=== PATIENT | female | born 1950 | race Caucasian/White ===

== ENCOUNTER → 2023-09-08 06:34 | Day surgery (SDC) | payer OTHER, SELFPAY | LOC: CATH 06:34 | PROVIDERS: ATTENDING PHYSICIAN Internal Medicine; FAMILY PHYSICIAN Family Medicine | DX: I08.3 Combined rheumatic disorders of mitral, aortic and tricuspid valves (principal); R00.2 Palpitations; E78.5 Hyperlipidemia, unspecified; Z87.891 Personal history of nicotine dependence; Z79.82 Long term (current) use of aspirin | CPT/HCPCS: 93312; 93320; 93325 ==

== ENCOUNTER → 2023-09-09 14:27 | Outpatient (REF) | payer OTHER, SELFPAY | LOC: RAD 14:27 | PROVIDERS: ATTENDING PHYSICIAN Thoracic Surgery (Cardiothoracic Vascular Surgery); FAMILY PHYSICIAN Family Medicine | DX: I34.0 Nonrheumatic mitral (valve) insufficiency (principal); Z01.818 Encounter for other preprocedural examination | CPT/HCPCS: 71275; 74174; Q9967 ==

== ENCOUNTER 2023-09-15 04:42 | Inpatient (IN) | payer OTHER, SELFPAY ==
[2023-09-01 07:46] VITALS: BMI 20.8
[2023-09-01 08:45] LABS: % Basophils 1.4 % (0-2); % Eosinophils 2.9 % (0-6); % Immature Granulocytes 0.2 % (0-0.5); % Lymphocytes 29.5 % (20.5-51.1); % Monocytes 9.4 % (1.7-9.3); % Neutrophils 56.6 % (42.2-75.2); Absolute Basophils 0.1 10^3/uL (0-0.2); Absolute Eosinophils 0.1 10^3/uL (0-0.7); Absolute Lymphocytes 1.2 10^3/uL (1.2-3.4); Absolute Monocytes 0.4 10^3/uL (0.1-0.6); Absolute Neutrophils 2.4 10^3/uL (1.4-6.5); Hematocrit 39.3 % (37.0-47.0); Hemoglobin 14.1 g/dL (12.0-16.0); Mean Corp Hgb Conc. 35.9 g/dL (33.0-37.0); Mean Corpuscular Hgb 32.8 pg (27.0-31.0); Mean Corpuscular Volume 91.4 fL (81.0-99.0); Mean Platelet Volume 9.7 fL (7.4-10.4); Nucleated Red Blood Cells % 0 %; Platelet Count 331 10^3/uL (130-400); White Blood Cell Count 4.2 10^3/uL (4.8-10.8)
[2023-09-01 08:46] LABS: INR 1.02; PT 13.7 Sec (11.4-14.6)
[2023-09-01 08:47] LABS: APTT 29.9 Sec (23.4-35.0)
[2023-09-01 09:05] LABS: Urine Albumin Negative (Neg - Trace); Urine Bilirubin Negative (Negative); Urine Character Clear (Clear); Urine Color Yellow; Urine Glucose Negative (Negative); Urine Ketone Negative (Negative); Urine Leukocyte Negative (Negative); Urine Nitrite Negative (Negative); Urine Occult Blood Negative (Negative); Urine Specific Gravity 1.015 (<1.030); Urine Urobilinogen Negative (Neg - 1+)
[2023-09-01 09:11] LABS: ALT (SGPT) 20 U/L (0-35); AST (SGOT) 33 U/L (14-36); Albumin 4.6 g/dl (3.5-5.0); Alkaline Phosphatase 74 U/L (38-126); Blood Urea Nitrogen 18 mg/dl (7-17); Calcium 10.2 mg/dl (8.4-10.2); Carbon Dioxide 33 mmol/L (22-30); Chloride 101 mmol/L (98-107); Direct Bilirubin 0.4 mg/dl (0.0-0.4); Estimated Creatinine Clearance 61 ml/min; Glucose 87 mg/dl (70-99); Sodium 139 mmol/L (135-145); Total Bilirubin 1.4 mg/dl (0.2-1.3); Total Protein 7.6 g/dl (6.3-8.2); eGFR > 60.00
[2023-09-01 10:20] LABS: Glycohemoglobin (HgbA1c) 5.3 % (4.0-5.6)
--- NOTE | 2023-09-01 10:29 | CM ---
spoke to pt in PAT's , she is prev indep, lives with her S.O. in a 2 story home with 1 step to enter. she denies any dme's. she has the cardiac educ book, soap and instructions. she is agreeable to a f/u visit from the ct transitional care nurse
after dc. plan is for MVR 09/15, cm role explained and all questions answered.
[2023-09-15] VITALS (15 sets, daily range): BP systolic 103–143; BP diastolic 51–82; BMI 19.8
[2023-09-15] MEDS: PROTONIX 40 MG PO (05:06)
[2023-09-15] MEDS: BACTROBAN 2% OINTMENT 1 APPLIC NASAL ×2 (05:07→19:54)
[2023-09-15] MEDS: MAGNESIUM OXIDE 500 MG PO (05:07)
[2023-09-15] MEDS: LOPRESSOR 25 MG PO (05:07)
--- NOTE | 2023-09-15 05:25 | PTCARENOTE ---
Pt arrived to CVICU from home for same day admission; x2 home showers confirmed; pt prepped and clipped; CHG wipes provided; all admission and pre-op questions asked and answered; Home medications confirmed; ABO lab drawn and sent; pre-op medication
administered; pt's family brought to bedside; awaiting call from CVOR;
--- NOTE | 2023-09-15 06:10 | W.CVOR.SURPR ---
CVOR Surgeon Immed Pre Op
-
I have examined this patient prior to performance of the scheduled procedure.
The patient's condition is unchanged from the time of the dictated/written History and
Physical and the patient is able to undergo the scheduled procedure.
MV Repair, +/- CANDY Clip, will need to really look carefully at the AV for the degree of AI.
[2023-09-15 07:07] LABS: ACT+ - POC 82 Seconds (82-134)
[2023-09-15 07:22] LABS: B.E. - POC 1.4 mmol/L; Glucose - POC 90 mg/dl (65-99); HCO3 - POC 27 mmol/L (21-29); Hematocrit - POC 32 % PCV (37-47); Hemodilution- POC No; Ionized Calcium - POC 1.28 mmol/L (1.12-1.27); PCO2 - POC 46 mmHg (35-45); PO2 - POC 487 mmHg (80-100); Potassium - POC 3.5 mmol/L (3.6-5.0); Sodium - POC 142 mmol/L (135-145); pH - POC 7.38 (7.35-7.45)
[2023-09-15 07:47] LABS: Urine Albumin Trace (Neg - Trace); Urine Bilirubin Negative (Negative); Urine Character Clear (Clear); Urine Color Yellow; Urine Glucose Negative (Negative); Urine Ketone Negative (Negative); Urine Leukocyte Negative (Negative); Urine Nitrite Negative (Negative); Urine Occult Blood Negative (Negative); Urine Specific Gravity 1.015 (<1.030); Urine Urobilinogen Negative (Neg - 1+)
[2023-09-15 08:12] LABS: ACT+ - POC 443 Seconds (82-134)
--- NOTE | 2023-09-15 08:22 | CM ---
Reviewed chat. Ms. Don is in the operating room today. Prior to admission she resides with her significant other in a two story home with one step to enter. She does not have any DME in the home. Medical work-up in progress. The discharge plan
is to return home with her significant other and a home visit by the Cardiothoracic Transitional Care Nurse when medically stable.
[2023-09-15 08:45] LABS: ACT+ - POC 467 Seconds (82-134)
[2023-09-15 08:47] LABS: B.E. - POC 5.1 mmol/L; Glucose - POC 110 mg/dl (65-99); HCO3 - POC 27 mmol/L (21-29); Hematocrit - POC 22 % PCV (37-47); Hemodilution- POC Yes; Hemoglobin Calculated - POC 7.5; Ionized Calcium - POC 0.94 mmol/L (1.12-1.27); PCO2 - POC 29 mmHg (35-45); PO2 - POC 362 mmHg (80-100); Potassium - POC 4.5 mmol/L (3.6-5.0); Sodium - POC 137 mmol/L (135-145); pH - POC 7.58 (7.35-7.45)
[2023-09-15 09:11] LABS: ACT+ - POC 441 Seconds (82-134)
[2023-09-15 09:27] LABS: B.E. - POC 2.8 mmol/L; Glucose - POC 148 mg/dl (65-99); HCO3 - POC 27 mmol/L (21-29); Hematocrit - POC 30 % PCV (37-47); Hemodilution- POC Yes; Hemoglobin Calculated - POC 10.3; Ionized Calcium - POC 1.05 mmol/L (1.12-1.27); O2 Saturation %Calculated-POC 99.9 5 (92-96); PCO2 - POC 37 mmHg (35-45); PO2 - POC 334 mmHg (80-100); Potassium - POC 4.1 mmol/L (3.6-5.0); Sodium - POC 140 mmol/L (135-145); pH - POC 7.47 (7.35-7.45)
[2023-09-15 09:58] LABS: ACT+ - POC 112 Seconds (82-134)
[2023-09-15 10:04] LABS: B.E. - POC -0.4 mmol/L; Glucose - POC 133 mg/dl (65-99); HCO3 - POC 24 mmol/L (21-29); Hematocrit - POC 24 % PCV (37-47); Hemodilution- POC Yes; Hemoglobin Calculated - POC 8.2; Ionized Calcium - POC 1.32 mmol/L (1.12-1.27); PCO2 - POC 34 mmHg (35-45); PO2 - POC 513 mmHg (80-100); Potassium - POC 3.7 mmol/L (3.6-5.0); Sodium - POC 143 mmol/L (135-145); pH - POC 7.44 (7.35-7.45)
--- NOTE | 2023-09-15 10:37 | W.PN.CT.SURG ---
CT Surgery Operative Note
-
CARDIAC SURGERY OPERATIVE REPORT
Preoperative Diagnosis: Myxomatous degeneration the mitral valve, with severe mitral valve insufficiency, symptomatic
Postoperative Diagnosis: Same
Procedure(s) Performed:
1. Standard sternotomy with aortic and bicaval cannulation
2. Radical mitral valve repair [30 mm band annuloplasty, closure of P1 P2 cleft and P2 P3 cleft, 2 pairs of CV 4 [place]-Joel to the posterior leaflet and 1 pair to the A2 segment of the anterior leaflet]
3. Left atrial appendage ligation [45 mm clip]
4. Placement of temporary atrial ventricular pacing wires
5. Transesophageal echocardiography
Date of Surgery: 09/15/2023
Comorbidities:
1. 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
2. PVCs
3. Hypertension
4. Former smoker of 1 pack/day for 35 years
5. Raynaud's syndrome
6. Osteoporosis
7. Spinal stenosis
8. Cataracts status post resection
9. Acute on chronic congestive heart failure with EF of approximately 40% with global hypokinesis preoperatively
Attending Surgeon: Daniel Martinez MD, MS
Assistants: Abigail Dudley PA-C (present and necessary to nurse first assist, retraction, suction, exposure, suture management, and wound closure under my direction)
Anesthesiology: Manuelito Rodarte MD and Glory Tello CRNA
Scrub and Circulating RNs: Marsha Ragsdale, RN, Sonia Disla RN
Surgical Supply Assistant: Anahi Cross CCP
Anesthesia: GETA
EBL: per perfusion records
Products: 1 prbc
CPB Time: 86 minutes
Aortic Cross Clamp Time: 55 minutes
Indication(s) for Procedures: This is a 73-year-old female with known mitral valve insufficiency. Repeat echocardiogram recently demonstrates severe eccentric anterior directed mitral valve insufficiency. Her LV dimensions were also starting to
dilate her EF had dropped slightly. She met stage D and class I indication for mitral valve intervention.
Mitral Valve Description: By leaflet thickening, extremely tall and long posterior leaflet with an enlarged prolapsing P2 scallop. Large cleft between P1 and P2 and P2 and P3. Dilated annulus mostly at the P2 P3 origin.
Findings: Ventricular ejection fraction preoperatively was approximate 55% with no regional wall motion abnormalities. Following surgery EF did decline to approximately 40%, global hypokinesis without regional wall motion abnormalities. Mitral
valve was repaired by/reapproximation at P1 P2 and P2 P3 followed by CV 4 Dufur-Joel neochordoplasty to the P2 scallop followed by a single [place]-Joel from the posterior medial pathway muscle head to the A2 segment. I then remodeled the anterior
leaflet at the free margin at A2 A3. The annulus was supported with a total of 12 nonpledgeted 2 Ethibond sutures from trigone to trigone with a 30 mm band these were secured with core knots. Dynamic inflation of the left ventricle demonstrated a
competent valve, ink test along the coaptation margin demonstrated a posterior coaptation line with approximately 6 to 8 mm of coaptation height. At the conclusion of the case, there is no residual mitral valve insufficiency, no systolic anterior
motion of the leaflets, and a mean gradient of 1 across the mitral valve. Cardiac index was approximately 1.7 and improved with volume and blood to 1.9 without inotropic support. Hemodynamics were stable. She regained sinus rhythm after short
period of atrial pacing. Left atrial pended was verified to be free of any thrombus or debris preoperatively. Following surgery the appendage was totally occlusive. The base was quite wide and large and was difficult to place the clip completely
flush due to the dimensions.
Specimen(s): None.
Prosthesis:
1. 30mm FLORES PhysioFlex Band, SN [id number]
2. 3 pairs of CV-4 GoreTex chords
3. Multiple 5-0 prolene sutures
Description of Procedure: The patient was taken to the operating room. Their identity and procedure to be performed were verified and they were positioned supine on the operating table. Induction via general anesthesia with endotracheal intubation
was performed and central venous access and arterial monitoring were inserted. A preoperative transesophageal echocardiogram was performed to assess cardiac function and valvular function. The patient was then prepped and draped from chin to feet in
a sterile fashion. A preoperative time-out was performed with all members of the team present. A midline chest incision was performed along with median sternotomy. The innominate vein was isolated. Full heparinization was given (a total of 40,000
units). We created a pericardial well. The aortic cannulation site was chosen where it was soft, pliable, and free of calcium. Cannulation was performed with an arterial cannula in the ascending aorta, angled metal tip cannular in the superior vena
cava and straight bendable cannula in the inferior vena cava. The arterial cannula line had an appropriate bounce and correlating pressures. Next, a root vent/antegrade cannula was inserted into the ascending aorta. The ACT was confirmed to be over
400 and retrograde autologous priming was performed before commencing cardiopulmonary bypass. The pulmonary artery was away from the aorta to facilitate a clamp site. Heart was then elevated rightward and the base of the appendage was
measured and sized to a 45 mm clip. Sondergaard�s groove was developed after creating the oblique sinus. The aortic cross-clamp was placed after decreasing the flow on the bypass and mean arterial pressure. A total of 1.2L initial dose of antegrade
Del-Nido cardioplegia solution was given and planned for re-dosing every 75 minutes as necessary. There was rapid electro-mechanical arrest of the heart at 400 cc of cardioplegia. The left ventricle was observed for distention on echocardiogram and
manual palpation. Cold slush was placed into a lap on the RV and we systemically cooled to 34 degrees centigrade.
Carbon dioxide was used to flood the field. The mitral valve was access via the intra-atrial groove followed by valve analysis. The mitral valve was repaired as described above. The left ventricular vent was repositioned across the mitral valve
into the left ventricular and the left atrium was closed with a 3-0 prolene.
De-airing maneuvers were performed and temporary bipolar ventricular pacing wires were placed on the base of the right ventricle. The patient was placed in a Trendelenburg position and flows on bypass were lowered. The aortic cross clamp was removed
and flows were slowly brought back up. The left atrial suture line was hemostatic. Transesophageal echocardiography revealed no evidence of systolic anterior motion and ventricular function was normal. Once de-airing was satisfactory the left
ventricular and root vents were removed. After verifying acceptable parameters, we initiated weaning from cardiopulmonary bypass. Once we were off cardiopulmonary bypass, the venous cannulas was clamped and removed sequentially. A test dose of
protamine was administered and the patient was monitored for any adverse reaction before resuming protamine. Once half of the protamine dose was delivered, pump suckers were turned off and the systolic blood pressure was lowered for aortic
decannulation. The aortic cannula was removed and purse strings were tied down. All cannulation sites were oversewn with a 4-0 prolene. The left atrial suture line was inspected and hemostasis was confirmed. Mediastinal hemostasis was obtained. Two
#24 Luis drains were placed within the pericardium along with a single 19 [place] Luis drain to the right hemithorax. The sternum was approximated with 4 #6 single and 3 #6 double stainless steel wires. Fascia was approximated with #1 vicryl
suture. The subcutaneous, dermis and epidermis were closed in layers in a running fashion. All suture taken with care to avoid inadvertent puncture to the bilateral breast implants. The skin wound was cleansed and dressed.
All instrument, sponge, and needle counts were confirmed to be correct x 2 at the end of the operation. The patient was transferred to the cardiac intensive care unit in critical but stable condition.
I, Dr. Daniel Martinez, was present, scrubbed for, and performed all critical elements of this procedure.
Daniel Martinez MD, MS
Cardiothoracic Surgeon
[facility]
This dictation was created using the [employer] dictation system. Please excuse any grammatical, typographical, or 'sound alike' errors
[2023-09-15 10:44] LABS: Glucose - Point of Care 117 mg/dl (70-99)
--- NOTE | 2023-09-15 10:45 | W.PN.UPDATE ---
Update Note
Progress Note Update
Crystalloid:� 3200
U.O.:� 400
UF:� 2200
Blood:� 1uPRBCs
Wires:� AV
Inotropes:� None
Pressors:� Levophed
Sedatives:� Precedex
�
NEURO: sedated on Precedex, pupils +1mm B/L
RESP: #8OT @22cm>12/550/60/5. Lungs clear B/L. 2 mediastinal (15cc on arrival) and R pleural (10cc on arrival) chest tubes to -20cm suction. Sanguineous drainage
CV: RRR +S1, S2, no S3, no�rub, no murmur. Dermabond to median sternotomy. RIJ w/Tiff locked @ 49cm. PA 29/14; CVP 8; C.O 3.7/CI 2.7
ABD: round, soft, no BS
EXT: no edema, +2/4 DP pulses B/L, no femoral bruit, left radial A-line intact
: Lauren with clear yellow urine
�
A/P: POD #0 s/p Radical mitral valve repair [30 mm band annuloplasty, closure of P1 P2 cleft and P2 P3 cleft, 2 pairs of CV 4 [place]-Joel to the posterior leaflet and 1 pair to the A2 segment of the anterior leaflet], CANDY Clip
DYLAN: EF�50-55%
- wean and extubate
- start ASA 81mg when tolerating PO
- Wean levophed for goal MAPs >65
- F/u ABG, EKG, and labs
- Goal CVP >10 while on pressors; 5% albumins ordered PRN
- will start low dose BB when BP allows
- will need instruction regarding antibiotic prophylaxis for dental and invasive procedures
- Cardiology consulted
�
# acute surgical blood loss anemia-expected
- trend CBC
- transfusion goal Hgb <8
- will start Vit C and IV Iron x 3 days�
�
# Hyperglycemia
- insulin infusion x 24h
�
#Raynaud's Syndrome
- continue to monitor extremities while on pressors
[2023-09-15] MEDS: ALBUMIN 5% 250 IV ×3 (10:51→22:12)
[2023-09-15 10:55] LABS: Hematocrit 27.9 % (37.0-47.0); Hemoglobin 10.3 g/dL (12.0-16.0); Platelet Count 137 10^3/uL (130-400)
[2023-09-15 10:56] LABS: B.E. -0.5 mmol/L; HCO3 22.8 mmol/L (21-28); Ionized Calcium 1.19 mMOL/L (1.15-1.33); PCO2 32 mmHg (32-35); PO2 222 mmHg (83-108); Potassium 3.8 mMOL/L (3.5-5.1); Sodium 138 mMOL/L (136-145); pH 7.46 (7.35-7.45)
[2023-09-15 11:08] LABS: INR 1.65; PT 19.3 Sec (11.4-14.6)
[2023-09-15 11:09] LABS: APTT 30.7 Sec (23.4-35.0)
[2023-09-15 11:10] LABS: Blood Urea Nitrogen 12 mg/dl (7-17); Estimated Creatinine Clearance 71 ml/min; Glucose 112 mg/dl (70-99); Magnesium 3.1 mg/dl (1.6-2.3)
[2023-09-15] MEDS: KCL 50 IV ×2 (11:10→15:26)
--- NOTE | 2023-09-15 11:20 | PTCARENOTE ---
Received pt from [facility] at 1030; pt intubated and sedated; NSR on monitor and VSS; Epicardial A/v wires set to back up VVI 30/10 and no pacing noted; + rub; RIJ Cordis, [place] floated to 47, Right A-line and PIV x2, all lines leveled and zeroed; Levo,
Insulin and Precedex infusing see flow sheet for details; lungs diminished bilaterally; ET tube size 8 and 22 @ lip; Vent settings SIMV FiO2 40%, Rate 12, Tidal Volume 500 and PEEP 5; CT x3 to -20 wall suction, no air leak and no crepitus noted;
hypoactive bowel sounds; Lauren Catheter draining clear yellow urine; palpable pulses throughout; no edema noted; Sternal incision C/D/I; see nursing documentation for further details.
CI 1.94
CO 2.98
SVR 1610
--- NOTE | 2023-09-15 11:32 | W.PN.CD ---
Today's Communication / Plan
-
continue current care plan
Impression / Plan
-
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
09/15/23: s/p Radical mitral valve repair [30 mm band annuloplasty, closure of P1 P2 cleft and P2 P3 cleft, 2 pairs of CV 4 [place]-Joel to the posterior leaflet and 1 pair to the A2 segment of the anterior leaflet] & Left atrial appendage ligation [45
mm clip]
doing well immediately post operatively
continue post op protocol
CMY:
-post op ef 40%--not unexpected with severe MR and ef of 50-55% preop
-add GDMT as able
Data
Intraop DYLAN: 09/15/23
�CONCLUSIONS
Preop
Overall LVEF is approximately 50-55% with no RWMA.
�Mildly dilated left atrium.
�Mildly dilated right atrium.
�Mild tricuspid regurgitation.
�Dilated coronary sinus.
�Moderate to severe mitral regurgitation.
�MV annulus is dilated with minimal calcification.
�MR etiology is from PMV leaflet prolapse (P2).
�Mild aortic insufficiency.
�Mild sessile atheroma seen in the descending aorta and distal arch.
POST OPERATIVE FINDINGS
�The patient underwent a MV repair with a size 30 Annuloplasty band, [place]-chords,
�and ligation of the LA appendage.� Postop rhythm remains sinus.� RV function
�remains normal.� Overall LVEF is now approximately 40% with mild global
�hypokinesis.� No significant MR noted.� No perivalvular leaks are noted.� No
�systolic anterior motion of the AMV leaflet noted.� There is no turbulent flow
�in the LVOT.� Mild TR.� PV appears normal.� Mild AI is unchanged (perhaps less
�than preop level).� The LA appendage is clipped.� Just a small area of the
�dilated LA appendage base is left.� No color Doppler flow seen past the clip.�
�Aortic scan is unchanged.
Physical Exam
Vital Signs/Labs
Vital Signs
Temp Pulse Resp BP Pulse Ox
95.7 F L 84 12 143/64 100
09/15/23 11:03 09/15/23 11:00 09/15/23 11:03 09/15/23 05:04 09/15/23 11:19
09/14/23 09/15/23 09/16/23
06:59 06:59 06:59
Actual Weight 52.3 kg
09/15/23 10:42
PT 19.3 Sec (11.4-14.6) H 09/15/23 10:42
INR 1.65 09/15/23 10:42
APTT 30.7 Sec (23.4-35.0) 09/15/23 10:42
Magnesium 3.1 mg/dl (1.6-2.3) H 09/15/23 10:42
Physical Exam
Constitutional: No acute distress and Other (intubated and sedate)
Cardiovascular: Rhythm & rate is regular, Pedal edema is absent, JVD pressure is normal, Systolic murmur absent and Diastolic murmur absent
Respiratory: Respiratory effort normal, Lungs clear to auscul., Wheeze Absent, Crackles Absent and Rhonchi Absent
Neuro/Psych: AO x 3
Data Reviewed
-
Date of Service: September 15, 2023
EKG: Tracing Personally Visualized and interpreted (nsr prolonged qt)
[2023-09-15] MEDS: MORPHINE SULFATE 2 MG IV (11:49)
[2023-09-15] MEDS: NSS 500 IV (11:50)
[2023-09-15] MEDS: ZINACEF 1500 MG IV ×2 (11:50)
[2023-09-15] MEDS: STERILE WATER FOR INJECTION 16 ML IV ×2 (11:50)
[2023-09-15] MEDS: TYLENOL PO ×2 (11:51→15:13)
[2023-09-15 12:02] LABS: Glucose - Point of Care 83 mg/dl (70-99)
--- NOTE | 2023-09-15 12:51 | PTCARENOTE ---
Mediastinals Chest tube with +1 continuous air leak; P. Murt CVPA updated and in to see pt; no new orders at this time.
--- NOTE | 2023-09-15 13:06 | CON.INTV ---
Consultation
Consultation Request
Date/Time Consultation Requested: 09/15/2023 - 0959
Date/Time Consultation Performed: 09/15/2023
Requesting Provider: Wicho Amaro PA-C
Performing Provider: Dr. Jacinto
Reason for Consultation: s/p radical mitral valve repair
Medical History
-
Chief Complaint: radical MV repair
History of Present Illness:
73-year-old female former tobacco smoker with a past medical history of mitral regurgitation presents for mitral valve repair. She is known to Dr. Martinez with last office visit on 08/26/2023. At that office visit, the patient discussed her severe
eccentric anteriorly-directed mitral valve insufficiency with prolapse of the posterior leaflet with myxomatous degeneration. She has a preserved LVEF at 55% with no regional WMA and RV function was normal. She had a left heart catheterization in
August 2023 which did not demonstrate any significant CAD with mild left ventricular enlargement and global hypokinesis with an EF of approximately 40% visually. After Dr. Martinez reviewed her echocardiogram, he concluded patient has dilated
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 Patient also has mild�moderate tricuspid valve insufficiency with mild�moderate aortic valve insufficiency. Patient does endorse shortness of breath and has
stage D symptomatology with a class I indication for mitral valve intervention. She thus presented today for standard sternotomy with radical mitral valve repair and left atrial appendage ligation, which she underwent without any immediate
complications. Patient was transferred to the CVICU postoperatively and critical care services consulted for additional management/recommendations.
When I saw the patient she was in bed in no acute distress on 4 L/min nasal cannula saturating 100%. Right-sided IJ cordis in place with PAC showing PAP: 33/14. Right radial A-line shows BP 131/57. HR: 80; CVP: 11. NIBP: 124/67. Patient has 2
mediastinal chest tubes and a right-sided pleural catheter. There is a level 1 air leak in the Pleur-evac containing the mediastinal chest tubes. Patient is on insulin drip at 0.6 units/h. She is sleepy but easily arousable and answering my
questions appropriately. She has some chest discomfort but no shortness of breath, headache, abdominal pain, fevers or chills.
PMHx: History of PVCs, hyperlipidemia, former tobacco use disorder (97-hdyo-qvth history, quit in her late 40s), suspected Raynaud's phenomenon, palpitations, severe mitral regurgitation, spinal stenosis, cataracts
PSHx: Spinal fusion (L2-3 - 2000); dental surgery, left femur fracture, cataract surgery, breast implants
Past Medical History
Past Medical History: Other (above as per HPI)
Past Surgical History: Other (above as per HPI)
Social History
Tobacco: Former Smoker (1PPD since at age 17, quit in her 50s)
Alcohol: Occasional
Drug: None
Family History
Family History: CAD (Maternal grandmother) and Diabetes (Father; siblings)
Allergies / Home Medications
Allergies
Allergy/AdvReac Type Severity Reaction Status Date / Time
No Known Allergies Allergy Verified 08/28/23 14:20
Home Medications
Medication Instructions Recorded Confirmed Last Taken Type
cholecalciferol (vitamin D3) 50 50 mcg PO BID 08/11/23 09/15/23 09/14/23 08:00 History
mcg (2,000 unit) capsule (Vitamin
D3)
furosemide 20 mg tablet 20 mg PO DAILY 08/11/23 09/15/23 09/14/23 08:00 History
metoprolol succinate 25 mg 25 mg PO DAILY 08/11/23 09/15/23 09/14/23 08:00 History
tablet,extended release 24 hr
wortthrqxctq-pxijzrta-ludiil tablet 1 tab PO BID 08/11/23 09/15/23 09/14/23 08:00 History
vitamin B complex 1 tab PO BID 08/11/23 09/15/23 09/14/23 08:00 History
aspirin 81 mg chewable tablet 81 mg PO DAILY 09/08/23 09/15/23 09/14/23 08:00 History
Review of Systems
-
History Source: Patient
All other systems: Negative unless noted (12 point ROS performed and is negative unless mentioned above.)
Vitals / Labs / Diagnostic Testing
Vital Signs
Temp Pulse Resp BP Pulse Ox
97.2 F 78 11 143/64 100
09/15/23 12:03 09/15/23 12:30 09/15/23 12:30 09/15/23 05:04 09/15/23 12:03
Lab Data
09/15/23 10:42
Laboratory Results
09/15/23
10:42
PT 19.3 H
INR 1.65
APTT 30.7
pH 7.46 H
pCO2 32
pO2 222 H
HCO3 22.8
O2 Delivery Level
Diagnostic Testing:
Physical Exam
-
HEENT: Normocephalic and Anicteric
Cardiovascular: S1/S2 and Peripheral Edema (Negative)
Respiratory: Clear, Wheeze (Negative), Rales (Negative), Rhonchi (Negative) and Non-Labored Respirations
GI: Soft, Non Distended and Non Tender
Neurology: Awake and Alert
Skin: Warm and Dry
General: Comfortable and Chills (Negative)
Assessment
-
Assessment: 73-year-old female former tobacco smoker with a PMHx of mitral regurgitation presents for mitral valve repair. Patient has stage D symptomatology and meets class I indication for mitral valve intervention. She presented today for
standard sternotomy with radical mitral valve repair and left atrial appendage ligation, which she underwent without any immediate complications. Patient was transferred to the CVICU postoperatively and pulmonary/critical care services consulted
for additional management/recommendations.
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
Impression:
#Severe mitral valve insufficiency with myxomatous degeneration s/p radical mitral valve repair (POD #0)
#PVCs s/p left atrial appendage ligation (POD#0)
#Anemia
#Former tobacco use disorder with 22-qyzi-gwcm history, quit approximately 15 years ago
Plan:
Patient already extubated to nasal cannula
Continue supplemental oxygen with goal SpO2 >90-94%
Encourage incentive spirometer use
Pulmonary artery catheter parameters will be followed
Pressors/antihypertensive/inotropes/diuretics will be provided as needed
Monitor chest tubes output
Monitor air leak in the Pleur-evac involving the mediastinal chest tubes
Monitor hemoglobin
Monitor platelet count and coags
Transfuse blood product if needed
CT surgery following chest tubes
Monitor blood sugar with goal BG 140-180
Insulin drip per protocol
Aspiration precautions
DVT prophylaxis
Early nutrition
Early mobilization
Critical care statement: A total of 41 minutes of critical care time was provided for this patient today. This includes management of ventilator, spontaneous breathing trial, arterial blood gases, pressors, of unstable vital signs, evaluation of the
patient at bedside, reviewing the patient's pertinent medical records including radiographs, microbiology, laboratory evaluations, and discussion with primary team and critical care nursing.
Data:
CXR 09-15-2023: Postoperative chest. Support tubes and lines.
[2023-09-15] MEDS: PEPCID 20 MG IV ×2 (13:14→19:55)
[2023-09-15] MEDS: OFIRMEV 100 IV (13:14)
[2023-09-15] MEDS: NSS (PRESERVATIVE FREE) 8 ML IV ×2 (13:14→19:55)
[2023-09-15 13:21] LABS: Glucose - Point of Care 84 mg/dl (70-99)
--- NOTE | 2023-09-15 13:48 | PTCARENOTE ---
Respiratory at bedside pt placed on CPAP.
[2023-09-15 14:01] LABS: Glucose - Point of Care 87 mg/dl (70-99)
--- NOTE | 2023-09-15 14:10 | PTCARENOTE ---
Pt failed CPAP; respiratory at bedside placed pt back on SIMV.
[2023-09-15 14:27] LABS: Hematocrit 29.5 % (37.0-47.0); Hemoglobin 10.9 g/dL (12.0-16.0); Platelet Count 186 10^3/uL (130-400)
--- NOTE | 2023-09-15 14:44 | PTCARENOTE ---
Respiratory at bedside pt placed on CPAP.
[2023-09-15 14:58] LABS: Glucose - Point of Care 129 mg/dl (70-99)
[2023-09-15] MEDS: PACERONE PO ×2 (15:13→22:12)
[2023-09-15 15:15] LABS: B.E. -1.9 mmol/L; HCO3 19.9 mmol/L (21-28); Ionized Calcium 1.19 mMOL/L (1.15-1.33); O2 Saturation % 98.8 % (94-98); PCO2 25 mmHg (32-35); PO2 203 mmHg (83-108); Potassium 3.8 mMOL/L (3.5-5.1); Sodium 140 mMOL/L (136-145); pH 7.51 (7.35-7.45)
--- NOTE | 2023-09-15 15:22 | PTCARENOTE ---
Labs reviewed with CV SPIKE MAKER; pt extubated at this time; 6L NC 100%.
[2023-09-15] MEDS: ZINACEF 750 MG IV ×2 (15:26→23:59)
[2023-09-15] MEDS: STERILE WATER FOR INJECTION 8.30000000000000071 ML IV ×2 (15:27→23:59)
[2023-09-15] MEDS: TORADOL 15 MG IV (16:15)
[2023-09-15 17:05] LABS: Glucose - Point of Care 92 mg/dl (70-99)
[2023-09-15] MEDS: DILAUDID 0.25 MG IV ×2 (18:08→22:40)
[2023-09-15] MEDS: LOW STRENGTH ASPIRIN 81 MG PO (18:08)
[2023-09-15 19:06] LABS: Glucose - Point of Care 80 mg/dl (70-99)
[2023-09-15] MEDS: CORDARONE 103 MG IV (19:11)
[2023-09-15] MEDS: CORDARONE 518 MG IV (19:12)
[2023-09-15] MEDS: TYLENOL 650 MG PO (19:54)
[2023-09-15] MEDS: SENOKOT-S 1 TABLET PO (19:54)
[2023-09-15] MEDS: ROXICODONE 5 MG PO (19:55)
[2023-09-15] MEDS: LOPRESSOR 12.5 MG PO (19:55)
--- NOTE | 2023-09-15 20:15 | PTCARENOTE ---
Received pt from mika RN. Walking rounds completed. Pt AAOx3, c/o 03/12 sternal pain-see MAR for medication administration. NSR on monitor with PACs. Epicardial A/V wires to back of VVI 01/06, no pacing noted. Heart tones audible. +Rub. +Palpable
pulses. No edema. RIJ cordis, swan floated o 47 cm. Right radial [place] leveled and zeroed. Pulse ox 100% on 4 L NC. Lung sounds diminished. No cough or sputum. CTx3 (Medsx2 to 1 atrium and right pleural to 1 atrium) maintained to -20 cm wall
suction draining red fluid. +1 intermittent air leak noted to meds atrium. Hypoactive BS. Lauren maintained and draining adequate amount of clear, yellow urine. Sternal incision C/D/I. Amio gtt infusing per protocol. Insulin gtt titrated per critical
care glycemic protocol. See work list for full assessment and interventions.
[2023-09-15 21:01] LABS: Glucose - Point of Care 135 mg/dl (70-99)
[2023-09-15 23:02] LABS: Glucose - Point of Care 106 mg/dl (70-99)
[2023-09-16] VITALS (33 sets, daily range): BP systolic 89–125; BP diastolic 46–63; PULSE 64; O2SAT 96–98; BMI 22.0
[2023-09-16] MEDS: TYLENOL 650 MG PO ×7 (00:08→23:46)
[2023-09-16 00:36] LABS: Mixed Venous O2 Saturation 67.6 %
--- NOTE | 2023-09-16 00:45 | PTCARENOTE ---
Pt reassessed. VSS. CVPA notified of decrease in urine output and C.I 1.94, new order received to give 250cc Albumin and to send MVo2.
[2023-09-16 01:04] LABS: Glucose - Point of Care 83 mg/dl (70-99)
[2023-09-16] MEDS: TORADOL 15 MG IV (02:14)
[2023-09-16 02:35] LABS: Hematocrit 30.6 % (37.0-47.0); Hemoglobin 10.7 g/dL (12.0-16.0); Mean Corpuscular Hgb 33.1 pg (27.0-31.0); Mean Corpuscular Volume 94.7 fL (81.0-99.0); Mean Platelet Volume 10.3 fL (7.4-10.4); Platelet Count 165 10^3/uL (130-400); Red Blood Cell Count 3.23 10^6/uL (4.20-5.40); Red Cell Dist. Width 12.8 % (11.5-14.5); White Blood Cell Count 14.1 10^3/uL (4.8-10.8)
--- NOTE | 2023-09-16 02:35 | PTCARENOTE ---
C.I-1.56, C.O-2.40, SVR-1966. CVPA aware, AM labs and repeat MVo2 obtained and sent.
[2023-09-16 02:47] LABS: Blood Urea Nitrogen 16 mg/dl (7-17); Calcium 8.4 mg/dl (8.4-10.2); Carbon Dioxide 22 mmol/L (22-30); Chloride 109 mmol/L (98-107); Estimated Creatinine Clearance 71 ml/min; Glucose 114 mg/dl (70-99); Magnesium 2.7 mg/dl (1.6-2.3); Potassium 4.1 mmol/L (3.5-5.1); Sodium 137 mmol/L (135-145); eGFR > 60.00
[2023-09-16] MEDS: DOBUTREX 500 MG 250 IV (02:56)
[2023-09-16 03:06] LABS: Glucose - Point of Care 97 mg/dl (70-99)
--- NOTE | 2023-09-16 03:10 | PTCARENOTE ---
Labs and vitals reviewed with CVPA, order received to start Dobutamine gtt @ 3mcg/kg/min.
[2023-09-16] MEDS: LIDOCAINE 4% PATCH 1 PATCH TOPICAL (03:33)
[2023-09-16] MEDS: ALBUMIN 5% 250 IV ×2 (03:34→12:33)
--- NOTE | 2023-09-16 04:00 | PTCARENOTE ---
C.I-2.57, C.O-3.96. Order received to decrease Dobutamine to 2mcg/kg/min. Nitro gtt started for SBP in 140s. Pt SR on monitor.
[2023-09-16] MEDS: ROXICODONE 5 MG PO ×2 (04:11→13:17)
--- NOTE | 2023-09-16 07:00 | W.PN.CT ---
Today's Communication / Plan
-
-pod #1
-pt was in nsr 70s, got postop po Lopressor and noted to be briefly junctional low 60s with stable BP - held further po BB
-on iv Amio for brief postop a-fib
-started on Dobut and Nitro overnight
-CI 2.61, CO 4.02. Drips: Dobut 2, Nitro 20, Amio 0.5, insulin
-CT output: 2 meds (+1 air leak last night and none this am) 165/315 and R pleur (no air leak) 15/65 in 12/24 hrs
-gave 2 Albumins overnight
-discussed with Dr. Martinez - continue Dobutamine until tomorrow. Continue daily ASA
-d/c insulin
-maintain Lauren for critical I&O
-encourage IS, OOB
Assessment / Plan
-
- Symptomatic Severe MR - s/p Radical mitral valve repair [30 mm band annuloplasty, closure of P1 P2 cleft and P2 P3 cleft, 2 pairs of CV 4 [place]-Joel to the posterior leaflet and 1 pair to the A2 segment of the anterior leaflet]; LAAE with 45mm clip
by Dr. Martinez on 09/15/23, pod #1
- Intraop DYLAN: LVEF preop was approximate 55% with no regional wma.� Following surgery EF did decline to approximately 40%, global hypokinesis without regional wall motion abnormalities. At the conclusion of the case, there is no residual mitral
valve insufficiency, no systolic anterior motion of the leaflets, and a mean gradient of 1 across the mitral valve.�Left atrial appendage was verified to be free of any thrombus or debris preoperatively.� Following surgery the appendage was totally
occlusive.� The base was quite wide and large and was difficult to place the clip completely flush due to the dimensions.
�
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
- PVCs
- Hypertension
- Former smoker of 1 pack/day for 35 years
- Raynaud's syndrome
- Osteoporosis
- Spinal stenosis
- Cataracts status post resection
- Acute on chronic diastolic congestive heart failure with EF of approximately 40% with global hypokinesis preoperatively
- Acute postop blood loss anemia
- Acute postop atelectasis
- Acute postop hypovolemia with subsequent hypervolemia
- Acute postop junctional rhythm - holding BB
Discussed patient care with: Nursing and Care Team
Subjective
-
Date of Service: September 16, 2023
Objective Data
-
PT 19.3 Sec (11.4-14.6) H 09/15/23 10:42
INR 1.65 09/15/23 10:42
APTT 30.7 Sec (23.4-35.0) 09/15/23 10:42
Vital Signs
Vital Signs
Temp Pulse Resp BP Pulse Ox
97.8 F 64 16 119/61 100
09/16/23 00:00 09/16/23 00:15 09/16/23 00:15 09/16/23 00:00 09/16/23 00:00
CT Intake/Output/Weight
09/15/23 09/15/23 09/16/23
06:59 18:59 06:59
Intake Total 1102.9 / 1601.9 499.0 / 1601.9
Output Total 865 / 1070 205 / 1070
Balance 237.9 / 531.9 294.0 / 531.9
SaO2: 100
Physical Exam
-
General: Awake and AOx3
Cardiovascular: Regular rate & rhythm, No Murmurs and Rub
Respiratory: Decreased Breath Sounds
Sternum: Stable
Incision: Clean, Dry and Dressing Intact
Extremities: No Edema (1+ DP b/l)
Data Reviewed
-
Lab Results: Results Reviewed
Medications: Active Meds Reviewed
Chest X-Ray: Report Reviewed and Image Reviewed
ECG: Report Reviewed and Image Reviewed
[2023-09-16 07:22] LABS: Glucose - Point of Care 100 mg/dl (70-99)
--- NOTE | 2023-09-16 07:29 | W.PN.ANS.POP ---
Anesthesia Post Operative
- Anesthesia Post Op Note
Vital Signs Stable-See Nursing Note: Yes
Airway Patent: Yes
Adequate Pain Control: Yes
Change in Mental Status: No
Current Postoperative Nausea & Vomiting: No
Anesthesia Complications: No
General Anesthetic Recall: No
Unplanned Admission: No
Post Op Hydration Adequate: Yes
- -
Selected Entries
09/16/23
07:20
Pulse 62
Resp Rate 11
Arterial Systolic Pressure 120
Arterial Diastolic Pressure 46
MAP (V-Ximm-Utmfqow Monitor) 68
Pulmonary Artery Systolic Pressure 31
Pulmonary Artery Diastolic Pressure 11
Right Atrial Pressure (RA) 9
[2023-09-16] MEDS: LASIX IV (07:46)
[2023-09-16 07:57] LABS: Glucose - Point of Care 98 mg/dl (70-99)
[2023-09-16 08:03] LABS: Glucose - Point of Care 97 mg/dl (70-99)
[2023-09-16] MEDS: PEPCID 20 MG IV ×2 (08:06→20:13)
[2023-09-16] MEDS: NSS (PRESERVATIVE FREE) 8 ML IV ×2 (08:06→20:13)
[2023-09-16] MEDS: STERILE WATER FOR INJECTION 8.30000000000000071 ML IV (08:06)
[2023-09-16] MEDS: ZINACEF 750 MG IV (08:06)
[2023-09-16] MEDS: KCL 20 MEQ PO (08:07)
[2023-09-16] MEDS: FLEXERIL 5 MG PO ×3 (08:07→21:30)
[2023-09-16] MEDS: DILAUDID 0.25 MG IV (08:07)
[2023-09-16] MEDS: SENOKOT-S 1 TABLET PO ×2 (08:08→20:13)
[2023-09-16] MEDS: PACERONE 200 MG PO (08:08)
[2023-09-16] MEDS: VITAMIN C 500 MG PO (08:08)
[2023-09-16] MEDS: NEURONTIN 100 MG PO ×3 (08:08→21:30)
[2023-09-16] MEDS: LOW STRENGTH ASPIRIN 81 MG PO (08:08)
[2023-09-16] MEDS: BACTROBAN 2% OINTMENT 1 APPLIC NASAL ×2 (08:09→20:12)
--- NOTE | 2023-09-16 08:22 | PTCARENOTE ---
Received pt from shiftman RN; pt AAOx3; Junctional on monitor and VSS; RIJ Fidencioanita, [place] floated to 47, Right A-line and PIV x1 all lines leveled and zeroed; Insulin, Dobutamine, Amiodarone and Nitroglycerin all infusing see flow sheet for
details; + rub; Epicardial A/V wires back up set to 30/10 and no pacing noted; Lungs diminished throughout; CT x3 to -20 wall suction no air leak and no crepitus noted; hypoactive bowel sounds; Lauren Catheter draining elmer colored urine; palpable
pulses throughout; no edema noted; sternal incision C/D/I; see nursing documentation for further details.
CI 2.49
CO 3.83
SVR 1253
[2023-09-16] MEDS: MAGNESIUM OXIDE PO ×2 (08:43→20:13)
[2023-09-16] MEDS: LIDOCAINE 4% PATCH TOPICAL (08:43)
--- NOTE | 2023-09-16 08:51 | W.PN.CD ---
Today's Communication / Plan
-
Routine post operative management.
Wean dobutamine.
Encourage incentive spirometry and ambualtion.
First DOC will be metoprolol when ready for GDMT (unless rate will not tolerate).
Hold amiodarone.
Impression / Plan
-
Impression/Plan: 73 y/o female with myxomatous mitral valve leading to severe, degenerative mitral valve regurgitation and HFpEF (preop LVEF 60%) admitted for elective mitral valve repair.
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
-s/p Radical mitral valve repair (#30 mm band annuloplasty, closure of P1/P2 cleft and P2/P3 cleft, 2 pairs of CV 4 [place]-Joel to the posterior leaflet and 1 pair to the A2 segment of the anterior leaflet), 09/15/2023 (Dr. Martinez).
-S/P Left atrial appendage ligation (45 mm Atriclip).
-Routine post operative management.
-Currently on dobutamine for inotropic support (fall in EF post MVR - expected given loss of low pressure chamber).
-Wean dobutamine as tolerated. She will need diuresis soon.
#NICMO
-Non-ischemic.
-Clearly due to an alteration in hemodynamics.
-GDMT when no longer requiring dobutamine.
-First line should be metoprolol succinate.
-She will benefit from ARNi and SGLT2i.
#Accelerated Junctional Rhythm
-New diagnosis.
-NSR post op.
-Hold all rate control agents, including amiodarone.
-I suspect this is from local myocardial edema from surgery and will resolve.
-Repeat EKG this afternoon.
Critical Care Time = 35 minutes.
Subjective/Interval History:
POD #1 from MV repair.
Weight is up 5.8 kg.
Remains on 2LNC.
CI was as low as 1.56 @ 02:06 (SVR = 1900). Dobutamine started, CI now up to 2.49 (SVR = 1200).
EKG shows accelerated junctional rhythm.
DATA:
Intraop DYLAN, 09/15/23:
�CONCLUSIONS
Preop
Overall LVEF is approximately 50-55% with no RWMA.
�Mildly dilated left atrium.
�Mildly dilated right atrium.
�Mild tricuspid regurgitation.
�Dilated coronary sinus.
�Moderate to severe mitral regurgitation.
�MV annulus is dilated with minimal calcification.
�MR etiology is from PMV leaflet prolapse (P2).
�Mild aortic insufficiency.
�Mild sessile atheroma seen in the descending aorta and distal arch.
POST OPERATIVE FINDINGS
�The patient underwent a MV repair with a size 30 Annuloplasty band, [place]ilton-chords,
�and ligation of the LA appendage.� Postop rhythm remains sinus.� RV function
�remains normal.� Overall LVEF is now approximately 40% with mild global
�hypokinesis.� No significant MR noted.� No perivalvular leaks are noted.� No
�systolic anterior motion of the AMV leaflet noted.� There is no turbulent flow
�in the LVOT.� Mild TR.� PV appears normal.� Mild AI is unchanged (perhaps less
�than preop level).� The LA appendage is clipped.� Just a small area of the
�dilated LA appendage base is left.� No color Doppler flow seen past the clip.�
�Aortic scan is unchanged.
DYLAN, 09/08/2023:
CONCLUSIONS
�Normal left ventricular systolic function. Left ventricular ejection fraction
�is 60%.
�
�Severe mitral regurgitation. Prolapse of the posterior mitral leaflet was
�present.
�
�Mild aortic regurgitation.
Cardiac Catheterization, 08/11/2023:
CORONARY ANGIOGRAPHY
Dominance: Right
Left Main: Normal
LAD: Normal
Circumflex: Normal
RCA: Normal
Physical Exam
Vital Signs/Labs
Vital Signs
Temp Pulse Resp BP Pulse Ox
36.1 C 63 22 108/55 99
09/16/23 08:00 09/16/23 08:00 09/16/23 08:00 09/16/23 08:00 09/16/23 08:00
09/14/23 09/15/23 09/16/23
11:59 11:59 11:59
Actual Weight 52.3 kg 58.1 kg
09/16/23 02:11
09/16/23 02:11
PT 19.3 Sec (11.4-14.6) H 09/15/23 10:42
INR 1.65 09/15/23 10:42
APTT 30.7 Sec (23.4-35.0) 09/15/23 10:42
Magnesium 2.7 mg/dl (1.6-2.3) H 09/16/23 02:11
Physical Exam
Constitutional: No acute distress and Comfortable
EENT: Anicteric and Moist mucous membranes
Cardiovascular: Rhythm & rate is regular, Pedal edema is absent, JVD pressure is normal, S1S2 is normal and Murmur/rub/gallop absent
Respiratory: Respiratory effort normal, Lungs clear to auscul., Wheeze Absent, Crackles Absent and Rhonchi Absent
GI: Soft, Distention absent, Flat, Non tender, Normal bowel sounds and Distention present
Neuro/Psych: AO x 3
Data Reviewed
-
Date of Service: September 16, 2023
Medical Decision Making: Reviewed Test Results, Independent Historian Assessment, Test Interpretation and Review of Case with other Provider
EKG: Tracing Personally Visualized and interpreted and Report Reviewed by me
Echo: Report Reviewed by me
X-Ray/CT/US/MRI/NUC/PET: Image Personally Visualized and interpreted and Report Reviewed by me
Medical Tests (PFT, Pathology etc): Report Reviewed by me
Labs: Labs Reviewed by me
--- NOTE | 2023-09-16 09:05 | PTCARENOTE ---
Right Pleural Chest Tube removed per CVPA order; Epicardial wires tested without difficulties; new settings VVI 30/3/0.8 no pacing noted on monitor; Junctional on monitor and VSS.
[2023-09-16 09:13] LABS: Glucose - Point of Care 105 mg/dl (70-99)
--- NOTE | 2023-09-16 10:19 | PTCARENOTE ---
Pt placed on [place] HemoSphere monitor for continuous CI/CO and SVR monitoring; CI 2.7 and SVR 964 on [employer] HemoSphere monitor and CI 2.50, CO 3.85 and SVR 1101 on Lori monitor.
[2023-09-16 10:20] LABS: Glucose - Point of Care 106 mg/dl (70-99)
[2023-09-16 10:53] LABS: Glucose - Point of Care 78 mg/dl (70-99)
--- NOTE | 2023-09-16 11:04 | PTCARENOTE ---
[place] Alisia catheter removed per CVPA order.
[2023-09-16] MEDS: NSS IV (12:01)
[2023-09-16] MEDS: ZOFRAN 4 MG IV (12:33)
--- NOTE | 2023-09-16 14:06 | PTCARENOTE ---
CVPA and Dr Flood at bedside A-line pressure 116/39 HR 49 Junctional on monitor, Amiodarone drips discontinued and Dobutamine decreased to 1 mcg/kg/hr; EKG performed per CVPA order, EKG resulted Junctional with HR 49; CVPA at bedside Epicardial
wires set to AAI 70/10, 100% A-paced on monitor and VSS. Family at bedside and updated.
[2023-09-16] MEDS: FERRLECIT 110 MG IV (15:06)
--- NOTE | 2023-09-16 15:22 | PTCARENOTE ---
Right A-line removed per CV JEWELRY DRILLING MACHINE OPERATOR order; Hemosphere monitoring discontinued at this time.
--- NOTE | 2023-09-16 15:28 | W.PN.INTV ---
Today's Communication / Plan
Recommendations
Encourage IS
Maintain SpO2>90-94%
Pain control
Patient currently CVICU-telemetry status. Automotive Product Engineer/pulmonary service will now sign off. Please reconsult if there are any additional questions/concerns.
Assessment
-
Assessment: 73-year-old female former tobacco smoker with a PMHx of mitral regurgitation presents for mitral valve repair. Patient has stage D symptomatology and meets class I indication for mitral valve intervention. She presented today for
standard sternotomy with radical mitral valve repair and left atrial appendage ligation, which she underwent without any immediate complications. Patient was transferred to the CVICU postoperatively and pulmonary/critical care services consulted
for additional management/recommendations.
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
Impression:
#Severe mitral valve insufficiency with myxomatous degeneration s/p radical mitral valve repair (POD #1)
#PVCs s/p left atrial appendage ligation (POD#1)
#Anemia
#Former tobacco use disorder with [id number]-[id number] history, quit approximately 15 years ago
Plan:
Maintain goal SpO2 >90-94%
Encourage incentive spirometer use
Removal of right-sided cordis per CT surgery
Monitor chest tubes output
there is no longer an air leak in the pleuro-vac water seal chamber
Monitor hemoglobin
Monitor platelet count and coags
Transfuse blood product if needed
CT surgery following chest tubes
Monitor blood sugar with goal BG 140-180
Aspiration precautions
DVT prophylaxis
Early nutrition
Early mobilization
Patient currently CVICU-telemetry status. Automotive Product Engineer/pulmonary service will now sign off. Thank you for allowing me to be involved in care of this patient. Please reconsult if there are any additional questions/concerns.
Data:
CXR 09-16-2023: Slight decrease in lung volumes status post extubation. Persistent bibasilar atelectasis and pleural fluid postoperatively.
CXR 09-15-2023: Postoperative chest. Support tubes and lines.
Subjective Dataa
Subjective Data
Date of Service:
Date of Service: September 16, 2023
Chief Complaint: Automotive Product Engineer Follow Up
Subjective:
Pt seen this afternoon. Doing well. Daughter at bedside with pt. BP of pt is 116/59, HR 70 (she is A-paced). Mediastinal chest tubes x2 in place. No acute events reported from overnight.
Review of Systems
General: Other (negative unless mentioned above)
Objective Data
Data Reviewed
Vital Signs / I&O / Oxygen:
Vital Signs
Temp Pulse Resp BP Pulse Ox
97.7 F 70 23 116/59 95
09/16/23 13:00 09/16/23 17:25 09/16/23 17:25 09/16/23 17:00 09/16/23 17:00
Intake and Output
09/15/23 09/16/23 09/17/23
06:59 06:59 06:59
Intake Total 2428.6 / 2502.2 772.2 / 772.2
Output Total 1300 / 1330 260 / 260
Balance 1128.6 / 1172.2 512.2 / 512.2
SaO2 [CPAP] 100
SaO2 [SIMV] 100
SaO2 95
Nasal Cannula flow liters per 2
minute
Physical Exam
General: Comfortable
HEENT: Normocephalic and Anicteric
Cardiovascular: S1-S2, Rub and Peripheral Edema (negative)
Respiratory: Wheeze (negative), Crackles (negative), Rhonchi (negative), Non-Labored Respirations and Chest Tube (mediastinal chest tubes x2)
GI: Soft, Non Distended, Non Tender and Normal Bowel Sounds
Neurology: Awake and Alert
Skin: Warm and Dry
Labs/Micro/Reports
Lab Data
09/16/23 02:11
09/16/23 02:11
[2023-09-16 17:30] LABS: Glucose - Point of Care 117 mg/dl (70-99)
--- NOTE | 2023-09-16 17:34 | PTCARENOTE ---
Pt resting comfortably in bed with family at bedside; A paced on monitor and VSS; assessment unchanged.
--- NOTE | 2023-09-16 20:00 | PTCARENOTE ---
Addendum entered by Fauzia Luong RN 09/16/23 23:59:
Per CTPA Annabella Chicas - repeat bladder scan at midnight.
Original Note:
Pt received from mika SHAH. Walking rounds completed. Pt AAOx3. Pt resting in bed at this time. 100% A-paced on the monitor. Temporary epicardial pacemaker set to AAI 70/10. HR 70. BP 111/55. Bilateral radial and DP pulses palpable. No edema
noted. Pt on RA. POX 95%. Lungs diminished at the base. IS encouraged. Mediastinal Ct x2 to -20 suction, no air leak/tidaling/crepitus, and output within normal limits. BS hypoactive. Abdomen soft/nontender. Pt due to void. Assisted to bedside
commode @1920. Pt unable to void. Pt repositioned into bed. Pt then bladder scanned for 0 mL. No urge to void. CTPA Annabella Chicas aware. Re-scan patient in a couple hours. Right IJ cordis CDI w/ KVO infusing. Right forearm PIV CDI. Sternal
incision approximated and open to air. Surgical bra in place. See work-list for full nursing assessment and interventions. Call jacobs within reach.
[2023-09-16 21:48] LABS: Glucose - Point of Care 109 mg/dl (70-99)
[2023-09-17] VITALS (29 sets, daily range): BP systolic 84–129; BP diastolic 45–93; PULSE 82; O2SAT 91–94; BMI 22.5
--- NOTE | 2023-09-17 00:07 | PTCARENOTE ---
Pt reassessed. Pt 100% A-paced on the monitor. HR 70. BP 110/55. RA. POX 95%. Mediastinal CT x2 to -20 suction, no air-leak/tidaling/crepitus, and output within normal limits. Pt bladder scanned for 100 mL. No urge to void. KVO infusing. Pt resting
in bed at this time. Call jacobs within reach.
[2023-09-17] MEDS: TYLENOL 650 MG PO ×4 (03:41→20:29)
[2023-09-17 04:02] LABS: Hematocrit 30.4 % (37.0-47.0); Hemoglobin 10.7 g/dL (12.0-16.0); Mean Corp Hgb Conc. 35.2 g/dL (33.0-37.0); Mean Corpuscular Hgb 33.3 pg (27.0-31.0); Mean Corpuscular Volume 94.7 fL (81.0-99.0); Mean Platelet Volume 10.3 fL (7.4-10.4); Platelet Count 181 10^3/uL (130-400); Red Blood Cell Count 3.21 10^6/uL (4.20-5.40); Red Cell Dist. Width 13.2 % (11.5-14.5); White Blood Cell Count 14.6 10^3/uL (4.8-10.8)
[2023-09-17 04:23] LABS: Blood Urea Nitrogen 21 mg/dl (7-17); Calcium 8.9 mg/dl (8.4-10.2); Carbon Dioxide 25 mmol/L (22-30); Chloride 103 mmol/L (98-107); Estimated Creatinine Clearance 56 ml/min; Glucose 107 mg/dl (70-99); Potassium 4.7 mmol/L (3.5-5.1); Sodium 130 mmol/L (135-145); eGFR > 60.00
--- NOTE | 2023-09-17 04:30 | PTCARENOTE ---
Assessment unchanged. Pt 100% A-paced on the monitor. HR 70. BP stable. RA. POX 95%. Mediastinal CT x2 to -20 intact, to suction, no air-leak/tidaling/crepitus, and output within normal limits. Pt felt urge to void. Assisted to bedside commode and
then unable to void. Pt assisted back into bed. Pt bladder scanned for 161 mL. KVO infusing. Labs drawn and sent. EKG obtained w/ PA Annabella Chicas at the bedside. Call jacobs within reach.
[2023-09-17] MEDS: NSS 500 IV (04:34)
--- NOTE | 2023-09-17 05:22 | W.PN.CT ---
Today's Communication / Plan
-
-pod #2
-looks and feels better overall, no issues overnight
-a-paced @70bpm. Follow am ECG- underlying rhythm appears accelerated junctional low 60 at rest and low 70s with activity
-holding BB and Amio d/t junctional rhythm
-R pleur CT dcd
-[address] output 100/205 in 12/24 hrs (no further air leak noted with cough or breathing)
-bladder scans overnight with low volume (160cc at 4:30am)- follow
-continue ASA
-encourage IS, OOB
-appreciate everyone's input
Assessment / Plan
-
- Symptomatic Severe MR - s/p Radical mitral valve repair [30 mm band annuloplasty, closure of P1 P2 cleft and P2 P3 cleft, 2 pairs of CV 4 [place]-Joel to the posterior leaflet and 1 pair to the A2 segment of the anterior leaflet]; LAAE with 45mm clip
by Dr. Martinez on 09/15/23, pod #2
- Intraop DYLAN: LVEF preop was approximate 55% with no regional wma.� Following surgery EF did decline to approximately 40%, global hypokinesis without regional wall motion abnormalities. At the conclusion of the case, there is no residual mitral
valve insufficiency, no systolic anterior motion of the leaflets, and a mean gradient of 1 across the mitral valve.�Left atrial appendage was verified to be free of any thrombus or debris preoperatively.� Following surgery the appendage was totally
occlusive.� The base was quite wide and large and was difficult to place the clip completely flush due to the dimensions.
�
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
- PVCs
- Hypertension
- Former smoker of 1 pack/day for 35 years
- Raynaud's syndrome
- Osteoporosis
- Spinal stenosis
- Cataracts status post resection
- Acute on chronic diastolic congestive heart failure with EF of approximately 40% with global hypokinesis preoperatively
- Acute postop blood loss anemia
- Acute postop atelectasis
- Acute postop hypovolemia with subsequent hypervolemia
- Acute postop junctional rhythm - holding BB
- Acute postop hyponatremia
Discussed patient care with: Nursing and Care Team
Subjective
-
Date of Service: September 17, 2023
Objective Data
-
PT 19.3 Sec (11.4-14.6) H 09/15/23 10:42
INR 1.65 09/15/23 10:42
APTT 30.7 Sec (23.4-35.0) 09/15/23 10:42
Vital Signs
Vital Signs
Temp Pulse Resp BP Pulse Ox
97.5 F 70 16 110/55 95
09/16/23 23:48 09/17/23 00:00 09/16/23 23:48 09/16/23 23:48 09/16/23 23:48
CT Intake/Output/Weight
09/16/23 09/16/23 09/17/23
06:59 18:59 06:59
Intake Total 1325.7 / 2502.2 772.2 / 822.2 50 / 822.2
Output Total 435 / 1330 260 / 325 65 / 325
Balance 890.7 / 1172.2 512.2 / 497.2 -15 / 497.2
SaO2: 95
Physical Exam
-
General: Awake and AOx3
Cardiovascular: Regular rate & rhythm, No Murmurs and Rub
Respiratory: Decreased Breath Sounds
Sternum: Stable
Incision: Clean, Dry and Dressing Intact
Extremities: No Edema
Data Reviewed
-
Lab Results: Results Reviewed
Medications: Active Meds Reviewed
Chest X-Ray: Report Reviewed and Image Reviewed
ECG: Report Reviewed and Image Reviewed
[2023-09-17] MEDS: LASIX 40 MG IV (07:07)
--- NOTE | 2023-09-17 07:42 | W.PN.CD ---
Today's Communication / Plan
-
Increase activity
Diurese
Impression / Plan
-
Impression/Plan: 73 y/o female with myxomatous mitral valve leading to severe, degenerative mitral valve regurgitation and HFpEF (preop LVEF 60%) admitted for elective mitral valve repair.
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
-s/p Radical mitral valve repair (#30 mm band annuloplasty, closure of P1/P2 cleft and P2/P3 cleft, 2 pairs of CV 4 [place]-Joel to the posterior leaflet and 1 pair to the A2 segment of the anterior leaflet), 09/15/2023 (Dr. Martinez).
-S/P Left atrial appendage ligation (45 mm Atriclip).
-Dobutamine off
- Even though she appears euvolemic her wt is up >10 lbs vs preop so would diurese hoping to avoid AF
#LV dysfunction .
-Likely due to MR then drop with repair
-will use metoprolol succinate. Currently on metoprolol tartrate which can be converted to succinate at time of discharge
-EF by DYLAN was 50% preop, 40% postop. Preop LVEF 55% by TTE and 40% by cath preop.
- Would see what LVEF is in a month or two before committing to entresto - cost may be prohibitive and at current BP she will likely become hypotensive. If BP increases significantly we can start with a generic ACEI or ARB sooner.
#Accelerated Junctional Rhythm
-Resolved
Subjective/Interval History:
POD #2 from MV repair.
Remains on 2LNC.
DATA:
Intraop DYLAN, 09/15/23:
�CONCLUSIONS
Preop
Overall LVEF is approximately 50-55% with no RWMA.
�Mildly dilated left atrium.
�Mildly dilated right atrium.
�Mild tricuspid regurgitation.
�Dilated coronary sinus.
�Moderate to severe mitral regurgitation.
�MV annulus is dilated with minimal calcification.
�MR etiology is from PMV leaflet prolapse (P2).
�Mild aortic insufficiency.
�Mild sessile atheroma seen in the descending aorta and distal arch.
POST OPERATIVE FINDINGS
�The patient underwent a MV repair with a size 30 Annuloplasty band, [place]-chords,
�and ligation of the LA appendage.� Postop rhythm remains sinus.� RV function
�remains normal.� Overall LVEF is now approximately 40% with mild global
�hypokinesis.� No significant MR noted.� No perivalvular leaks are noted.� No
�systolic anterior motion of the AMV leaflet noted.� There is no turbulent flow
�in the LVOT.� Mild TR.� PV appears normal.� Mild AI is unchanged (perhaps less
�than preop level).� The LA appendage is clipped.� Just a small area of the
�dilated LA appendage base is left.� No color Doppler flow seen past the clip.�
�Aortic scan is unchanged.
DYLAN, 09/08/2023:
CONCLUSIONS
�Normal left ventricular systolic function. Left ventricular ejection fraction
�is 60%.
�
�Severe mitral regurgitation. Prolapse of the posterior mitral leaflet was
�present.
�
�Mild aortic regurgitation.
Cardiac Catheterization, 08/11/2023:
CORONARY ANGIOGRAPHY
Dominance: Right
Left Main: Normal
LAD: Normal
Circumflex: Normal
RCA: Normal
Physical Exam
Vital Signs/Labs
Vital Signs
Temp Pulse Resp BP Pulse Ox
97.8 F 80 16 111/59 96
09/17/23 03:59 09/17/23 04:00 09/17/23 03:59 09/17/23 03:59 09/17/23 03:59
09/16/23 09/17/23 09/18/23
06:59 06:59 06:59
Actual Weight 128 lb 1.417 oz 130 lb 15.273 oz
09/17/23 03:51
09/17/23 03:51
PT 19.3 Sec (11.4-14.6) H 09/15/23 10:42
INR 1.65 09/15/23 10:42
APTT 30.7 Sec (23.4-35.0) 09/15/23 10:42
Magnesium 2.7 mg/dl (1.6-2.3) H 09/16/23 02:11
Physical Exam
Constitutional: No acute distress and Comfortable
Cardiovascular: Rhythm & rate is regular, S1S2 is normal and Murmur/rub/gallop absent
Respiratory: Respiratory effort normal, Lungs clear to auscul. and Wheeze Absent
GI: Flat and Non tender
Neuro/Psych: Motor deficits absent
Data Reviewed
-
Date of Service: September 17, 2023
[2023-09-17 07:49] LABS: Glucose - Point of Care 134 mg/dl (70-99)
--- NOTE | 2023-09-17 08:19 | PTCARENOTE ---
Pt received from change of shift, pt oob in a chair, POD [address] x2, IV lasix stat for decreased u/o since li dced yesterday, vss, ra, Apaced, junctional rhythm. rt Ij kiesha, DWAINO.
[2023-09-17] MEDS: LOW STRENGTH ASPIRIN 81 MG PO (08:45)
[2023-09-17] MEDS: FLEXERIL 5 MG PO ×3 (08:45→20:28)
[2023-09-17] MEDS: BACTROBAN 2% OINTMENT 1 APPLIC NASAL ×2 (08:45→20:29)
[2023-09-17] MEDS: MAGNESIUM OXIDE 500 MG PO ×2 (08:45→20:29)
[2023-09-17] MEDS: PROTONIX 40 MG PO (08:45)
[2023-09-17] MEDS: VITAMIN C 500 MG PO (08:45)
[2023-09-17] MEDS: NEURONTIN 100 MG PO ×3 (08:45→20:29)
[2023-09-17] MEDS: SENOKOT-S 1 TABLET PO ×2 (08:45→20:29)
[2023-09-17] MEDS: KCL 20 MEQ PO (08:45)
[2023-09-17] MEDS: LIDOCAINE 4% PATCH TOPICAL (08:46)
[2023-09-17] MEDS: PEPCID IV (09:22)
[2023-09-17] MEDS: NSS (PRESERVATIVE FREE) IV (09:22)
--- NOTE | 2023-09-17 09:26 | PTCARENOTE ---
Pt voided @ 0900 for 300ml in toliet, MS CT dced, post xray completed. VSS.
--- NOTE | 2023-09-17 11:53 | PTCARENOTE ---
Pt went in to Afib rates 120-180- Dr Martinez and Hiral BIANCHI notified, will start patient on Amio. Pt BP stable, 120/85, no c/o cp, palpitation or SOB.
[2023-09-17] MEDS: LOPRESSOR 5 MG IV (12:17)
[2023-09-17] MEDS: TYLENOL PO (12:18)
[2023-09-17] MEDS: CORDARONE 103 MG IV ×2 (12:30→15:46)
[2023-09-17] MEDS: CORDARONE 518 MG IV (12:31)
[2023-09-17] MEDS: LOPRESSOR 2.5 MG IV ×2 (13:13→16:54)
[2023-09-17] MEDS: FERRLECIT 110 MG IV (13:14)
--- NOTE | 2023-09-17 14:54 | CM ---
Reviewed chart. Met with Ms. Don to review discharge plans. She states she is feeling okay just tired. She states she ambulated today. She states prior to admission she resides with her significant other in a spilt level home. She states she
has on step to enter She has two steps to get to the living area and eleven steps to get to bedroom/full bathroom. She states prior to admission she was independent with ambulation and adls. She states she does not have any DME in the home. She
states her significant other will be home to assist in her care if needed. We reviewed a home visit by the Cardiothoracic Transitional Care Nurse. She is agreeable to a home visit. Medical work-up in progress The discharge plan is to return home
with her significant other and a home visit by the Cardiothoracic Transitional Care Nurse.
--- NOTE | 2023-09-17 15:16 | PTCARENOTE ---
pt reassessment unchanged from previous, remains in afib 90's-110's, RA, no c/o cp, sob. Rt IJ cordis, amio gtt @ loading dose.
[2023-09-17] MEDS: LASIX 20 MG IV (17:30)
[2023-09-17] MEDS: LOPRESSOR 12.5 MG PO (18:13)
--- NOTE | 2023-09-17 20:00 | PTCARENOTE ---
PT AAOx4 afib on monitor VSS, ambulating to bathroom, amio GTT running. see worklist for detailed assessment
[2023-09-18] VITALS (32 sets, daily range): BP systolic 86–150; BP diastolic 43–139; PULSE 147; O2SAT 90–92; BMI 22.2
--- NOTE | 2023-09-18 | PTCARENOTE ---
no change from previous assessment
[2023-09-18] MEDS: TYLENOL PO ×2 (01:25→06:29)
[2023-09-18] MEDS: LOPRESSOR 2.5 MG IV ×3 (01:29→14:53)
--- NOTE | 2023-09-18 04:00 | PTCARENOTE ---
no change from previous assessment
[2023-09-18 04:02] LABS: Hematocrit 29.3 % (37.0-47.0); Hemoglobin 10.3 g/dL (12.0-16.0); Mean Corp Hgb Conc. 35.2 g/dL (33.0-37.0); Mean Corpuscular Hgb 32.6 pg (27.0-31.0); Mean Corpuscular Volume 92.7 fL (81.0-99.0); Mean Platelet Volume 10.5 fL (7.4-10.4); Platelet Count 195 10^3/uL (130-400); Red Blood Cell Count 3.16 10^6/uL (4.20-5.40); White Blood Cell Count 11.4 10^3/uL (4.8-10.8)
[2023-09-18 04:29] LABS: Blood Urea Nitrogen 18 mg/dl (7-17); Calcium 8.3 mg/dl (8.4-10.2); Carbon Dioxide 26 mmol/L (22-30); Chloride 96 mmol/L (98-107); Estimated Creatinine Clearance 74 ml/min; Glucose 126 mg/dl (70-99); Magnesium 2.1 mg/dl (1.6-2.3); Potassium 4.1 mmol/L (3.5-5.1); Sodium 128 mmol/L (135-145); eGFR > 60.00
--- NOTE | 2023-09-18 05:17 | W.PN.CT ---
Today's Communication / Plan
-
-pod #3
-remained in a-fib with RVR 110s-130s overnight- denies any sxs, ambulates to the bathroom without difficulty
- gave another 2.5 mg iv Lopressor x2 and 12.5 mg po Lopressor early this am (s/p multiple iv Lopressor and 2 Amio boluses earlier). Drips: Amio 0.5 (renewed)
-started on Lopressor 12.5 mg bid on 09/17 (accelerated junctional rhythm prior to a-fib).
-diuresed with 40 and 20 iv Lasix on 09/17 (UO 650+)- continue diuresis (wt is up 15 lbs from preop)
-Na trending down - 128 today
-maintain Cordis and pw
-encourage IS, OOB
- discussed with Dr Martinez - will start iv Heparin (no bolus), po Amio 400 tid and diurese with Lasix 40 iv bid
Assessment / Plan
-
- Symptomatic Severe MR - s/p Radical mitral valve repair [30 mm band annuloplasty, closure of P1 P2 cleft and P2 P3 cleft, 2 pairs of CV 4 [place]-Joel to the posterior leaflet and 1 pair to the A2 segment of the anterior leaflet]; LAAE with 45mm clip
by Dr. Martinez on 09/15/23, pod #3
- Intraop DYLAN: LVEF preop was approximate 55% with no regional wma.� Following surgery EF did decline to approximately 40%, global hypokinesis without regional wall motion abnormalities. At the conclusion of the case, there is no residual mitral
valve insufficiency, no systolic anterior motion of the leaflets, and a mean gradient of 1 across the mitral valve.�Left atrial appendage was verified to be free of any thrombus or debris preoperatively.� Following surgery the appendage was totally
occlusive.� The base was quite wide and large and was difficult to place the clip completely flush due to the dimensions.
�
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
- PVCs
- Hypertension
- Former smoker of 1 pack/day for 35 years
- Raynaud's syndrome
- Osteoporosis
- Spinal stenosis
- Cataracts status post resection
- Acute on chronic diastolic congestive heart failure with EF of approximately 40% with global hypokinesis preoperatively
- Acute postop blood loss anemia
- Acute postop atelectasis
- Acute postop hypovolemia with subsequent hypervolemia
- Acute postop junctional rhythm - holding BB, restarted on 09/17 for rapid a-fib
- Acute postop hyponatremia
- Acute postop paroxysmal a-fib 150s on 09/17/23 - tx with multiple iv Lopressor doses, Amio bolus x2 and drip
Discussed patient care with: Nursing and Care Team
Subjective
-
Date of Service: September 18, 2023
Objective Data
-
PT 19.3 Sec (11.4-14.6) H 09/15/23 10:42
INR 1.65 09/15/23 10:42
APTT 30.7 Sec (23.4-35.0) 09/15/23 10:42
Vital Signs
Vital Signs
Temp Pulse Resp BP Pulse Ox
98.2 F 127 18 129/81 92
09/17/23 15:09 09/18/23 01:29 09/17/23 15:09 09/17/23 22:00 09/17/23 15:09
CT Intake/Output/Weight
09/17/23 09/17/23 09/18/23
06:59 18:59 06:59
Intake Total 90 / 862.2 140 / 140
Output Total 100 / 360 670 / 670
Balance -10 502.2 -530 / -530
SaO2: 92
Physical Exam
-
General: Awake and AOx3
Cardiovascular: Regular rate & rhythm, No Murmurs and Rub
Respiratory: Decreased Breath Sounds
Sternum: Stable
Incision: Clean, Dry and Dressing Intact
Extremities: No Edema
Data Reviewed
-
Lab Results: Results Reviewed
Medications: Active Meds Reviewed
Chest X-Ray: Report Reviewed and Image Reviewed
ECG: Report Reviewed and Image Reviewed
[2023-09-18] MEDS: LOPRESSOR 12.5 MG PO (05:33)
[2023-09-18] MEDS: LASIX 40 MG IV ×2 (06:29→13:53)
[2023-09-18] MEDS: HEPARIN 25000 UNITS/250 ML IV (06:30)
[2023-09-18 06:38] LABS: APTT 36.4 Sec (23.4-35.0)
[2023-09-18] MEDS: PACERONE 400 MG PO ×2 (06:53→16:45)
--- NOTE | 2023-09-18 06:53 | PTCARENOTE ---
PT started on heparin GTT, amio 400mg po given
--- NOTE | 2023-09-18 08:15 | PTCARENOTE ---
Assumed care of patient. Walking rounds completed with previous RN. Pt assessed while she was sitting in the chair. Pt alert and oriented x4. Pt denies pain, shortness of breath, and nausea. REYES with equal strength throughout. Afib on tele with
rates in the 140s. BP stable 102/66. Heart tones irregular. Bilateral radial and DP pulses palpable. +1 generalized edema. Epicardial AV wires set to AAI 70/0.1. POX 93% on RA. Lungs diminished in the bases. IS encouraged-1000mL achieved. No cough
noted. Abdomen soft, nontender. +BS. Pt reports BM and refuses stool softner. Pt voiding in the toilet, reports no issues. Tolerating diet. Sternal incision approximated and skin glue intact-SENSITOMETRIST. Old chest tube sites covered, dressing CDI. Right IJ
cordis intact infusing amio @ 0.5mg/min and NSS KVO. Right forearm 18g PIV intact infusing heparin at 700units/hour. See MAR for medication administration. See worklist for complete nursing assessment. Plan of care reviewed and patient in agreement.
[2023-09-18] MEDS: BACTROBAN 2% OINTMENT 1 APPLIC NASAL ×2 (08:31→20:02)
[2023-09-18] MEDS: LIDOCAINE 4% PATCH 1 PATCH TOPICAL (08:31)
[2023-09-18] MEDS: FLUSH (NSS) 1 FLUSH IV (08:32)
[2023-09-18] MEDS: FLEXBUMIN 100 IV ×3 (08:32→23:51)
[2023-09-18] MEDS: VITAMIN C 500 MG PO (08:33)
[2023-09-18] MEDS: NEURONTIN 100 MG PO ×3 (08:33→22:12)
[2023-09-18] MEDS: PROTONIX 40 MG PO (08:33)
[2023-09-18] MEDS: PACERONE PO (08:33)
[2023-09-18] MEDS: LOW STRENGTH ASPIRIN 81 MG PO (08:33)
[2023-09-18] MEDS: FLEXERIL 5 MG PO ×3 (08:33→22:11)
[2023-09-18] MEDS: KCL 20 MEQ PO ×2 (08:33→20:03)
[2023-09-18] MEDS: TYLENOL 650 MG PO (08:33)
[2023-09-18] MEDS: SENOKOT-S PO (08:34)
[2023-09-18] MEDS: MAGNESIUM OXIDE 500 MG PO ×2 (08:44→20:02)
--- NOTE | 2023-09-18 09:08 | W.PN.CD ---
Addendum entered and electronically signed by Coleman Melendrez MD 09/18/23 14:05:
Seen/ examined
Post MV repair with AF
Will benefit from OAT x 6 mo postop and possibly longer if PAF persisits after the postoperative recovery phase
Original Note:
Today's Communication / Plan
-
continue IV Amiodarone, PO Amiodarone, Lopressor and IV Heparin.
continue diuresis as BP allows.
Impression / Plan
-
Mrs. 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
- s/p Radical mitral valve repair (#30 mm band annuloplasty, closure of P1/P2 cleft and P2/P3 cleft, 2 pairs of CV 4 [place]-Joel to the posterior leaflet and 1 pair to the A2
segment of the anterior leaflet), 09/15/2023 (Dr. Martinez).
- s/p Left atrial appendage ligation (45 mm Atriclip).
- her weight is up >10 lbs vs preop weight, continue IV Lasix.
Afib - rapid ventricular response.
- IV Amiodarone drip on since yesterday 09/17/23 at noon.
- PO Amiodarone added today.
- she is unaware of irregular rapid rhythm, denies palpitations.
- continue Lopressor.
- IV Heparin drip, continue.
- [id number] VASc score is 3 (age, female, HTN).
- s/p LAAE clip 09/15/23.
LV dysfunction - likely due to MR then drop with repair
- will use metoprolol succinate. Currently on metoprolol tartrate which can be converted to succinate at time of discharge
- EF by DYLAN was 50% preop, 40% postop. Preop LVEF 55% by TTE and 40% by cath preop.
- assess LVEF is in a month or two before committing to GDMT (Entresto - cost may be prohibitive and currently with soft BP).
- GDMT is limited currently by soft BP and requiring rate control meds for rapid Afib.
Accelerated junctional rhythm - resolved.
Subjective/Interval History:
feeling mildly sob with talking this am.
denies palpitations or chest pain.
DATA:
Intraop DYLAN, 09/15/23:
�CONCLUSIONS
Preop
Overall LVEF is approximately 50-55% with no RWMA.
�Mildly dilated left atrium.
�Mildly dilated right atrium.
�Mild tricuspid regurgitation.
�Dilated coronary sinus.
�Moderate to severe mitral regurgitation.
�MV annulus is dilated with minimal calcification.
�MR etiology is from PMV leaflet prolapse (P2).
�Mild aortic insufficiency.
�Mild sessile atheroma seen in the descending aorta and distal arch.
POST OPERATIVE FINDINGS
�The patient underwent a MV repair with a size 30 Annuloplasty band, [place]-chords,
�and ligation of the LA appendage.� Postop rhythm remains sinus.� RV function
�remains normal.� Overall LVEF is now approximately 40% with mild global
�hypokinesis.� No significant MR noted.� No perivalvular leaks are noted.� No
�systolic anterior motion of the AMV leaflet noted.� There is no turbulent flow
�in the LVOT.� Mild TR.� PV appears normal.� Mild AI is unchanged (perhaps less
�than preop level).� The LA appendage is clipped.� Just a small area of the
�dilated LA appendage base is left.� No color Doppler flow seen past the clip.�
�Aortic scan is unchanged.
DYLAN, 09/08/2023:
CONCLUSIONS
�Normal left ventricular systolic function. Left ventricular ejection fraction
�is 60%. Severe mitral regurgitation. Prolapse of the posterior mitral leaflet was
�present. Mild aortic regurgitation.
Cardiac Catheterization, 08/11/2023:
CORONARY ANGIOGRAPHY
Dominance: Right
Left Main: Normal
LAD: Normal
Circumflex: Normal
RCA: Normal
Physical Exam
Vital Signs/Labs
Vital Signs
Temp Pulse Resp BP Pulse Ox
98.0 F 131 16 102/66 93
09/18/23 08:00 09/18/23 08:27 09/18/23 08:00 09/18/23 08:27 09/18/23 08:00
09/17/23 09/18/23 09/19/23
06:59 06:59 06:59
Actual Weight 59.4 kg 58.5 kg
09/18/23 03:39
09/18/23 03:39
PT 19.3 Sec (11.4-14.6) H 09/15/23 10:42
INR 1.65 09/15/23 10:42
APTT 36.4 Sec (23.4-35.0) H 09/18/23 06:18
Magnesium 2.1 mg/dl (1.6-2.3) 09/18/23 03:39
Physical Exam
Constitutional: No acute distress
EENT: Anicteric and Moist mucous membranes
Cardiovascular: Rhythm/rate is irregular (tachycardia)
Respiratory: Respiratory effort normal
GI: Soft, Non tender and Normal bowel sounds
Neuro/Psych: AO x 3
Other: Skin (warm, dry)
Data Reviewed
-
Date of Service: September 18, 2023
Medical Decision Making: Reviewed Test Results
EKG: Tracing Personally Visualized and interpreted
Echo: Report Reviewed by me
Labs: Labs Reviewed by me
Old Records: Reviewed
--- NOTE | 2023-09-18 09:14 | CM ---
Reviewed chart. Met with Mr. Don to review discharge plans. She states she is feeling well but her heart rate is still fast. She states her significant other will be home to assist in her care if needed. We reviewed a home visit by the
Cardiothoracic Transitional Care Nurse. She is agreeable to a hoe visit. Prior to admission she resides with her significant other in spilt level home with one step to enter. She has two steps to get to the living area and eleven steps to get to
bedroom/full bathroom. Prior to admission she was independent with ambulation and adls She does not have any DME in the home. Medical work-up in progress. The discharge plan is to return home with her significant other and a home visit by the
Cardiothoracic Transitional Care Nurse when medically stable.
--- NOTE | 2023-09-18 12:30 | PTCARENOTE ---
Pt reassessed. Afib on tele with rates in the 130s. BP 88/64. Pt denies dizziness, but states she is tired. POX 88% on RA, 2L applied POX 95%. Chest tube dressing changed. PTT obtained. Pt resting in bed at this time. No other acute changes from
previous assessment.
[2023-09-18] MEDS: NSS IV (12:37)
[2023-09-18 12:49] LABS: APTT 108.7 Sec (23.4-35.0)
[2023-09-18] MEDS: FERRLECIT 110 MG IV (13:53)
[2023-09-18] MEDS: CORDARONE 518 MG IV (14:54)
--- NOTE | 2023-09-18 15:19 | PTCARENOTE ---
Pt converted to junctional rhythm. Pt doesn't feel any differently than when she was in afib. EKG obtained. CT SCAFFOLDING HELPER notified. Carlitos vaughan on standby per CT SCAFFOLDING HELPER.
--- NOTE | 2023-09-18 17:00 | PTCARENOTE ---
Pt reassessed. VSS. Junctional rhythm with rates high 50s-low 60s. Bp stable 113/60. POX 95% on 2L. Surgical sites stable. Pt resting in bed.
[2023-09-18] MEDS: SENOKOT-S 1 TABLET PO (20:02)
--- NOTE | 2023-09-18 20:15 | PTCARENOTE ---
Addendum entered by Rosa Mcpherson RN 09/18/23 22:05:
pt in junctional rhythm on tele-monitor.
Original Note:
assumed care of pt from previous RN. pt A&Ox4. pt ambulated in [place] w/ RN. SR on tele-monitor. HR 70s. temp epicardial A/V wires, pacer off. palpable peripheral pulses. non-pitting BLLE edema noted. 2 L NC. IS encouraged. abd s/n, +BS. no c/o N/V.
pt voiding on toilet. sternal incision approximated w/ surgi-glue, JAJA. R IJ cordis w/ KVO. PIV intact. Heparin gtt infusing per order. see worklist for complete nursing assessment, interventions, VS, and I&Os.
[2023-09-19] VITALS (11 sets, daily range): BP systolic 109–133; BP diastolic 50–89; PULSE 82; O2SAT 96–98; BMI 22.6
--- NOTE | 2023-09-19 00:12 | PTCARENOTE ---
assessment remains unchanged. junctional rhythm on tele-monitor. HR 70s. POX 95-97% on 2 L NC. BP 112/55. no c/o pain at this time.
[2023-09-19 02:17] LABS: Hematocrit 24.9 % (37.0-47.0); Mean Corp Hgb Conc. 36.1 g/dL (33.0-37.0); Mean Corpuscular Hgb 32.7 pg (27.0-31.0); Mean Corpuscular Volume 90.5 fL (81.0-99.0); Platelet Count 187 10^3/uL (130-400); Red Blood Cell Count 2.75 10^6/uL (4.20-5.40); Red Cell Dist. Width 12.9 % (11.5-14.5); White Blood Cell Count 6.5 10^3/uL (4.8-10.8)
[2023-09-19 02:30] LABS: APTT 65.5 Sec (23.4-35.0)
[2023-09-19 02:34] LABS: Blood Urea Nitrogen 15 mg/dl (7-17); Calcium 8.6 mg/dl (8.4-10.2); Carbon Dioxide 28 mmol/L (22-30); Chloride 96 mmol/L (98-107); Estimated Creatinine Clearance 74 ml/min; Glucose 115 mg/dl (70-99); Potassium 3.8 mmol/L (3.5-5.1); Sodium 133 mmol/L (135-145); eGFR > 60.00
--- NOTE | 2023-09-19 04:13 | W.PN.CT ---
Today's Communication / Plan
-
Plan:
-No major issues overnight. Hemodynamically and neurologically intact
-No further a-fib with RVR since ~ 3pm yesterday 09/18. Remains on Heparin gtt
-Converted back to accelerated jxn in the 's, Amiodarone and BB held per Cardiology
-Receiving diuresis for hyponatremia, 133 today, was 128 yesterday. Cont. fluid restriction
-Also noted to have b/l pleural effusion, cont. diuresis
-Replete electrolytes
-Holding off Eliquis for now given pericardial effusion per echo yesterday 09/18. Dr Martinez discussed mild-moderate pericardial effusion per echo 09/18 with Cardiology
-Eventual plan to repeat echo Thursday vs Thursday
-D/C cordis
-Encourage use of IS
-Wean off of O2
-OOB into chair/Ambulate
-Maintain temporary A/V wires (will cut before d/c home)
-Home likely Thursday
Assessment / Plan
-
- Symptomatic Severe MR - s/p Radical mitral valve repair [30 mm band annuloplasty, closure of P1 P2 cleft and P2 P3 cleft, 2 pairs of CV 4 [place]-Joel to the posterior leaflet and 1 pair to the A2 segment of the anterior leaflet]; LAAE with 45mm clip
by Dr. Martinez on 09/15/23, pod #4
- Intraop DYLAN: LVEF preop was approximate 55% with no regional wma.� Following surgery EF did decline to approximately 40%, global hypokinesis without regional wall motion abnormalities. At the conclusion of the case, there is no residual mitral
valve insufficiency, no systolic anterior motion of the leaflets, and a mean gradient of 1 across the mitral valve.�Left atrial appendage was verified to be free of any thrombus or debris preoperatively.� Following surgery the appendage was totally
occlusive.� The base was quite wide and large and was difficult to place the clip completely flush due to the dimensions.
�
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
- PVCs
- Hypertension
- Former smoker of 1 pack/day for 35 years
- Raynaud's syndrome
- Osteoporosis
- Spinal stenosis
- Cataracts status post resection
- Acute on chronic diastolic congestive heart failure with EF of approximately 40% with global hypokinesis preoperatively
- Acute postop blood loss anemia
- Acute postop atelectasis/pleural effusion
- Acute postop pulmonary insufficiency
- Acute postop hypovolemia with subsequent hypervolemia
- Acute postop junctional rhythm - holding BB, restarted on 09/17 for rapid a-fib
- Acute postop hyponatremia
- Acute postop paroxysmal a-fib 150s on 09/17/23 - tx with multiple iv Lopressor doses, Amio bolus x2 and drip
- Acute postop small-moderate pericardial effusion (along lateral wall) per echo 09/18
Discussed patient care with: Cardiology, Nursing, Respiratory Therapy, Pharmacy and Care Team
Subjective
Procedure
s/p Radical mitral valve repair [30 mm band annuloplasty, closure of P1 P2 cleft and P2 P3 cleft, 2 pairs of CV 4 [place]Joel to the posterior leaflet and 1 pair to the A2 segment of the anterior leaflet]; LAAE with 45mm clip by Dr. Martinez on 09/15/23
-
Date of Service: September 19, 2023
Pt c/o mild incisional pain and cough, otherwise feels well. Ambulating hallway without difficulty, has had a BM
Objective Data
-
Lab Results
09/19/23 02:10
09/19/23 02:10
PT 19.3 Sec (11.4-14.6) H 09/15/23 10:42
INR 1.65 09/15/23 10:42
APTT 65.5 Sec (23.4-35.0) H 09/19/23 02:10
Vital Signs
Vital Signs
Temp Pulse Resp BP Pulse Ox
98.2 F 77 18 112/55 97
09/19/23 00:00 09/19/23 03:00 09/19/23 00:00 09/18/23 23:56 09/19/23 00:16
CT Intake/Output/Weight
09/18/23 09/18/23 09/19/23
06:59 18:59 06:59
Intake Total 743.9 / 788.9 45 / 788.9
Balance 743.9 / 788.9 45 / 788.9
SaO2: 97 (2L)
Physical Exam
-
General: Awake, Oriented and AOx3
Cardiovascular: Regular rate & rhythm, No Murmurs, No Rub and No Gallop
Respiratory: Decreased Breath Sounds (at right base, rhonchi @ left base)
Sternum: Stable
Incision: Clean, Dry, Intact and Dressing Intact
Extremities: Other (+trace edema)
Data Reviewed
-
Lab Results: Results Reviewed
Medications: Active Meds Reviewed
Chest X-Ray: Report Reviewed and Image Reviewed
ECG: Report Reviewed and Image Reviewed
--- NOTE | 2023-09-19 07:30 | PTCARENOTE ---
Resumed care of patient. Pt assessed while she was sitting in the chair. Pt alert and oriented x4. REYES with equal strength throughout. Standby assist to ambulate in the room. Rates sternal pain 1/10, denies nausea, and shortness of breath.
Junctional rhythm with PACs on tele with rates in the 70s. BP stable 123/50. Bilateral radial and DP pulses palpable. Trace edema noted. Epicardial AV wires to temp pacer box, turned off. POX 88% on RA, 2L NC POX 95%. Diminished in bilateral bases.
IS encouraged-750mL achieved. Occasional nonproductive cough noted. Abdomen soft, nontender. +BS. Pt denies issues with voiding. Sternal incision approximated and closed with skin glue, JAJA. Old chest tube dressing CDI. Right IJ cordis intact
infusing NSS KVO. Right forearm PIV intact infusing heparin gtt at 600units/hour. See MAR for medication administration. See worklist for complete nursing assessment. Plan of care reviewed and patient in agreement.
[2023-09-19] MEDS: LIDOCAINE 4% PATCH 1 PATCH TOPICAL (07:41)
[2023-09-19] MEDS: FLUSH (NSS) 1 FLUSH IV (07:42)
[2023-09-19] MEDS: FLEXERIL 5 MG PO ×3 (07:42→21:07)
[2023-09-19] MEDS: NEURONTIN 100 MG PO ×3 (07:42→21:07)
[2023-09-19] MEDS: MAGNESIUM OXIDE 500 MG PO (07:42)
[2023-09-19] MEDS: TYLENOL 650 MG PO (07:42)
[2023-09-19] MEDS: VITAMIN C 500 MG PO (07:42)
[2023-09-19] MEDS: PROTONIX 40 MG PO (07:42)
[2023-09-19] MEDS: BACTROBAN 2% OINTMENT 1 APPLIC NASAL (07:43)
[2023-09-19] MEDS: SENOKOT-S PO (07:43)
[2023-09-19] MEDS: NSS 500 IV (09:18)
[2023-09-19] MEDS: LASIX 40 MG IV ×2 (09:19→16:03)
[2023-09-19] MEDS: KCL 20 MEQ PO ×3 (09:19→21:07)
--- NOTE | 2023-09-19 09:24 | W.PN.CD ---
Today's Communication / Plan
-
continue to hold bb/amio
would continue hep gtt
would favor tte thursday to reassess effusion
Impression / Plan
-
Mrs. 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
- s/p Radical mitral valve repair (#30 mm band annuloplasty, closure of P1/P2 cleft and P2/P3 cleft, 2 pairs of CV 4 [place]-Joel to the posterior leaflet and 1 pair to the A2
segment of the anterior leaflet), 09/15/2023 (Dr. Martinez).
- s/p Left atrial appendage ligation (45 mm Atriclip).
- her weight is still up >10 lbs vs preop weight(52.3kg), continue IV Lasix.
Afib - rapid ventricular response.
- out of rhythm but resolved into junction, holding amio and bb
- IV Heparin drip, continue, would hold off on starting DOAC until repeat echo obtained.
- [id number] VASc score is 3 (age, female, HTN).
- s/p LAAE clip 09/15/23.
LV dysfunction - likely due to MR then drop with repair
- will use metoprolol succinate. Currently on metoprolol tartrate which can be converted to succinate at time of discharge
- EF by DYLAN was 50% preop, 40% postop. Preop LVEF 55% by TTE and 40% by cath preop.
-TTE 09/18/23 EF recovered to 55-60%
- GDMT is limited currently by soft BP, slow heart rhythm and requiring rate control meds for rapid Afib.
Accelerated junctional rhythm - returned 09/18 after AF resolved
-holding bb and amiodarone
-now ectopic atrial rhythm on ECG, Tele with junction and intermittent sinus beats.
Pericardial effuison:
-small to moderate without HD signficance on Echo
-cautiously remains on hep gtt
-repeat echo planned Thursday
Subjective/Interval History:
feeling mildly sob with walking, but better
DATA:
TTE 09/18/23:
CONCLUSIONS
�Technically difficult study with fair image quality.
�Overall left ventricular function appears normal.� Estimated ejection fraction
�55 to 60%
�Wall motion analysis is limited due to image quality.
�Mitral valve is postrepair.� No� mitral regurgitation detected
�Mild aortic regurgitation.
�Small to moderate pericardial effusion mostly seen along the lateral wall.
�Compared to the postoperative DYLAN report, a pericardial effusion is now seen.
Intraop DYLAN, 09/15/23:
�CONCLUSIONS
Preop
Overall LVEF is approximately 50-55% with no RWMA.
�Mildly dilated left atrium.
�Mildly dilated right atrium.
�Mild tricuspid regurgitation.
�Dilated coronary sinus.
�Moderate to severe mitral regurgitation.
�MV annulus is dilated with minimal calcification.
�MR etiology is from PMV leaflet prolapse (P2).
�Mild aortic insufficiency.
�Mild sessile atheroma seen in the descending aorta and distal arch.
POST OPERATIVE FINDINGS
�The patient underwent a MV repair with a size 30 Annuloplasty band, [place]-chords,
�and ligation of the LA appendage.� Postop rhythm remains sinus.� RV function
�remains normal.� Overall LVEF is now approximately 40% with mild global
�hypokinesis.� No significant MR noted.� No perivalvular leaks are noted.� No
�systolic anterior motion of the AMV leaflet noted.� There is no turbulent flow
�in the LVOT.� Mild TR.� PV appears normal.� Mild AI is unchanged (perhaps less
�than preop level).� The LA appendage is clipped.� Just a small area of the
�dilated LA appendage base is left.� No color Doppler flow seen past the clip.�
�Aortic scan is unchanged.
DYLAN, 09/08/2023:
CONCLUSIONS
�Normal left ventricular systolic function. Left ventricular ejection fraction
�is 60%. Severe mitral regurgitation. Prolapse of the posterior mitral leaflet was
�present. Mild aortic regurgitation.
Cardiac Catheterization, 08/11/2023:
CORONARY ANGIOGRAPHY
Dominance: Right
Left Main: Normal
LAD: Normal
Circumflex: Normal
RCA: Normal
Physical Exam
Vital Signs/Labs
Vital Signs
Temp Pulse Resp BP Pulse Ox
98.8 F 83 16 109/88 94
09/19/23 07:30 09/19/23 08:46 09/19/23 07:30 09/19/23 08:46 09/19/23 07:30
09/18/23 09/19/23 09/20/23
06:59 06:59 06:59
Actual Weight 58.5 kg 59.6 kg
09/19/23 02:10
09/19/23 02:10
PT 19.3 Sec (11.4-14.6) H 09/15/23 10:42
INR 1.65 09/15/23 10:42
APTT 65.5 Sec (23.4-35.0) H 09/19/23 02:10
Magnesium 2.1 mg/dl (1.6-2.3) 09/18/23 03:39
Physical Exam
Constitutional: No acute distress
Cardiovascular: Rhythm & rate is regular, Pedal edema is absent, JVD pressure is normal, Systolic murmur absent and Diastolic murmur absent
Respiratory: Respiratory effort normal, Lungs clear to auscul., Wheeze Absent, Crackles Absent and Rhonchi Absent
Neuro/Psych: AO x 3
Data Reviewed
-
Date of Service: September 19, 2023
EKG: Tracing Personally Visualized and interpreted (ectopic atrial prwp ns twave, compaired to 09/18/23 ectopic atrial rhythm has replace junctional rhythm)
Echo: Report Reviewed by me (see note, recovered ef, small to mod pericardial effusion)
X-Ray/CT/US/MRI/NUC/PET: Discussed with Nurse (continue hep gtt until echo)
[2023-09-19 09:41] LABS: APTT 57.3 Sec (23.4-35.0)
--- NOTE | 2023-09-19 12:00 | PTCARENOTE ---
Pt reassessed. Accelerated Junctional with PACs on tele with rates in the 70s. BP stable 126/69. POX 95% on 2L NC. Epicardial AV wires insulated. Pt voiding in the bathroom. +diarrhea, CT PA notified. Remains on heparin gtt at 800units/hour.
[2023-09-19] MEDS: HEPARIN 25000 UNITS/250 ML IV (16:03)
--- NOTE | 2023-09-19 16:15 | PTCARENOTE ---
Pt reassessed. VSS. Accelerated Junctional with PACs with rates in the 70s-80s. BP stable 127/57. POX 92% on RA. Surgical sites stable. Heparin continues to infuse at 800units/hour.
[2023-09-19 16:27] LABS: APTT 53.5 Sec (23.4-35.0)
[2023-09-19] MEDS: FEOSOL 325 MG PO (19:44)
--- NOTE | 2023-09-19 20:00 | PTCARENOTE ---
assumed care of pt from previous RN. pt A&Ox4, resting in bed. no c/o pain at this time. junctional rhythm on the tele-monitor w/ PACs. temp epicardial A/V wires insulated. palpable peripheral pulses, no edema noted. pt POX 86-88% on RA. pt placed
on 2 L NC, POX 95%. occasional dry cough noted. lungs diminished at the bases. IS encouraged. abd s/n, +BS. voiding in bathroom. R IJ cordis w/ KVO. PIV intact. heparin gtt infusing per protocol. sternal incision approximated w/ surgi-glue, JAJA,
CDI. CT dressing CDI. see worklist for complete nursing assessment, interventions, VS, and I&Os.
[2023-09-19 23:18] LABS: APTT 99.8 Sec (23.4-35.0)
[2023-09-20] VITALS (21 sets, daily range): BP systolic 74–134; BP diastolic 52–109; BMI 21.3
--- NOTE | 2023-09-20 | PTCARENOTE ---
assessment remains unchanged. accelerated junctional rhythm w/ occasional PACs on tele-monitor. HR 80s. BP 123/61. POX 95% on 1 L NC. no c/o pain at this time.
--- NOTE | 2023-09-20 04:07 | W.PN.CT ---
Today's Communication / Plan
-
Plan:
-No major issues overnight. Hemodynamically and neurologically intact
-No further a-fib with RVR since ~ 3pm on 09/18. Heparin gtt d/c'd this AM, Plan is to transition to Eliquis
-Converted back to accelerated jxn in the 70's, now appears to be in NSR @ 86-90 bpm. Amiodarone and BB held per Cardiology
-Receiving diuresis for hyponatremia, 135 today, was 133 yesterday. Cont. fluid restriction. May have to reduce Lasix to 40 mg IV QD from 40 mg IV BID given diarrhea
-Received a dose of Imodium for diarrhea, magnesium and stool softener placed on hold
-Also noted to have b/l pleural effusion, cont. gentle diuresis
-Replete electrolytes
-Echo on 09/18 showed mild-moderate pericardial effusion (along lateral wall), discussion had between Dr. Martinez and Cardiology, plan is to repeat echo either today vs tomorrow
-D/C cordis
-Encourage use of IS
-Wean off of O2
-OOB into chair/Ambulate
-Maintain temporary A/V wires (will cut before d/c home)
-Home likely Thursday
Assessment / Plan
-
- Symptomatic Severe MR - s/p Radical mitral valve repair [30 mm band annuloplasty, closure of P1 P2 cleft and P2 P3 cleft, 2 pairs of CV 4 [place]-Joel to the posterior leaflet and 1 pair to the A2 segment of the anterior leaflet]; LAAE with 45mm clip
by Dr. Martinez on 09/15/23, pod #5
- Intraop DYLAN: LVEF preop was approximate 55% with no regional wma.� Following surgery EF did decline to approximately 40%, global hypokinesis without regional wall motion abnormalities. At the conclusion of the case, there is no residual mitral
valve insufficiency, no systolic anterior motion of the leaflets, and a mean gradient of 1 across the mitral valve.�Left atrial appendage was verified to be free of any thrombus or debris preoperatively.� Following surgery the appendage was totally
occlusive.� The base was quite wide and large and was difficult to place the clip completely flush due to the dimensions.
�
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
- PVCs
- Hypertension
- Former smoker of 1 pack/day for 35 years
- Raynaud's syndrome
- Osteoporosis
- Spinal stenosis
- Cataracts status post resection
- Acute on chronic diastolic congestive heart failure with EF of approximately 40% with global hypokinesis preoperatively
- Acute postop blood loss anemia
- Acute postop atelectasis/pleural effusion
- Acute postop pulmonary insufficiency
- Acute postop hypovolemia with subsequent hypervolemia
- Acute postop junctional rhythm - holding BB, restarted on 09/17 for rapid a-fib
- Acute postop hyponatremia
- Acute postop paroxysmal a-fib 150s on 09/17/23 - tx with multiple iv Lopressor doses, Amio bolus x2 and drip
- Acute postop small-moderate pericardial effusion (along lateral wall) per echo 09/18
Discussed patient care with: Cardiology, Nursing, Respiratory Therapy, Pharmacy and Care Team
Subjective
Procedure
s/p Radical mitral valve repair [30 mm band annuloplasty, closure of P1 P2 cleft and P2 P3 cleft, 2 pairs of CV 4 [place]el to the posterior leaflet and 1 pair to the A2 segment of the anterior leaflet]; LAAE with 45mm clip by Dr. Martinez on 09/15/23
-
Date of Service: September 20, 2023
Pt c/o mild incisional pain and diarrhea, had two bouts of diarrhea yesterday and 1 this morning. Ambulating halls without difficulty
Objective Data
-
PT 19.3 Sec (11.4-14.6) H 09/15/23 10:42
INR 1.65 09/15/23 10:42
APTT 99.8 Sec (23.4-35.0) H 09/19/23 22:58
Vital Signs
Vital Signs
Temp Pulse Resp BP Pulse Ox
98.2 F 86 16 123/61 95
09/20/23 00:00 09/20/23 00:00 09/20/23 00:00 09/19/23 23:53 09/20/23 00:00
CT Intake/Output/Weight
09/19/23 09/19/23 09/20/23
06:59 18:59 06:59
Intake Total 238 / 981.9 608 / 728 120 / 728
Balance 238 / 981.9 608 / 728 120 / 728
SaO2: 95 (1L)
Physical Exam
-
General: Awake, Oriented and AOx3
Cardiovascular: Regular rate & rhythm, No Murmurs, No Rub and No Gallop
Respiratory: Decreased Breath Sounds (at bases, otherwise clear )
Sternum: Stable
Incision: Clean, Dry, Intact and Dressing Intact
Extremities: Other (+trace edema)
Data Reviewed
-
Lab Results: Results Reviewed
Medications: Active Meds Reviewed
Chest X-Ray: Report Reviewed and Image Reviewed
ECG: Report Reviewed and Image Reviewed
[2023-09-20 06:01] LABS: Hematocrit 31.3 % (37.0-47.0); Hemoglobin 10.7 g/dL (12.0-16.0); Mean Corp Hgb Conc. 34.2 g/dL (33.0-37.0); Mean Corpuscular Hgb 32.7 pg (27.0-31.0); Mean Corpuscular Volume 95.7 fL (81.0-99.0); Platelet Count 330 10^3/uL (130-400); Red Blood Cell Count 3.27 10^6/uL (4.20-5.40); White Blood Cell Count 8.1 10^3/uL (4.8-10.8)
[2023-09-20 06:03] LABS: APTT 79.5 Sec (23.4-35.0)
[2023-09-20 06:20] LABS: Blood Urea Nitrogen 15 mg/dl (7-17); Calcium 9.6 mg/dl (8.4-10.2); Carbon Dioxide 29 mmol/L (22-30); Chloride 97 mmol/L (98-107); Estimated Creatinine Clearance 74 ml/min; Glucose 105 mg/dl (70-99); Magnesium 1.9 mg/dl (1.6-2.3); Sodium 135 mmol/L (135-145); eGFR > 60.00
[2023-09-20] MEDS: CORDARONE 103 MG IV ×2 (07:17→08:04)
[2023-09-20] MEDS: MAGNESIUM SULFATE 50 IV (07:21)
[2023-09-20] MEDS: LOPRESSOR 2.5 MG IV ×3 (07:24→17:06)
--- NOTE | 2023-09-20 07:36 | PTCARENOTE ---
Received pt for 7A-7p shift. Pt AAOx3. While sleeping in bed, HR 190-200s on caretaker. 4L O2 applied, pox 95%. CTPA Ed at bedside. Vagal maneuvers attempted multiple times. Pt asymptomatic, awake, alert. BP 90-110/50-70s. Amio bolus,
Magnesium IV, 2.5mg IV lopressor given as ordered. HR down to 140-150s on caretaker. BP 101/71, pox 99% 4L nc. Pt resting comfortably. CTPA Albert now at bedside. Will continue to monitor patient closely.
[2023-09-20] MEDS: NEURONTIN 100 MG PO (08:16)
[2023-09-20] MEDS: VITAMIN C 1000 MG PO (08:16)
[2023-09-20] MEDS: FEOSOL 325 MG PO ×2 (08:17→19:31)
[2023-09-20] MEDS: KCL 20 MEQ PO (08:17)
[2023-09-20] MEDS: FLEXERIL 5 MG PO (08:17)
[2023-09-20] MEDS: CORDARONE 518 MG IV (08:18)
[2023-09-20] MEDS: LIDOCAINE 4% PATCH TOPICAL (08:29)
[2023-09-20] MEDS: PROTONIX 40 MG PO (08:29)
--- NOTE | 2023-09-20 08:44 | PTCARENOTE ---
Patient still with HR 140-150s. Additional Amio bolus given and Amio drip started as ordered. Pt stable, bp 119/92, pox 95% 4L, denies cp/palpitations at this time. EKG done. Dr Martinez at bedside to see pt. Pacer wires connected to box for backup. Pt
for stat echo today. Will continue to monitor.
[2023-09-20] MEDS: ALBUMIN 5% 250 IV (09:30)
[2023-09-20] MEDS: LASIX IV (09:40)
[2023-09-20] MEDS: HEPARIN 25000 UNITS/250 ML IV (10:11)
--- NOTE | 2023-09-20 10:15 | W.PN.CD ---
Today's Communication / Plan
-
continue amiodarone gtt
continue active epicardial leads
additional imaging to evaluate pleural vs pericardial effusion
agree with volume
will have EP evaluate rhythms in am.
Impression / Plan
-
Mrs. 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
- s/p Radical mitral valve repair (#30 mm band annuloplasty, closure of P1/P2 cleft and P2/P3 cleft, 2 pairs of CV 4 [place]-Joel to the posterior leaflet and 1 pair to the A2
segment of the anterior leaflet), 09/15/2023 (Dr. Martinez).
- s/p Left atrial appendage ligation (45 mm Atriclip).
Afib - rapid ventricular response.
-Back in AF this am
-given Amio bolus, bb IV and now on gtt
-have seen accelerated junction when out of the rhythm so had been holding amio and bb
-will resume amio as she has epicardial pacer leads still
-ep c/s tomorrow
- IV Heparin drip, continue, would hold off on starting DOAC until repeat echo obtained.
- [id number] VASc score is 3 (age, female, HTN).
- s/p LAAE clip 09/15/23.
Pericardial effuison:
-small to moderate without HD signficance on Echo
-repeat echo today given tachyarrhythmia
-small to moderate persist
-difficult to discern on Echo if this is now large and loculated with coagulated contents vs large left pleural effuison on echo alone
-no HD significance of fluid on echo
-She is getting volume back
-d/w Dr Martinez and would recommend additionaly imaging to further evaluate source of the fluid
LV dysfunction - likely due to MR then drop with repair
- currently off standing bb given junctioninal rhythm.
- EF by DYLAN was 50% preop, 40% postop. Preop LVEF 55% by TTE and 40% by cath preop.--> 09/20 EF 40-45% in the setting of RVR, can re-eval when back in NSR.
- GDMT is limited currently by BP, slow heart rhythm
Accelerated junctional rhythm - returned 09/18 after AF resolved
-had been holding bb and amiodarone
-will monitor as with RVR back on amiodarone=
-EP c/s tomorrow
Subjective/Interval History:
feeling better now back in back, have been feeling quite jittery this am with the onset of arrhythmia.
no cp or sob.
CCT in her care today 41 minutes.
DATA:
TTE: 09/20/23:
�CONCLUSIONS
�Mildly depressed global systolic function in the setting of SVT at 171bpm.
�LV EF is 40-45% on visual estimate in the setting of SVT at 171 bpm.
�S/p mitral valve repair.� Peak/mean gradients across the mitral valve are 9/4
�mmHg respectively. No mitral regurgitation is seen.
�-
�Large left pleural effusion vs loculated left sided pericardial effusion. I
�favor the former. There is in the least a small to moderate pericardial
�effusion without evidence of hemodynamic compromise.�
�-
�Compared to the prior on 09/18/23 images, there is small to moderate pericardial
�effusion on the prior is seen again.� Additional imaged reveal left pleural
�effusion vs enlargement of said pericardial effusion.�
�Discussed with Dr Martinez, additional images are needed to differentiate the two
�possible sources of fluid.
�-
�EF is slightly worse and rhythm is now SVT (HR was prior study).
TTE 09/18/23:
CONCLUSIONS
�Technically difficult study with fair image quality.
�Overall left ventricular function appears normal.� Estimated ejection fraction
�55 to 60%
�Wall motion analysis is limited due to image quality.
�Mitral valve is postrepair.� No� mitral regurgitation detected
�Mild aortic regurgitation.
�Small to moderate pericardial effusion mostly seen along the lateral wall.
�Compared to the postoperative DYLAN report, a pericardial effusion is now seen.
Intraop DYLAN, 09/15/23:
�CONCLUSIONS
Preop
Overall LVEF is approximately 50-55% with no RWMA.
�Mildly dilated left atrium.
�Mildly dilated right atrium.
�Mild tricuspid regurgitation.
�Dilated coronary sinus.
�Moderate to severe mitral regurgitation.
�MV annulus is dilated with minimal calcification.
�MR etiology is from PMV leaflet prolapse (P2).
�Mild aortic insufficiency.
�Mild sessile atheroma seen in the descending aorta and distal arch.
POST OPERATIVE FINDINGS
�The patient underwent a MV repair with a size 30 Annuloplasty band, [place]-chords,
�and ligation of the LA appendage.� Postop rhythm remains sinus.� RV function
�remains normal.� Overall LVEF is now approximately 40% with mild global
�hypokinesis.� No significant MR noted.� No perivalvular leaks are noted.� No
�systolic anterior motion of the AMV leaflet noted.� There is no turbulent flow
�in the LVOT.� Mild TR.� PV appears normal.� Mild AI is unchanged (perhaps less
�than preop level).� The LA appendage is clipped.� Just a small area of the
�dilated LA appendage base is left.� No color Doppler flow seen past the clip.�
�Aortic scan is unchanged.
DYLAN, 09/08/2023:
CONCLUSIONS
�Normal left ventricular systolic function. Left ventricular ejection fraction
�is 60%. Severe mitral regurgitation. Prolapse of the posterior mitral leaflet was
�present. Mild aortic regurgitation.
Cardiac Catheterization, 08/11/2023:
CORONARY ANGIOGRAPHY
Dominance: Right
Left Main: Normal
LAD: Normal
Circumflex: Normal
RCA: Normal
Physical Exam
Vital Signs/Labs
Vital Signs
Temp Pulse Resp BP Pulse Ox
98.5 F 143 20 101/70 95
09/20/23 08:00 09/20/23 09:44 09/20/23 08:00 09/20/23 09:44 09/20/23 08:00
09/19/23 09/20/23 09/21/23
06:59 06:59 06:59
Actual Weight 59.6 kg 56.2 kg
09/20/23 05:28
09/20/23 05:28
PT 19.3 Sec (11.4-14.6) H 09/15/23 10:42
INR 1.65 09/15/23 10:42
APTT 79.5 Sec (23.4-35.0) H 09/20/23 05:28
Magnesium 1.9 mg/dl (1.6-2.3) 09/20/23 05:28
Physical Exam
Constitutional: No acute distress and Comfortable
Cardiovascular: Pedal edema is absent, Systolic murmur absent, Diastolic murmur absent and Rhythm/rate is irregular
Respiratory: Respiratory effort normal, Lungs clear to auscul., Wheeze Absent, Crackles Absent and Rhonchi Absent
Neuro/Psych: AO x 3
Data Reviewed
-
Date of Service: September 20, 2023
EKG: Tracing Personally Visualized and interpreted (AF with RVR ns st abnormality)
--- NOTE | 2023-09-20 11:24 | PTCARENOTE ---
Patient AAOx3, bp 132/83, hr 140-150s, afib on radiation monitor, pox 98% 4Lnc. Albumin given. Heparin gtt 8ml/hr started at 1015 as ordered. Pt for ptt at 1615. Pt transported to CT scan with RN and transport, returned without issues. CTPA Albert at
bedside, discussed results with patient. Pt resting comfortably in bed. Will continue to monitor closely.
[2023-09-20] MEDS: NSS 500 IV (14:22)
[2023-09-20] MEDS: NEURONTIN PO ×2 (15:20→22:30)
[2023-09-20] MEDS: FLEXERIL PO ×2 (15:20→22:30)
--- NOTE | 2023-09-20 15:25 | PTCARENOTE ---
Patient AAOx3, still afib, hr 150-160s on library monitor. bp 111/75, pox 96% 4L nc. IV Lopressor 2.5mg given as ordered. Amio gtt and Heparin infusing without complications. Pt refused Neurontin and Flexeril-states she 'is not in pain and does not
want to take more medicine.' Instructed pt to call for assistance prior to ambulation. Will continue to monitor.
--- NOTE | 2023-09-20 16:52 | PTCARENOTE ---
Patient c/o increased dry cough and SOB. pox 93-98% on 4L nc. bp 124/84, hr 130-150s. CTPA Albert aware, at bedside to see patient. Will follow orders and continue to monitor.
--- NOTE | 2023-09-20 19:00 | PTCARENOTE ---
report received from previous RN, walking rounds done. pt in bed, AAOx4. pt denies any pain. AFIB on monitor, HR 130's-140's. Amio gtt infusing @ 0.5mg. Heparin gtt infusing @ 1,000 units/hr. BP normotensive. pt on 4LNC. B/L breath sounds very
diminished in the bases. IS encouraged. pt noted to have frequent dry cough. pt scheduled for thoracentesis in AM. bowel sounds present. pt voids without difficulty. RIJ cordis intact w KVO and Amio infusing. PIV intact and patent w Heparin
infusing. all surgical sites stable. see worklist for full assessment, VS, and interventions. pt resting comfortably.
[2023-09-20] MEDS: TOPROL XL 12.5 MG PO (19:31)
[2023-09-20 22:18] LABS: APTT 115.8 Sec (23.4-35.0)
--- NOTE | 2023-09-20 23:12 | PTCARENOTE ---
pt converted to SR w PACs @ 2300. HR 60's-70's. BP 126/79.
[2023-09-21] VITALS (13 sets, daily range): BP systolic 66–151; BP diastolic 54–85; PULSE 68; O2SAT 94–99; BMI 20.9
--- NOTE | 2023-09-21 03:05 | PTCARENOTE ---
no acute changes in assessment, pt VSS. NSR on monitor, HR 60's-70's. SBP 140's. POX 96% on 4LNC. Amio gtt maintained @ 0.5mg. Heparin gtt infusing @ 900 units/hour per protocol. pt sleeping between care.
--- NOTE | 2023-09-21 04:00 | W.PN.CT ---
Today's Communication / Plan
-
Plan:
-No major issues overnight
-Went into asymptomatic a-fib with RVR (180's) @ ~ 7AM on 09/20/23 and converted to NSR @ 2310 the same day. Currently in NSR @ 70 bpm. On Amiodarone and heparin gtt
-Has mild to moderate pericardial effusion per echo yesterday 09/20 and has moderate bilateral effusion, > on right on my assessment. Will benefit from thoracentesis today
-Currently requiring supplemental O2 of 4L nasal cannula
-Had been in junctional rhythm with both Amiodarone and BB held prior to the recent a-fib
-Will eventual transition heparin gtt to Eliquis
-Had mckenzie receiving diuresis for hyponatremia until yesterday, Na 131 today, was 135 yesterday. Cont. fluid restriction. Diarrhea has resolved
-Received a dose of Imodium for diarrhea, magnesium and stool softener placed on hold
-Replete electrolytes
-D/C cordis after completion of amiodarone gtt
-Encourage use of IS
-Wean off of O2
-OOB into chair/Ambulate
-Maintain temporary A/V wires (will cut before d/c home)
-Home likely tomorrow
Assessment / Plan
-
- Symptomatic Severe MR - s/p Radical mitral valve repair [30 mm band annuloplasty, closure of P1 P2 cleft and P2 P3 cleft, 2 pairs of CV 4 [place]-Joel to the posterior leaflet and 1 pair to the A2 segment of the anterior leaflet]; LAAE with 45mm clip
by Dr. Martinez on 09/15/23, pod #6
- Intraop DYLAN: LVEF preop was approximate 55% with no regional wma.� Following surgery EF did decline to approximately 40%, global hypokinesis without regional wall motion abnormalities. At the conclusion of the case, there is no residual mitral
valve insufficiency, no systolic anterior motion of the leaflets, and a mean gradient of 1 across the mitral valve.�Left atrial appendage was verified to be free of any thrombus or debris preoperatively.� Following surgery the appendage was totally
occlusive.� The base was quite wide and large and was difficult to place the clip completely flush due to the dimensions.
�
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
- PVCs
- Hypertension
- Former smoker of 1 pack/day for 35 years
- Raynaud's syndrome
- Osteoporosis
- Spinal stenosis
- Cataracts status post resection
- Acute on chronic diastolic congestive heart failure with EF of approximately 40% with global hypokinesis preoperatively
- Acute postop blood loss anemia
- Acute postop atelectasis/pleural effusion
- Acute postop pulmonary insufficiency
- Acute postop hypovolemia with subsequent hypervolemia
- Acute postop junctional rhythm - holding BB, restarted on 09/17 for rapid a-fib
- Acute postop hyponatremia
- Acute postop paroxysmal a-fib 150s on 09/17/23 - tx with multiple iv Lopressor doses, Amio bolus x2 and drip
- Acute postop small-moderate pericardial effusion (along lateral wall) per echo 09/18
- Acute postop SVT/atrial tachycardia
Discussed patient care with: Cardiology, Nursing, Respiratory Therapy, Pharmacy and Care Team
Subjective
Procedure
s/p Radical mitral valve repair [30 mm band annuloplasty, closure of P1 P2 cleft and P2 P3 cleft, 2 pairs of CV 4 [place]-Joel to the posterior leaflet and 1 pair to the A2 segment of the anterior leaflet]; LAAE with 45mm clip by Dr. Martinez on 09/15/23
-
Date of Service: September 21, 2023
Pt c/o non-productive cough, otherwise feels well. Diarrhea has resolved
Objective Data
-
PT 19.3 Sec (11.4-14.6) H 09/15/23 10:42
INR 1.65 09/15/23 10:42
APTT 115.8 Sec (23.4-35.0) H 09/20/23 21:57
Vital Signs
Vital Signs
Temp Pulse Resp BP Pulse Ox
98.5 F 68 18 142/59 96
09/21/23 03:05 09/21/23 03:05 09/21/23 03:05 09/21/23 03:05 09/21/23 03:05
CT Intake/Output/Weight
09/20/23 09/20/23 09/21/23
06:59 18:59 06:59
Intake Total 200 / 808 992.7 / 1558.0 565.3 / 1558.0
Output Total 700 / 700
Balance 200 / 808 292.7 / 858.0 565.3 / 858.0
SaO2: 96 (4L)
Physical Exam
-
General: Awake, Oriented and AOx3
Cardiovascular: Regular rate & rhythm, No Murmurs, No Rub and No Gallop
Respiratory: Rhonchi and Decreased Breath Sounds
Incision: Clean, Dry, Intact and Dressing Intact
Extremities: No Edema
Data Reviewed
-
Lab Results: Results Reviewed
Medications: Active Meds Reviewed
Chest X-Ray: Report Reviewed and Image Reviewed
ECG: Report Reviewed and Image Reviewed
[2023-09-21 04:47] LABS: Hematocrit 28.4 % (37.0-47.0); Hemoglobin 9.8 g/dL (12.0-16.0); Mean Corp Hgb Conc. 34.5 g/dL (33.0-37.0); Mean Corpuscular Hgb 33.3 pg (27.0-31.0); Mean Corpuscular Volume 96.6 fL (81.0-99.0); Mean Platelet Volume 9.6 fL (7.4-10.4); Platelet Count 287 10^3/uL (130-400); Red Blood Cell Count 2.94 10^6/uL (4.20-5.40); Red Cell Dist. Width 13.3 % (11.5-14.5); White Blood Cell Count 7.7 10^3/uL (4.8-10.8)
[2023-09-21 05:06] LABS: APTT 88.4 Sec (23.4-35.0)
[2023-09-21 05:31] LABS: Blood Urea Nitrogen 11 mg/dl (7-17); Calcium 9.1 mg/dl (8.4-10.2); Carbon Dioxide 29 mmol/L (22-30); Chloride 95 mmol/L (98-107); Estimated Creatinine Clearance 74 ml/min; Glucose 109 mg/dl (70-99); Magnesium 2.1 mg/dl (1.6-2.3); Potassium 4.3 mmol/L (3.5-5.1); Sodium 131 mmol/L (135-145); eGFR > 60.00
[2023-09-21] MEDS: FLEXERIL PO ×4 (07:59→21:48)
[2023-09-21] MEDS: LIDOCAINE 4% PATCH TOPICAL (07:59)
[2023-09-21] MEDS: NEURONTIN PO ×4 (08:00→21:48)
[2023-09-21] MEDS: PACERONE 200 MG PO ×4 (08:04→21:38)
[2023-09-21] MEDS: FEOSOL 325 MG PO ×2 (08:04→20:17)
[2023-09-21] MEDS: PROTONIX 40 MG PO (08:04)
[2023-09-21] MEDS: VITAMIN C 1000 MG PO (08:04)
[2023-09-21] MEDS: LOPRESSOR 12.5 MG PO ×2 (08:05→20:17)
[2023-09-21] MEDS: NSS IV (08:05)
--- NOTE | 2023-09-21 08:05 | PTCARENOTE ---
Received pt from dayshift RN; pt AAOx3 and resting comfortably in bed; NSR on monitor and VSS; Epicardial wires back up set to DDD 80/0.1 and no pacing noted; Heparin and Amiodarone infusing see flow sheet for details; RIJ Cordis and PIV x1 all
patent; Lungs very diminished bilaterally; pt dyspneic on exertion with a dry cough; NC 4L 95%; positive bowel sounds; pt voiding clear yellow urine; palpable pulses throughout; no edema noted; surgical sites C/D/I; see nursing documentation for
further details.
[2023-09-21] MEDS: KCL 20 MEQ PO (08:06)
[2023-09-21] MEDS: TYLENOL 650 MG PO (08:21)
--- NOTE | 2023-09-21 08:37 | PTCARENOTE ---
Pt transported to IR via stretcher; Heparin drip infusing see flow sheet for details; NSR on monitor and VSS.
--- NOTE | 2023-09-21 09:28 | W.PN.UPDATE ---
Update Note
Progress Note Update
RIght thoracentesis perfomed. 550 ccof serosanguinous fluid removed. US of left showed showed minimal fluid
--- NOTE | 2023-09-21 09:56 | PTCARENOTE ---
Pt returned from IR via stretcher; NSR on monitor and VSS; per IR 550mls of bloody drainage from Right thoracentesis and CVPA/MUSIC RESEARCHER updated.
--- NOTE | 2023-09-21 10:28 | W.PN.CD ---
Today's Communication / Plan
-
- OK to resume Amiodarone, Eliquis and low dose metoprolol
- Repeat ECHO for pericardial effusion
Impression / Plan
-
Mrs. 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
- s/p Radical mitral valve repair (#30 mm band annuloplasty, closure of P1/P2 cleft and P2/P3 cleft, 2 pairs of CV 4 [place]-Joel to the posterior leaflet and 1 pair to the A2
segment of the anterior leaflet), 09/15/2023 (Dr. Martinez).
- s/p Left atrial appendage ligation (45 mm Atriclip).
Afib - rapid ventricular response.
- sinus rhythm now
- s/p Amio bolus, bb IV
- Junctional rhythm noted with amioda / BB but has resolved now. Narrow MD interval and normal sinus rhythm this AM
- No need for a PPM - d/w Dr Martinez
- IV Heparin drip, continue, would hold off on starting DOAC until repeat echo obtained.
- [id number] VASc score is 3 (age, female, HTN).
- s/p LAAE clip 09/15/23.
- Now on Amiodarone 200mg TID and Eliquis 5 mg BID
- Discharge dose of Amiodarone - 200 mg QD after 1 week of loading.
Pericardial effusion:
-small to moderate without HD significance on Echo
-repeat echo today given tachyarrhythmia
-small to moderate persist
-with likely plan for discharge in AM, will get a follow up ECHO as difficult to discern on Echo if this is now large and loculated with coagulated contents vs large left pleural effuison on echo alone
-no HD significance of fluid on echo
LV dysfunction - likely due to MR then drop with repair
- junctional rhythm resolved. OK to sart low dose Metoprolol 12.5 mg BID
- EF by DYLAN was 50% preop, 40% postop. Preop LVEF 55% by TTE and 40% by cath preop.--> 09/20 EF 40-45% in the setting of RVR, can re-eval when back in NSR.
- GDMT is limited currently by BP
Subjective/Interval History:
feeling better now back in back
no cp or sob.
CCT in her care today 31 minutes.
DATA:
TTE: 09/20/23:
�CONCLUSIONS
�Mildly depressed global systolic function in the setting of SVT at 171bpm.
�LV EF is 40-45% on visual estimate in the setting of SVT at 171 bpm.
�S/p mitral valve repair.� Peak/mean gradients across the mitral valve are 9/4
�mmHg respectively. No mitral regurgitation is seen.
�-
�Large left pleural effusion vs loculated left sided pericardial effusion. I
�favor the former. There is in the least a small to moderate pericardial
�effusion without evidence of hemodynamic compromise.�
�-
�Compared to the prior on 09/18/23 images, there is small to moderate pericardial
�effusion on the prior is seen again.� Additional imaged reveal left pleural
�effusion vs enlargement of said pericardial effusion.�
�Discussed with Dr Martinez, additional images are needed to differentiate the two
�possible sources of fluid.
�-
�EF is slightly worse and rhythm is now SVT (HR was prior study).
TTE 09/18/23:
CONCLUSIONS
�Technically difficult study with fair image quality.
�Overall left ventricular function appears normal.� Estimated ejection fraction
�55 to 60%
�Wall motion analysis is limited due to image quality.
�Mitral valve is postrepair.� No� mitral regurgitation detected
�Mild aortic regurgitation.
�Small to moderate pericardial effusion mostly seen along the lateral wall.
�Compared to the postoperative DYLAN report, a pericardial effusion is now seen.
Intraop DYLAN, 09/15/23:
�CONCLUSIONS
Preop
Overall LVEF is approximately 50-55% with no RWMA.
�Mildly dilated left atrium.
�Mildly dilated right atrium.
�Mild tricuspid regurgitation.
�Dilated coronary sinus.
�Moderate to severe mitral regurgitation.
�MV annulus is dilated with minimal calcification.
�MR etiology is from PMV leaflet prolapse (P2).
�Mild aortic insufficiency.
�Mild sessile atheroma seen in the descending aorta and distal arch.
POST OPERATIVE FINDINGS
�The patient underwent a MV repair with a size 30 Annuloplasty band, [place]-chords,
�and ligation of the LA appendage.� Postop rhythm remains sinus.� RV function
�remains normal.� Overall LVEF is now approximately 40% with mild global
�hypokinesis.� No significant MR noted.� No perivalvular leaks are noted.� No
�systolic anterior motion of the AMV leaflet noted.� There is no turbulent flow
�in the LVOT.� Mild TR.� PV appears normal.� Mild AI is unchanged (perhaps less
�than preop level).� The LA appendage is clipped.� Just a small area of the
�dilated LA appendage base is left.� No color Doppler flow seen past the clip.�
�Aortic scan is unchanged.
DYLAN, 09/08/2023:
CONCLUSIONS
�Normal left ventricular systolic function. Left ventricular ejection fraction
�is 60%. Severe mitral regurgitation. Prolapse of the posterior mitral leaflet was
�present. Mild aortic regurgitation.
Cardiac Catheterization, 08/11/2023:
CORONARY ANGIOGRAPHY
Dominance: Right
Left Main: Normal
LAD: Normal
Circumflex: Normal
RCA: Normal
Physical Exam
Vital Signs/Labs
Vital Signs
Temp Pulse Resp BP Pulse Ox
97.7 F 64 20 134/66 92
09/21/23 08:45 09/21/23 09:31 09/21/23 09:31 09/21/23 09:31 09/21/23 09:15
09/20/23 09/21/23 09/22/23
06:59 06:59 06:59
Actual Weight 56.2 kg 55.3 kg
09/21/23 04:25
09/21/23 04:25
PT 19.3 Sec (11.4-14.6) H 09/15/23 10:42
INR 1.65 09/15/23 10:42
APTT 88.4 Sec (23.4-35.0) H 09/21/23 04:25
Magnesium 2.1 mg/dl (1.6-2.3) 09/21/23 04:25
Physical Exam
Constitutional: No acute distress and Comfortable
EENT: Anicteric and Moist mucous membranes
Cardiovascular: Rhythm & rate is regular, Pedal edema is absent and Systolic murmur absent
Respiratory: Respiratory effort normal and Crackles Absent
GI: Soft, Distention absent and Non tender
Neuro/Psych: Alert, Oriented and AO x 3
Data Reviewed
-
Date of Service: September 21, 2023
Medical Decision Making: Reviewed Test Results, Tests Ordered, Independent Historian Assessment, Test Interpretation and Review of Case with other Provider
EKG: Tracing Personally Visualized and interpreted
Echo: Report Reviewed by me
Medical Tests (PFT, Pathology etc): Image Personally Visualized and interpreted
Labs: Labs Reviewed by me
Old Records: Reviewed
Critical Care Time (in minutes): 31
[2023-09-21 10:42] LABS: APTT 62.8 Sec (23.4-35.0)
[2023-09-21] MEDS: LASIX 40 MG IV (10:48)
--- NOTE | 2023-09-21 11:42 | CM ---
Chart reviewed. Patient is independent of ADLS, lives with her significant other in a 2 S[address],, 1 MILLIE, 0 DME. Plan is for the patient to return home with CT RN. CM to follow
--- NOTE | 2023-09-21 11:43 | CM ---
Pricing on Eliquis 5mg BID through the patient's PP is $47 a month. I will place a free 30 day coupon in the patient's red discharge folder.
--- NOTE | 2023-09-21 12:21 | PTCARENOTE ---
Assessment unchanged; NSR on monitor and VSS; Heparin and Amiodarone drip discontinued; pt resting comfortably with family at bedside.
--- NOTE | 2023-09-21 16:23 | PTCARENOTE ---
Assessment unchanged; NSR on monitor and VSS; pt ambulated in hallway with RN.
--- NOTE | 2023-09-21 20:00 | PTCARENOTE ---
assumed care of pt from previous RN. pt A&Ox4, resting in bed. no c/o pain at this time. NSR on tele-monitor. HR 80s. temp epicardial AV wires, w/ backup settings DDD 80/0.1. palpable peripheral pulses, no edema noted. POX 93% on RA. lungs
diminished at bases. no c/o N/V. abd s/n, +BS. voiding in bathroom. 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 PIV intact. see worklist for complete nursing assessment, interventions, VS, and I&Os.
[2023-09-21] MEDS: ELIQUIS 5 MG PO (20:17)
[2023-09-22] VITALS (11 sets, daily range): BP systolic 100–165; BP diastolic 64–113; BMI 21.1
--- NOTE | 2023-09-22 00:12 | PTCARENOTE ---
assessment remains unchanged. POX 86-88% on RA. pt placed on 2 L NC, POX 97%. rhythm appears accelerated junctional w/ PACs on tele-monitor. BP 118/57. no c/o pain at this time.
[2023-09-22 03:22] LABS: Hematocrit 29.5 % (37.0-47.0); Hemoglobin 10.4 g/dL (12.0-16.0); Mean Corp Hgb Conc. 35.3 g/dL (33.0-37.0); Mean Corpuscular Volume 93.7 fL (81.0-99.0); Platelet Count 314 10^3/uL (130-400); Red Blood Cell Count 3.15 10^6/uL (4.20-5.40); Red Cell Dist. Width 13.8 % (11.5-14.5); White Blood Cell Count 8.2 10^3/uL (4.8-10.8)
[2023-09-22 03:46] LABS: Blood Urea Nitrogen 13 mg/dl (7-17); Calcium 9.1 mg/dl (8.4-10.2); Carbon Dioxide 29 mmol/L (22-30); Chloride 98 mmol/L (98-107); Estimated Creatinine Clearance 74 ml/min; Glucose 98 mg/dl (70-99); Magnesium 1.9 mg/dl (1.6-2.3); Potassium 3.8 mmol/L (3.5-5.1); Sodium 132 mmol/L (135-145); eGFR > 60.00
--- NOTE | 2023-09-22 03:49 | W.PN.CT ---
Today's Communication / Plan
-
Plan:
-No major issues overnight. Hemodynamically and neurologically intact
-Underwent R thoracentesis with evacuation of 500 mL of serosanguineous pleural fluid yesterday 09/21
-O2 sats 85-89% on RA last night while asleep, may benefit from L thoracentesis. CXR this AM shows left basilar opacification, likely moderate effusion on my assessment. Hold AM Eliquis
-Rhythm was NSR yesterday, appears to be back in accelerated junctional rhythm (70's) this AM, EKG is reading possible ectopic atrial rhythm with PAC's
-EP to comment on current rhythm, and Amiodarone and BB moving forward
-Repeat echo yesterday 09/21 showed an intact MV Repair with MG of 3mmHg, no MR. EF has improved from 40-45% to 45-50%. Hard to discern if pt has loculated pericardial effusion vs solely Left pleural
effusion
-Eliquis has been started given postop A-fib, heparin gtt d/c'd
-Diuresing for hyponatremia, 132 was 131 yesterday, 137 preop. Cont. fluid restriction. Diarrhea has resolved. Cont. diuresis
-Diarrhea has resolved after a dose of Imodium and hold on magnesium and stool softener. No diarrhea x 2 days
-Replete electrolytes
-D/C cordis
-Encourage use of IS
-Wean off of O2
-OOB into chair/Ambulate
-D/C temporary A/V wires (will cut before d/c home)
-D/C home
Assessment / Plan
-
- Symptomatic Severe MR - s/p Radical mitral valve repair [30 mm band annuloplasty, closure of P1 P2 cleft and P2 P3 cleft, 2 pairs of CV 4 [place]-Joel to the posterior leaflet and 1 pair to the A2 segment of the anterior leaflet]; LAAE with 45mm clip
by Dr. Martinez on 09/15/23, pod #7
- Intraop DYLAN: LVEF preop was approximate 55% with no regional wma.� Following surgery EF did decline to approximately 40%, global hypokinesis without regional wall motion abnormalities. At the conclusion of the case, there is no residual mitral
valve insufficiency, no systolic anterior motion of the leaflets, and a mean gradient of 1 across the mitral valve.�Left atrial appendage was verified to be free of any thrombus or debris preoperatively.� Following surgery the appendage was totally
occlusive.� The base was quite wide and large and was difficult to place the clip completely flush due to the dimensions.
�
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
- PVCs
- Hypertension
- Former smoker of 1 pack/day for 35 years
- Raynaud's syndrome
- Osteoporosis
- Spinal stenosis
- Cataracts status post resection
- Acute on chronic diastolic congestive heart failure with EF of approximately 40% with global hypokinesis preoperatively
- Acute postop blood loss anemia
- Acute postop atelectasis/pleural effusion
- Acute postop pulmonary insufficiency
- Acute postop hypovolemia with subsequent hypervolemia
- Acute postop junctional rhythm - holding BB, restarted on 09/17 for rapid a-fib
- Acute postop hyponatremia
- Acute postop paroxysmal a-fib 150s on 09/17/23 - tx with multiple iv Lopressor doses, Amio bolus x2 and drip
- Acute postop small-moderate pericardial effusion (along lateral wall) per echo 09/18
- Acute postop SVT/atrial tachycardia
- Acute postop b/L pleural effusion S/p R thoracentesis with evacuation of 500 mL of serosanguineous pleural fluid
Discussed patient care with: Cardiology, Nursing, Respiratory Therapy, Pharmacy and Care Team
Subjective
Procedure
s/p Radical mitral valve repair [30 mm band annuloplasty, closure of P1 P2 cleft and P2 P3 cleft, 2 pairs of CV 4 [place]-Joel to the posterior leaflet and 1 pair to the A2 segment of the anterior leaflet]; LAAE with 45mm clip by Dr. Martinez on 09/15/23
-
Date of Service: September 22, 2023
Objective Data
-
Lab Results
09/22/23 03:00
09/22/23 03:00
PT 19.3 Sec (11.4-14.6) H 09/15/23 10:42
INR 1.65 09/15/23 10:42
APTT Cancelled 09/21/23 16:45
Vital Signs
Vital Signs
Temp Pulse Resp BP Pulse Ox
98.0 F 72 16 118/57 97
09/22/23 00:00 09/22/23 00:00 09/22/23 00:00 09/21/23 23:43 09/22/23 00:00
CT Intake/Output/Weight
09/21/23 09/21/23 09/22/23
06:59 18:59 06:59
Intake Total 636.7 / 1629.4 702.8 / 712.8 10 / 712.8
Output Total 800 / 800
Balance 636.7 / 929.4 -97.2 / -87.2 10 / -87.2
SaO2: 97 (2L)
Data Reviewed
-
Lab Results: Results Reviewed
Medications: Active Meds Reviewed
Chest X-Ray: Report Reviewed and Image Reviewed
ECG: Report Reviewed and Image Reviewed
--- NOTE | 2023-09-22 04:00 | PTCARENOTE ---
assessment remains unchanged. junctional rhythm w/ PACs on tele-monitor. HR 70s. POX 98% on 1 L NC. no c/o pain at this time. AM labs collected and sent. EKG performed.
[2023-09-22] MEDS: LOPRESSOR 2.5 MG IV (07:19)
--- NOTE | 2023-09-22 07:20 | PTCARENOTE ---
Pt ambulated to bathroom; HR 160-170s A -fib on monitor, BP 101/74; CVNP updated EKG preformed and resulted A-fib with Rapid Ventricular Response; CV SHADOW GRAPH WEIGHT OPERATOR placed orders for Lopressor 2.5 IV x1 and Amiodarone Bouls; Lopressor given and awaiting
Amiodarone from pharmacy.
[2023-09-22] MEDS: CORDARONE 103 MG IV (07:33)
--- NOTE | 2023-09-22 08:35 | PTCARENOTE ---
Pt AAOx3 and resting comfortably in bed; A- fib on monitor and VSS; Epicardial wires set to back up DDD 80/.01 and no pacing noted; Dr Lerma at bedside and pt made NPO for pacer maker later today; Lungs diminished throughout; positive bowel
sounds; pt voiding clear yellow urine; palpable pulses throughout; no edema noted; surgical sites C/D/I; see nursing documentation for further details.
[2023-09-22] MEDS: LOPRESSOR 12.5 MG PO ×2 (08:42→20:49)
[2023-09-22] MEDS: FEOSOL 325 MG PO ×2 (08:42→20:49)
[2023-09-22] MEDS: PACERONE 200 MG PO ×3 (08:42→20:49)
[2023-09-22] MEDS: PROTONIX 40 MG PO (08:42)
[2023-09-22] MEDS: VITAMIN C 1000 MG PO (08:42)
[2023-09-22] MEDS: FLEXERIL PO ×2 (08:43→15:29)
[2023-09-22] MEDS: LIDOCAINE 4% PATCH TOPICAL (08:43)
[2023-09-22] MEDS: NEURONTIN PO ×3 (08:43→20:57)
--- NOTE | 2023-09-22 09:00 | PTCARENOTE ---
Pt sent to IR via stretcher.
--- NOTE | 2023-09-22 10:13 | PTCARENOTE ---
Pt returned from IR, 400 mls of bloody drainage from Left thoracentesis; BP 108/97 and HR 157 A-fib on monitor; additional dose of Lopressor ordered per CV SLAB STRIPPER.
[2023-09-22] MEDS: LOPRESSOR 5 MG IV (10:40)
[2023-09-22] MEDS: LANOXIN 500 MCG IV (11:18)
[2023-09-22] MEDS: NSS 500 IV (11:28)
--- NOTE | 2023-09-22 12:41 | CM ---
Chart reviewed. Patient is independent of ADLS, lives with her significant other in a 2 STH, 1 MILLIE, 0 DME. Plan is for the patient to return home with CT Transitional RN. CM to follow
--- NOTE | 2023-09-22 12:45 | PTCARENOTE ---
Pt sent to EP with EP RNs via bed. updated by Dr Lerma at bedside.
--- NOTE | 2023-09-22 14:20 | W.PN.CD ---
Today's Communication / Plan
-
- Thoracentesis and PPM today
- DCCV with PPM and uptitrate Metoporlol.
Impression / Plan
-
Mrs. 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
- s/p Radical mitral valve repair (#30 mm band annuloplasty, closure of P1/P2 cleft and P2/P3 cleft, 2 pairs of CV 4 [place]-Joel to the posterior leaflet and 1 pair to the A2
segment of the anterior leaflet), 09/15/2023 (Dr. Martinez).
- s/p Left atrial appendage ligation (45 mm Atriclip).
Afib - rapid ventricular response.
- ectopic atrial rhythm - no sign of sinus rhythm
- Recurrent AF with RVR
- s/p Amio bolus, bb IV
- Junctional rhythm noted with amioda / BB but has resolved now.
- With ectopic atrial rhythm at the best, along with junctional and AF with tachy apollo syndrome, cant avoid pacemaker.
-Discussed with patient, her and CT surgery team along with Dr. Martinez - plan for PPM today
- [id number] VASc score is 3 (age, female, HTN).
- s/p LAAE clip 09/15/23.
- Now on Amiodarone 200mg TID and Eliquis 5 mg BID
- Discharge dose of Amiodarone - 200 mg BID for a week then maintenance dose of 200 mg QD after 1 week of loading.
- Uptitrate Metoprolol as tolerated bu BP
Pericardial effusion:
-small without HD significance on repeat Echo on 09/21/23
-Pleural effusion - plan for pleural tap today
LV dysfunction - likely due to MR then drop with repair
-Tolerating Metoprolol 12.5 mg BID
- EF by DYLAN was 50% preop, 40% postop. Preop LVEF 55% by TTE and 40% by cath preop.--> 09/20 EF 40-45% in NSR.
- GDMT is limited currently by BP
Subjective/Interval History:
palpitations and difficulty breathing.
no cp
CCT in her care today 35 minutes.
DATA:
TTE: 09/20/23:
�CONCLUSIONS
�Mildly depressed global systolic function in the setting of SVT at 171bpm.
�LV EF is 40-45% on visual estimate in the setting of SVT at 171 bpm.
�S/p mitral valve repair.� Peak/mean gradients across the mitral valve are 9/4
�mmHg respectively. No mitral regurgitation is seen.
�-
�Large left pleural effusion vs loculated left sided pericardial effusion. I
�favor the former. There is in the least a small to moderate pericardial
�effusion without evidence of hemodynamic compromise.�
�-
�Compared to the prior on 09/18/23 images, there is small to moderate pericardial
�effusion on the prior is seen again.� Additional imaged reveal left pleural
�effusion vs enlargement of said pericardial effusion.�
�Discussed with Dr Martinez, additional images are needed to differentiate the two
�possible sources of fluid.
�-
�EF is slightly worse and rhythm is now SVT (HR was prior study).
TTE 09/18/23:
CONCLUSIONS
�Technically difficult study with fair image quality.
�Overall left ventricular function appears normal.� Estimated ejection fraction
�55 to 60%
�Wall motion analysis is limited due to image quality.
�Mitral valve is postrepair.� No� mitral regurgitation detected
�Mild aortic regurgitation.
�Small to moderate pericardial effusion mostly seen along the lateral wall.
�Compared to the postoperative DYLAN report, a pericardial effusion is now seen.
Intraop DYLAN, 09/15/23:
�CONCLUSIONS
Preop
Overall LVEF is approximately 50-55% with no RWMA.
�Mildly dilated left atrium.
�Mildly dilated right atrium.
�Mild tricuspid regurgitation.
�Dilated coronary sinus.
�Moderate to severe mitral regurgitation.
�MV annulus is dilated with minimal calcification.
�MR etiology is from PMV leaflet prolapse (P2).
�Mild aortic insufficiency.
�Mild sessile atheroma seen in the descending aorta and distal arch.
POST OPERATIVE FINDINGS
�The patient underwent a MV repair with a size 30 Annuloplasty band, [place]-chords,
�and ligation of the LA appendage.� Postop rhythm remains sinus.� RV function
�remains normal.� Overall LVEF is now approximately 40% with mild global
�hypokinesis.� No significant MR noted.� No perivalvular leaks are noted.� No
�systolic anterior motion of the AMV leaflet noted.� There is no turbulent flow
�in the LVOT.� Mild TR.� PV appears normal.� Mild AI is unchanged (perhaps less
�than preop level).� The LA appendage is clipped.� Just a small area of the
�dilated LA appendage base is left.� No color Doppler flow seen past the clip.�
�Aortic scan is unchanged.
DYLAN, 09/08/2023:
CONCLUSIONS
�Normal left ventricular systolic function. Left ventricular ejection fraction
�is 60%. Severe mitral regurgitation. Prolapse of the posterior mitral leaflet was
�present. Mild aortic regurgitation.
Cardiac Catheterization, 08/11/2023:
CORONARY ANGIOGRAPHY
Dominance: Right
Left Main: Normal
LAD: Normal
Circumflex: Normal
RCA: Normal
Physical Exam
Vital Signs/Labs
Vital Signs
Temp Pulse Resp BP Pulse Ox
98.1 F 81 18 100/82 95
09/22/23 12:55 09/22/23 12:00 09/22/23 12:55 09/22/23 11:16 09/22/23 12:55
09/21/23 09/22/23 09/23/23
06:59 06:59 06:59
Actual Weight 55.3 kg 55.7 kg
09/22/23 03:00
09/22/23 03:00
PT 19.3 Sec (11.4-14.6) H 09/15/23 10:42
INR 1.65 09/15/23 10:42
APTT Cancelled 09/21/23 16:45
Magnesium 1.9 mg/dl (1.6-2.3) 09/22/23 03:00
Physical Exam
Constitutional: No acute distress and Comfortable
EENT: Anicteric and Moist mucous membranes
Cardiovascular: Rhythm/rate is irregular, JVD present and Systolic murmur present
Respiratory: Respiratory effort normal and Rhonchi Present
GI: Soft, Non tender and Normal bowel sounds
Neuro/Psych: Alert, Oriented and AO x 3
Other: Cardiac Device Site
Data Reviewed
-
Date of Service: September 22, 2023
Medical Decision Making: Reviewed Test Results, Independent Historian Assessment, Test Interpretation and Review of Case with other Provider
EKG: Tracing Personally Visualized and interpreted
Echo: Report Reviewed by me
Labs: Labs Reviewed by me
Old Records: Reviewed
Critical Care Time (in minutes): 35
--- NOTE | 2023-09-22 14:27 | ITS.CL.PACE ---
Envelope Addresser - Pacemaker Implant
Pacemaker Implant
Procedure Report:
Dual Chamber Pacemaker Placement:
Ms. 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
pairs of CV 4 [place]-Joel to the posterior leaflet and 1 pair to the A2 segment of the anterior leaflet), 09/15/2023 (Dr. 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
with severe bradycardia and pacing via epicardial leads and is recommended for PPM placement.�
Indications: Tachy Luis Alberto syndrome
Date of the Procedure: 09/22/23
Pre-Operative Diagnosis: Tachy Luis Alberto syndrome
Post-Operative Diagnosis: Tachy Luis Alberto syndrome
Procedure Performed: DUAL CHAMBER PACEMAKER IMPLANTATION
Performing Physician:
Selin Lerma MD
Assistants:
EP staff
Anesthesia:
See anesthesia report
Pre-operative antibiotics:
Ancef
Detailed Description of the Procedure:
The patient was identified using hospital identification and informed consent obtained for the procedure. The risks were explained including, but not limited to: Bleeding, infection, arrhythmia, stroke, vascular/cardiac/lung puncture, surgery,
pacemaker dependency/device malfunction. All questions were answered.
The patient was brought to the electrophysiology laboratory in stable condition in fasting state. Continuous electrocardiographic and hemodynamic monitoring was initiated.
The initial rhythm was atrial fibrillation.
A surgical pause and time out was performed immediately prior to the procedure with review of her medical history, recent labs, allergies and medications with site of procedure identified and consent noted in the chart. Antibiotics pre operatively
given. All team members concurred.
The procedure site was meticulously prepared with surgical scrub and allowed to dry with no pooling. Sterile draping was applied to cover the procedure site. The image intensifier was draped with sterile bag and positioned over the patient.
The left infraclavicular region was prepped and draped in the usual sterile fashion. Local anesthesia was administered subcutaneously using 1% lidocaine / Bupivacaine. The left cephalic vein cutdown was performed with an incision at the
delto-pectoral groove, and vascular sheaths were introduced for lead access. These were advanced into the right ventricle and the right atrium.
There were extreme tortuosity noted in the subclavian vein and long sheaths were needed. The cardiac chambers were rotated as well.
The right ventricular lead was secured in position with an active fixation technique at the apical septal location.
The RA lead was attached in the right atrial appendage with active fixation.
Cardioversion:
Once adequate anesthesia achieved, one synchronized 200J shock was delivered to the chest via Zoll patches placed with lutheran of sinus rhythm. The patient remained hemodynamically stable throughout.
There was excellent sensing, pacing, and impedance from the leads, with no diaphragmatic stimulation at 10 V output.�Bovie cautery, antibiotics, and fluoroscopy were used.
Patient went back to AF.
The sheaths were withdrawn, and the thresholds remained acceptable. The leads were secured in position at the venous entry site with 0-silk. A pocket was fashioned contiguous to the incision. The electrode terminals were connected to the pulse
generator, which was placed into the pocket. The wound was irrigated thoroughly with antibiotic solution.
The wound was closed in 3 layers using 2-0 V loc then two layers of 4-0 V loc sutures to the dermis.
A repeat DCCV was done after Metoprolol 5 mg IV given. PPM setting was modified to pace atrium at 80 bpm and a 200 J was delivered that was successfully achieved sinus rhythm.
Steri-strips were applied externally and covered with Aquacel bandage.
Procedure End:
The procedure was tolerated well.
Estimated Blood loss:
10 cc
Specimens Removed:
No cultures and no specimens were obtained. No intraoperative pathology was identified.
Fluoro time:
2.4 min / 6.4mGy
Urine output:
None
Packs / Drains/ Tubes:
None
Instrument / Sponge Count Correct:
Yes
Complications of the Procedure:
None
Condition of Patient at Time of Transfer:
Hemodynamically stable with no neurological or vascular compromise.
Device information:�
Generator: Gradient X; Model: W1DR01; Serial # [id number]�
Atrial Lead:
Medtronic; Model: 5076-45; Serial # [id number]�
Measured data in the right atrium was sensing of 1.0 mV, impedance of 532 ohms and threshold of 1.2 V at 0.4ms.
RV Lead:
Medtronic; Model: 5076-52; Serial # [id number]
Measured data in the RV lead was sensing of 9.5mV, impedance of 779 ohms and threshold of 1.0 V at 0.4ms�
Luis Alberto parameter settings were AAIR < = > DDDR 70-130 bpm. �
����������� Mode Switch: On
����������� Paced AV interval: 180ms
����������� Sensed AV interval: 150 ms.
����������� Rate Adaptive A-V Interval: Off
Output parameters:
����������������������� Amplitude (V)������������� Pulse Width (ms)������� Sensitivity (mV)
����������� RA: ���� 3.5 ����������������� ����������� 0.4������������������ ����������� 0.15
����������� RV:����� 3.5������������������ ����������� 0.4������������������ ����������� 0.9
Summary:
Successful implantation of MRI compatible dual chamber pacemaker
Results/Recommendations:
-Please follow up CXR�
1. Please provide patient with adequate pain control�
Instructions to be given to patient:�
- Please follow up with [facility] at [address] [place] [address] ([phone]) to get your wound checked within 14 days of your discharge.
- Do not wet incision site until after it is evaluated at cardiology clinic. No soaking or bath until then. Showers or Sponge baths are OK.�Dab dry the area after a shower.
- Do not lift left elbow above shoulder, particularly with sudden jerking movements, for 1 month�
- Do not lift anything weighing more than 10 pounds with the left arm for 1 month�
- If you notice any fevers, shortness of breath, lightheadedness, chest pain, or worsening swelling in the wound site, please contact the arrhythmia clinic, contact your peoplesoft hcm developer, or present to the hospital for evaluation.�
Selin Lerma MD
Electrophysiology
--- NOTE | 2023-09-22 14:43 | PTCARENOTE ---
Pt returned from EP lab via bed; A-paced 100% on monitor and VSS.
[2023-09-22] MEDS: LASIX 40 MG IV (14:52)
[2023-09-22] MEDS: KCL 40 MEQ PO ×2 (14:52→20:57)
--- NOTE | 2023-09-22 16:56 | PTCARENOTE ---
Assessment unchanged; 100% A-paced on monitor and VSS; pt OOB to chair and eating dinner.
[2023-09-22] MEDS: LANOXIN 250 MCG IV (17:14)
--- NOTE | 2023-09-22 20:00 | PTCARENOTE ---
assumed care of pt from previous RN. pt A&Ox4. A-paced w/ new PPM. temp epicardial A/V wires insulated. palpable peripheral pulses, no edema noted. POX 94% on RA. no c/o N/V. voiding in bathroom. all surgical sites stable. L arm immobilizer in
place. pt verbalizes and demonstrates understanding and reasoning for arm immobilizer. R IJ cordis w/ KVO. PIV intact. see worklist for complete nursing assessment, interventions, VS, and I&Os.
[2023-09-22] MEDS: ANCEF 5 IV (20:49)
[2023-09-22] MEDS: FLEXERIL 5 MG PO (20:49)
[2023-09-22] MEDS: LOPRESSOR PO (20:49)
--- NOTE | 2023-09-22 23:32 | W.PN.CT ---
Today's Communication / Plan
-
Plan:
-No major issues overnight. Hemodynamically and neurologically intact
-Underwent L thoracentesis with evacuation of 400 mL of serosanguineous pleural fluid yesterday 09/22
-RA O2 sats has improved since b/l thoracenteses, 92-97% last night while asleep
-Also underwent placement of dual chamber PPM for postop SSS with rapid a-fib, 09/22/23
-S/p DCCV x2 yesterday 09/22 during PPM placement for persistent postop a-fib
-Okay to resume Eliquis this AM per Dr Lerma of EP
-Will be d/c'd home on ASA/Eliquis
-Cont. diuresis, hyponatremia improving 133, was 132 yesterday, 137 preop. Cont. fluid restriction
-Replete electrolytes
-D/C cordis
-Encourage use of IS
-OOB into chair/Ambulate
-D/C temporary A/V wires (will cut before d/c home)
-D/C home
Assessment / Plan
-
- Symptomatic Severe MR - s/p Radical mitral valve repair [30 mm band annuloplasty, closure of P1 P2 cleft and P2 P3 cleft, 2 pairs of CV 4 [place]-Joel to the posterior leaflet and 1 pair to the A2 segment of the anterior leaflet]; LAAE with 45mm clip
by Dr. Martinez on 09/15/23, pod #8
- Intraop DYLAN: LVEF preop was approximate 55% with no regional wma.� Following surgery EF did decline to approximately 40%, global hypokinesis without regional wall motion abnormalities. At the conclusion of the case, there is no residual mitral
valve insufficiency, no systolic anterior motion of the leaflets, and a mean gradient of 1 across the mitral valve.�Left atrial appendage was verified to be free of any thrombus or debris preoperatively.� Following surgery the appendage was totally
occlusive.� The base was quite wide and large and was difficult to place the clip completely flush due to the dimensions.
�
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
- PVCs
- Hypertension
- Former smoker of 1 pack/day for 35 years
- Raynaud's syndrome
- Osteoporosis
- Spinal stenosis
- Cataracts status post resection
- Acute on chronic diastolic congestive heart failure with EF of approximately 40% with global hypokinesis preoperatively
- Acute postop blood loss anemia
- Acute postop atelectasis/pleural effusion
- Acute postop pulmonary insufficiency
- Acute postop hypovolemia with subsequent hypervolemia
- Acute postop junctional rhythm - holding BB, restarted on 09/17 for rapid a-fib
- Acute postop hyponatremia
- Acute postop paroxysmal a-fib 150s on 09/17/23 - tx with multiple iv Lopressor doses, Amio bolus x2 and drip S/p DCCV x 2 on 09/22/23
- Acute postop small-moderate pericardial effusion (along lateral wall) per echo 09/18
- Acute postop SVT/atrial tachycardia
- Acute postop junctional rhythm, ectopic atrial rhythm with PAC's
- Acute postop b/L pleural effusion S/p R thoracentesis with evacuation of 500 mL of serosanguineous pleural fluid, 09/21/23
S/P L thoracentesis with evacuation of 400 mL of serosanguineous pleural fluid, 09/22/23
Discussed patient care with: Cardiology, Nursing, Respiratory Therapy, Pharmacy and Care Team
Subjective
Procedure
s/p Radical mitral valve repair [30 mm band annuloplasty, closure of P1 P2 cleft and P2 P3 cleft, 2 pairs of CV 4 [place]-Joel to the posterior leaflet and 1 pair to the A2 segment of the anterior leaflet]; LAAE with 45mm clip by Dr. Martinez on 09/15/23
-
Date of Service: September 22, 2023
Pt offers no complaints, breathing is a lot better after thoracentesis yesterday
Objective Data
-
Lab Results
09/22/23 03:00
09/22/23 03:00
PT 19.3 Sec (11.4-14.6) H 09/15/23 10:42
INR 1.65 09/15/23 10:42
APTT Cancelled 09/21/23 16:45
Vital Signs
Vital Signs
Temp Pulse Resp BP Pulse Ox
98.3 F 70 18 110/91 94
09/22/23 20:00 09/22/23 22:00 09/22/23 20:00 09/22/23 20:49 09/22/23 22:59
CT Intake/Output/Weight
09/22/23 09/22/23 09/23/23
06:59 18:59 06:59
Intake Total .8 143 / 153
Balance 10 -87.2 143 / 153
SaO2: 99 (RA)
Physical Exam
-
General: Awake, Oriented and AOx3
Cardiovascular: Regular rate & rhythm, No Murmurs, No Rub and No Gallop
Respiratory: Decreased Breath Sounds (mild bibasilar crackles)
Sternum: Stable
Incision: Clean, Dry, Intact and Dressing Intact
Extremities: Other (trace edema)
Data Reviewed
-
Lab Results: Results Reviewed
Medications: Active Meds Reviewed
Chest X-Ray: Report Reviewed and Image Reviewed
ECG: Report Reviewed and Image Reviewed
--- NOTE | 2023-09-23 | PTCARENOTE ---
assessment remains unchanged. 100% a-paced w/ PPM. POX 95% on RA. BP 133/53. no c/o pain at this time.
[2023-09-23 00:01] VITALS: BP 133/53
[2023-09-23 01:03] LABS: Hematocrit 29.2 % (37.0-47.0); Hemoglobin 10.3 g/dL (12.0-16.0); Mean Corp Hgb Conc. 35.3 g/dL (33.0-37.0); Mean Corpuscular Hgb 33.7 pg (27.0-31.0); Mean Corpuscular Volume 95.4 fL (81.0-99.0); Mean Platelet Volume 8.9 fL (7.4-10.4); Platelet Count 280 10^3/uL (130-400); Red Blood Cell Count 3.06 10^6/uL (4.20-5.40); Red Cell Dist. Width 13.9 % (11.5-14.5); White Blood Cell Count 9.7 10^3/uL (4.8-10.8)
[2023-09-23 03:41] VITALS: BP 144/59
[2023-09-23] MEDS: ANCEF 5 IV (03:55)
[2023-09-23 04:12] LABS: Blood Urea Nitrogen 15 mg/dl (7-17); Calcium 9.1 mg/dl (8.4-10.2); Carbon Dioxide 30 mmol/L (22-30); Chloride 98 mmol/L (98-107); Estimated Creatinine Clearance 74 ml/min; Glucose 104 mg/dl (70-99); Magnesium 1.7 mg/dl (1.6-2.3); Potassium 4.5 mmol/L (3.5-5.1); Sodium 133 mmol/L (135-145); eGFR > 60.00
[2023-09-23] MEDS: MAGNESIUM SULFATE 102 GRAMS IV (06:06)
[2023-09-23] MEDS: TYLENOL 650 MG PO (06:06)
[2023-09-23 07:14] VITALS: BP 135/65
--- NOTE | 2023-09-23 07:15 | PTCARENOTE ---
Patient received from assistant shift supervisor resting in bed, AAO x 3, states pain controlled at this time. A-paced via cm, SaO2 @ 96% on RA. RIJ Cordis w/kvo infusing. Epicardial A+V wires insulated to chest wall. LCW PPM, site cdi, L arm sling in place.
Assisted oob to bathroom, am care performed, breakfast ordered. Patient updated to plan of care the day including possibly d/c home, in agreement. See work list for full assessment and interventions performed.
[2023-09-23 07:19] VITALS: BMI 20.9
--- NOTE | 2023-09-23 07:53 | W.DCSUMMARY ---
Addendum entered and electronically signed by LUIS Cote 09/23/23 12:05:
ASA was NOT resumed on DC>Eliquis only
Original Note:
Discharge Summary
Discharge Data
Date of Admission: 09/15/23
Date of Discharge: 09/23/23
-
Pending Results: No
Hospital Course
Primary care physician: Guadalupe Alcazar
Outpatient barrel rifler broach: Syd Melendrez
Inpatient consultants: [facility]
Procedures:
1. Mitral valve repair and left atrial appendage clip
2. Medtronic dual chamber pacemaker
3. Right thoracentesis
4. Left thoracentesis
Primary Diagnosis:
1. 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
Secondary Diagnoses:
1. Hypertension
2.�Raynaud's syndrome
3.�Osteoporosis
4.�Spinal stenosis
5.�Cataracts status post resection
6.�Acute on chronic congestive heart failure
7. Acute surgical blood loss anemia
8. Acute postop hyponatremia
9. Acute postop paroxysmal a-fib
10. Acute postop small-moderate pericardial effusion (along lateral wall)� per echo 09/18
11. Acute postop junctional rhythm, ectopic atrial rhythm
12. Acute postop b/L pleural effusion
HPI: Alison Don is a 73-year-old female electively admitted on 09/15 for complex mitral valve repair and left atrial appendage clip
Hospital course: Patient underwent �a radical mitral valve repair #30 mm band annuloplasty, closure of P1 P2 cleft and P2 P3 cleft, 2 pairs of CV 4 [place]-Joel to the posterior leaflet and 1 pair to the A2 segment of the anterior leaflet, and left
atrial appendage ligation #[address] Martinez on 09/15/23. Patient received 1 packed red blood cell intraoperatively and was transferred to the CVICU on Levophed, insulin, and Precedex. Patient developed atrial fibrillation was started on
amnio infusion. On postoperative day 1 patient rhythm converted to junctional rhythm. Atrial pacing was initiated and beta-patrizia was held. A postoperative transthoracic echocardiogram gram performed on 09/18 reported pericardial effusion and
follow-up CT of chest reported minimal pericardial fluid with moderate bilateral pleural effusions. Intravenous heparin was initiated and follow-up transthoracic echocardiogram on 09/20 reported small to moderate pericardial effusion but large
pleural effusions. Patient underwent right thoracentesis for 550 cc of bloody drainage. On postoperative day #7 (09/22), patient desaturated to 88% on room air overnight and patient underwent left thoracentesis for 400 cc of fluid. Patient
developed rapid atrial fibrillation and received amnio bolus x 2, Lopressor total of 10 mg, and digoxin load. Patient was evaluated by supervisor liquefaction. Eliquis was held and patient underwent Medtronic dual-chamber pacemaker insertion with
Florentin. On postoperative day #8 (09/23), Eliquis was restarted and patient had pacer interrogated by [employer] territory service representative. Patient successfully climbs stairs with physical therapy and is deemed stable for discharge home today. Her Lopressor
dose was increased to 25 mg twice daily and amiodarone dose decreased to 200 twice daily on discharge x 1 week followed by 200 mg daily. Patient will have follow-up BMP and CXR in 1 week.
Home medication changes:
Lopressor dose increased
Discharge Plan
-
Patient Disposition: Home (Routine Discharge)
Discharge Diagnosis/Procedures: mitral regurgitaton/mitral valve repair
Condition: Good
Diet: Low Cholesterol and Low Sodium
Activity: No strenuous activity
Driving Restrictions: Not until seen by your Dr
Bathing Restrictions: OK to Shower
Blood Work: BMP in 1 week
Others Tests: CXR in 1 week
Other Services: Cardiac Rehab
Specialty Instructions: Weigh Daily- Call MD for wt gain/loss 3 lbs overnight/5 lbs in 1 week
Stand Alone Forms: DC Inst - Implanted Device
Referrals:
CT Transitional Care Nurse [Outside] - in one to two days
(
The Cardiothoracic Transitional Care Nurse will call you to set up a visit in 1-2 days.)
[facility] [Outside] - 10/22/23 1:00 pm
(Cardiac Rehab Orientation appointment and� First Exercise appointment is on 10/22/23 at 1 PM.
The Cardiac Rehab gym is located on the first floor of the [facility].)
Guadalupe Alcazar MD [Family Provider] - in four to six weeks (Please make an appointment in four to six weeks. )
Rivka Grimaldo CRNP [Specified Professional Personl] - 10/28/23 10:40 am
Daniel Martinez MD [Active] - 10/14/23 1:15 pm
Prescriptions:
New
acetaminophen 325 mg Tablet
650 mg PO Q4HPRN PRN (Reason: mild pain,headache,temp >101F ) Qty: 0 0RF
pantoprazole 40 mg Tablet,Delayed Release (Dr/Ec)
40 mg PO DAILY Qty: 30 0RF
Eliquis 5 mg Tablet
5 mg PO BID Qty: 60 1RF
amiodarone [Pacerone] 200 mg Tablet
200 mg PO BID Qty: 60 1RF
Rx Instructions:
200mg BID x 1 week, then 200mg daily
cyclobenzaprine 10 mg Tablet
5 mg PO .tid prn Qty: 20 0RF
gabapentin 100 mg Capsule
100 mg PO TID Qty: 90 0RF
metoprolol tartrate 25 mg Tablet
25 mg PO BID Qty: 60 1RF
Continued
aspirin 81 mg Tablet,Chewable
81 mg PO DAILY Qty: 0 0RF
vitamin B complex Tablet
1 tab PO BID Qty: 0 0RF
lqbhhzynapbl-schpjmfv-nzrkls Tablet
1 tab PO BID Qty: 0 0RF
Patient Comments:
Does not take
cholecalciferol (vitamin D3) [Vitamin D3] 50 mcg (2,000 unit) Capsule
50 mcg PO BID Qty: 0 0RF
furosemide 20 mg Tablet
20 mg PO DAILY Qty: 0 0RF
Discontinued
metoprolol succinate 25 mg Tablet Extended Release 24 Hr
25 mg PO DAILY
Care Plan Goals
Care Plan Goals:
Problem: Readiness for enhanced knowledge related to diagnosis and treatment plan
Goal: Understand your diagnosis and treatment plan needs, including medications if applicable.
Instructions: Know your diagnosis, underlying causes and treatment plan options, including medications if applicable. Consult with your health care team to learn about your diagnosis and treatment plan, including medications if applicable.
[2023-09-23] MEDS: PROTONIX 40 MG PO (08:07)
[2023-09-23] MEDS: FLEXERIL PO (08:08)
[2023-09-23] MEDS: PACERONE 200 MG PO (08:08)
[2023-09-23] MEDS: NEURONTIN PO (08:08)
[2023-09-23] MEDS: LASIX 40 MG IV (08:09)
[2023-09-23] MEDS: LOPRESSOR 25 MG PO (08:09)
[2023-09-23] MEDS: KCL 20 MEQ PO (08:09)
[2023-09-23] MEDS: FEOSOL 325 MG PO (08:09)
[2023-09-23] MEDS: ELIQUIS 5 MG PO (08:09)
[2023-09-23] MEDS: VITAMIN C 1000 MG PO (08:09)
[2023-09-23] MEDS: LIDOCAINE 4% PATCH TOPICAL (08:10)
[2023-09-23] MEDS: NSS IV (08:43)
--- NOTE | 2023-09-23 08:45 | PTCARENOTE ---
Epicardial temp wires cut as ordered by this RN and RN assist. Patient tolerated well. PROSPER Starr d/theodore'd w/out incident.
--- NOTE | 2023-09-23 08:56 | W.PN.CD ---
Today's Communication / Plan
-
- PPM is working normally.
- stable for discharge from cardiac stand point.
Impression / Plan
-
Mrs. 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
- s/p Radical mitral valve repair (#30 mm band annuloplasty, closure of P1/P2 cleft and P2/P3 cleft, 2 pairs of CV 4 Cameron-Joel to the posterior leaflet and 1 pair to the A2
segment of the anterior leaflet), 09/15/2023 (Dr. Martinez).
- s/p Left atrial appendage ligation (45 mm Atriclip).
Afib - rapid ventricular response.
- ectopic atrial rhythm - no sign of sinus rhythm
- Recurrent AF with RVR
- s/p Amio bolus, bb IV
- Junctional rhythm noted with amioda / BB but has resolved now.
- s/p PPM on 09/22/23 - atrial paced at 80 bpm and now set at 70 bpm
- [id number] VASc score is 3 (age, female, HTN).
- s/p LAAE clip 09/15/23.
- Now on Amiodarone 200mg TID and Eliquis 5 mg BID
- Discharge dose of Amiodarone - 200 mg BID for a week then maintenance dose of 200 mg QD after 1 week of loading.
- Continue Metoprolol 25 mg BID
Pericardial effusion:
-small without HD significance on repeat Echo on 09/21/23
-Pleural effusion - s/pr pleural tap 09/22/23
LV dysfunction - likely due to MR then drop with repair
- now on Metoprolol 25 mg BID
- EF by DYLAN was 50% preop, 40% postop. Preop LVEF 55% by TTE and 40% by cath preop.--> 09/20 EF 40-45% in NSR.
- GDMT is limited currently by BP
Subjective/Interval History:
palpitations and difficulty breathing.
no cp
CCT in her care today 35 minutes.
DATA:
TTE: 09/20/23:
�CONCLUSIONS
�Mildly depressed global systolic function in the setting of SVT at 171bpm.
�LV EF is 40-45% on visual estimate in the setting of SVT at 171 bpm.
�S/p mitral valve repair.� Peak/mean gradients across the mitral valve are 9/4
�mmHg respectively. No mitral regurgitation is seen.
�-
�Large left pleural effusion vs loculated left sided pericardial effusion. I
�favor the former. There is in the least a small to moderate pericardial
�effusion without evidence of hemodynamic compromise.�
�-
�Compared to the prior on 09/18/23 images, there is small to moderate pericardial
�effusion on the prior is seen again.� Additional imaged reveal left pleural
�effusion vs enlargement of said pericardial effusion.�
�Discussed with Dr Martinez, additional images are needed to differentiate the two
�possible sources of fluid.
�-
�EF is slightly worse and rhythm is now SVT (HR was prior study).
TTE 09/18/23:
CONCLUSIONS
�Technically difficult study with fair image quality.
�Overall left ventricular function appears normal.� Estimated ejection fraction
�55 to 60%
�Wall motion analysis is limited due to image quality.
�Mitral valve is postrepair.� No� mitral regurgitation detected
�Mild aortic regurgitation.
�Small to moderate pericardial effusion mostly seen along the lateral wall.
�Compared to the postoperative DYLAN report, a pericardial effusion is now seen.
Intraop DYLAN, 09/15/23:
�CONCLUSIONS
Preop
Overall LVEF is approximately 50-55% with no RWMA.
�Mildly dilated left atrium.
�Mildly dilated right atrium.
�Mild tricuspid regurgitation.
�Dilated coronary sinus.
�Moderate to severe mitral regurgitation.
�MV annulus is dilated with minimal calcification.
�MR etiology is from PMV leaflet prolapse (P2).
�Mild aortic insufficiency.
�Mild sessile atheroma seen in the descending aorta and distal arch.
POST OPERATIVE FINDINGS
�The patient underwent a MV repair with a size 30 Annuloplasty band, Nilton-chords,
�and ligation of the LA appendage.� Postop rhythm remains sinus.� RV function
�remains normal.� Overall LVEF is now approximately 40% with mild global
�hypokinesis.� No significant MR noted.� No perivalvular leaks are noted.� No
�systolic anterior motion of the AMV leaflet noted.� There is no turbulent flow
�in the LVOT.� Mild TR.� PV appears normal.� Mild AI is unchanged (perhaps less
�than preop level).� The LA appendage is clipped.� Just a small area of the
�dilated LA appendage base is left.� No color Doppler flow seen past the clip.�
�Aortic scan is unchanged.
DYLAN, 09/08/2023:
CONCLUSIONS
�Normal left ventricular systolic function. Left ventricular ejection fraction
�is 60%. Severe mitral regurgitation. Prolapse of the posterior mitral leaflet was
�present. Mild aortic regurgitation.
Cardiac Catheterization, 08/11/2023:
CORONARY ANGIOGRAPHY
Dominance: Right
Left Main: Normal
LAD: Normal
Circumflex: Normal
RCA: Normal
Physical Exam
Vital Signs/Labs
Vital Signs
Temp Pulse Resp BP Pulse Ox
98.2 F 75 18 135/65 96
09/23/23 07:22 09/23/23 08:09 09/23/23 07:22 09/23/23 08:09 09/23/23 07:30
09/22/23 09/23/23 09/24/23
06:59 06:59 06:59
Actual Weight 55.7 kg 55.2 kg
09/23/23 00:54
09/23/23 00:54
PT 19.3 Sec (11.4-14.6) H 09/15/23 10:42
INR 1.65 09/15/23 10:42
APTT Cancelled 09/21/23 16:45
Magnesium 1.7 mg/dl (1.6-2.3) 09/23/23 00:54
Physical Exam
Constitutional: No acute distress and Comfortable
EENT: Anicteric and Moist mucous membranes
Cardiovascular: Rhythm & rate is regular, Pedal edema is absent, JVD pressure is normal and Systolic murmur absent
Respiratory: Respiratory effort normal, Lungs clear to auscul. and Wheeze Absent
GI: Soft, Non tender and Normal bowel sounds
Neuro/Psych: Alert, Oriented and AO x 3
Other: Cardiac Device Site
Data Reviewed
-
Date of Service: September 23, 2023
Medical Decision Making: Reviewed Test Results, Independent Historian Assessment, Test Interpretation and Review of Case with other Provider
EKG: Tracing Personally Visualized and interpreted
Echo: Report Reviewed by me
X-Ray/CT/US/MRI/NUC/PET: Image Personally Visualized and interpreted
Labs: Labs Reviewed by me
Old Records: Reviewed
[2023-09-23 10:00] VITALS: BP 138/54; BP 141/61; PULSE 71; O2SAT 95
[2023-09-23 10:46] VITALS: BP 138/54
[2023-09-23 10:50] VITALS: BP 141/61
--- NOTE | 2023-09-23 12:33 | PTCARENOTE ---
Patient set up to shower, completed independently. PIV x 2 removed. Discharge instructions thoroughly reviewed w/patient and spouse, all questions answered. Patient and all belongings transported to waiting vehicle for d/c home to private residence.
== END 2023-09-23 13:17 | disposition home or self-care (01) | DRG 219 ==
LOC: CVICU 04:42
PROVIDERS: Internal Medicine Cardiovascular Disease; Nurse Practitioner Adult Health; Physician Assistant Medical; Physician Assistant Surgical; Radiology Vascular & Interventional Radiology; ADMITTING PHYSICIAN Thoracic Surgery (Cardiothoracic Vascular Surgery); CONSULT PHYSICIAN Internal Medicine Critical Care Medicine; FAMILY PHYSICIAN Family Medicine
PROC: 3E033RZ Introduction of Antiarrhythmic into Peripheral Vein, Percutaneous Approach (ICD-10-PCS; 2023-09-15)
PROC: 02L70CK Occlusion of Left Atrial Appendage with Extraluminal Device, Open Approach (ICD-10-PCS; 2023-09-15)
PROC: B24BZZ4 Ultrasonography of Heart with Aorta, Transesophageal (ICD-10-PCS; 2023-09-15)
PROC: 02UG0JZ Supplement Mitral Valve with Synthetic Substitute, Open Approach (ICD-10-PCS; 2023-09-15)
PROC: 30233N1 Transfusion of Nonautologous Red Blood Cells into Peripheral Vein, Percutaneous Approach (ICD-10-PCS; 2023-09-15)
PROC: 02HK0JZ Insertion of Pacemaker Lead into Right Ventricle, Open Approach (ICD-10-PCS; 2023-09-15)
PROC: 5A09357 Assistance with Respiratory Ventilation, Less than 24 Consecutive Hours, Continuous Positive Airway Pressure (ICD-10-PCS; 2023-09-15)
PROC: 5A1223Z Performance of Cardiac Pacing, Continuous (ICD-10-PCS; 2023-09-15)
PROC: 5A1221Z Performance of Cardiac Output, Continuous (ICD-10-PCS; 2023-09-15)
PROC: 0W993ZZ Drainage of Right Pleural Cavity, Percutaneous Approach (ICD-10-PCS; 2023-09-21)
PROC: 5A2204Z Restoration of Cardiac Rhythm, Single (ICD-10-PCS; 2023-09-22)
PROC: 0JH606Z Insertion of Pacemaker, Dual Chamber into Chest Subcutaneous Tissue and Fascia, Open Approach (ICD-10-PCS; 2023-09-22)
PROC: 02H63JZ Insertion of Pacemaker Lead into Right Atrium, Percutaneous Approach (ICD-10-PCS; 2023-09-22)
PROC: 0W9B3ZZ Drainage of Left Pleural Cavity, Percutaneous Approach (ICD-10-PCS; 2023-09-22)
PROC: 02HK3JZ Insertion of Pacemaker Lead into Right Ventricle, Percutaneous Approach (ICD-10-PCS; 2023-09-22)
DX: I34.0 Nonrheumatic mitral (valve) insufficiency (principal); I50.33 Acute on chronic diastolic (congestive) heart failure; J95.1 Acute pulmonary insufficiency following thoracic surgery; J90 Pleural effusion, not elsewhere classified; D62 Acute posthemorrhagic anemia; J98.11 Atelectasis; E87.1 Hypo-osmolality and hyponatremia; I31.39 Other pericardial effusion (noninflammatory); I47.10 Supraventricular tachycardia, unspecified; I48.0 Paroxysmal atrial fibrillation; I49.5 Sick sinus syndrome; E86.1 Hypovolemia; I49.8 Other specified cardiac arrhythmias; I11.0 Hypertensive heart disease with heart failure; I73.00 Raynaud's syndrome without gangrene; M81.0 Age-related osteoporosis without current pathological fracture; M48.00 Spinal stenosis, site unspecified; H26.9 Unspecified cataract; Z87.891 Personal history of nicotine dependence; E78.5 Hyperlipidemia, unspecified; Z98.1 Arthrodesis status; Z82.49 Family history of ischemic heart disease and other diseases of the circulatory system; Z83.3 Family history of diabetes mellitus; Z79.82 Long term (current) use of aspirin
CPT/HCPCS: 93308; 32555; 33208; 36415; 71045; 71046; 71250; 80048; 80053; 81003; 82248; 82330; 82565; 82805; 82810; 82947; 82962; 83036; 83735; 84132; 84302; 84520; 85014; 85018; 85025; 85027; 85049; 85610; 85730; 86850; 86900; 86901; 86920; 87070; 93005; 93312; 93320; 93321; 93325; 94010; C1769; C1785; C1892; C1898; J1160; J2916; P9016; P9045; P9047

== ENCOUNTER → 2023-09-29 12:30 | Outpatient (REF) | payer OTHER, SELFPAY | LOC: RAD 12:30 | PROVIDERS: ATTENDING PHYSICIAN Thoracic Surgery (Cardiothoracic Vascular Surgery) | DX: E78.1 Pure hyperglyceridemia (principal); J90 Pleural effusion, not elsewhere classified | CPT/HCPCS: 71046 ==

== ENCOUNTER → 2024-04-13 09:21 | Outpatient (REF) | payer OTHER, SELFPAY | LOC: RCS 09:21 | PROVIDERS: ATTENDING PHYSICIAN Thoracic Surgery (Cardiothoracic Vascular Surgery); FAMILY PHYSICIAN Family Medicine | DX: Z98.890 Other specified postprocedural states (principal) | CPT/HCPCS: 93306 ==

== ENCOUNTER 2024-08-23 10:18 | Emergency (ER) | payer OTHER, SELFPAY ==
[2024-08-23] VITALS (17 sets, daily range): BP systolic 107–146; BP diastolic 66–87; BMI 20.9
[2024-08-23 10:47] LABS: % Basophils 0.7 % (0-2); % Eosinophils 0.8 % (0-6); % Immature Granulocytes 0.1 % (0-0.5); % Lymphocytes 23.2 % (20.5-51.1); % Monocytes 7.2 % (1.7-9.3); Absolute Basophils 0.1 10^3/uL (0-0.2); Absolute Eosinophils 0.1 10^3/uL (0-0.7); Absolute Lymphocytes 1.7 10^3/uL (1.2-3.4); Absolute Monocytes 0.5 10^3/uL (0.1-0.6); Absolute Neutrophils 4.9 10^3/uL (1.4-6.5); Hematocrit 42.7 % (37.0-47.0); Hemoglobin 15.1 g/dL (12.0-16.0); Mean Corp Hgb Conc. 35.4 g/dL (33.0-37.0); Mean Corpuscular Hgb 32.3 pg (27.0-31.0); Mean Corpuscular Volume 91.4 fL (81.0-99.0); Nucleated Red Blood Cells % 0 %; Platelet Count 355 10^3/uL (130-400); Red Blood Cell Count 4.67 10^6/uL (4.20-5.40); Red Cell Dist. Width 12.2 % (11.5-14.5); White Blood Cell Count 7.2 10^3/uL (4.8-10.8)
[2024-08-23 11:00] LABS: ALT (SGPT) 17 U/L (0-35); AST (SGOT) 30 U/L (14-36); Albumin 4.8 g/dl (3.5-5.0); Alkaline Phosphatase 76 U/L (38-126); Blood Urea Nitrogen 16 mg/dl (7-17); Calcium 10.2 mg/dl (8.4-10.2); Carbon Dioxide 29 mmol/L (22-30); Chloride 98 mmol/L (98-107); Glucose 132 mg/dl (70-99); Potassium 4.1 mmol/L (3.5-5.1); Sodium 138 mmol/L (135-145); Total Bilirubin 1.6 mg/dl (0.2-1.3); eGFR > 60.00
[2024-08-23 11:30] LABS: TSH 1.75 uIU/ml (0.47-4.68)
--- NOTE | 2024-08-23 11:34 | ED.GENMED ---
History of Present Illness
<LUIS Joyner - Last Filed: 08/23/24 14:55>
General
Chief Complaint: Heart Rate Problem
Source: patient
Exam Limitations: none
Time Seen by Provider: 08/23/24 10:44
Nursing documentation reviewed up to this point in time: agreed with
History of Present Illness
History of Present Illness:
74 yr old female presents to the ER for evaluation. Patient had an appoint with her senior software qa engineer this am and was found to be in A-fib and sent to the ER. She does have a history of A-fib and is on Eliquis. She has not missed a dose
and did take it this morning. She reports that she felt little shaky yesterday and today however otherwise did not know she was in A-fib. Denies any associated chest pain shortness of breath.
Past History
<LUIS Joyner - Last Filed: 08/23/24 14:55>
Past History
ED Past Medical History: None
ED Past Surgical History: Orthopedic (Lumbar surgery)
Social History
Tobacco: Non-smoker
Alcohol: None
Personal:
Living: with family
Employment: Employed
Review of Systems
<LUIS Joyner - Last Filed: 08/23/24 14:55>
Review of Systems
Allergies reviewed?: Yes
Other source history: family
All Other Systems: ROS reviewed and negative except as documented in HPI and ROS
Constitutional: Reports no symptoms; Denies fever, fatigue or chills
Cardiac: Reports no symptoms; Denies chest pain or palpitations
ABD/GI: Reports no symptoms
: Reports no symptoms
Musculoskeletal: Reports no symptoms
Skin: Reports no symptoms
Psychiatric: Reports no symptoms
Phy Exam
<LUIS Joyner - Last Filed: 08/23/24 14:55>
General Physical Exam
General Presentation: no apparent distress
General age: appears stated age
General Skin: warm and dry
General Habitus: normal
General Mental: alert
General Hydration: appears well hydrated
Cardiovascular Exam
Cardiovascular Exam: irregularly irregular
Pulmonary Exam
Pulmonary Exam: lungs clear and no respiratory distress
Neurological Exam
Neurological Exam: alert and oriented x3
Musculoskeletal Exam
Musculoskeletal Exam: full ROM
Psychiatric Exam
Psychiatric Exam: normal mood/affect
Course
<LUIS Joyner - Last Filed: 08/23/24 14:55>
Orders/Labs/Results
Orders:
Orders
08/23/24 10:19
ECG [Electrocardiogram (*1)] Urgent
Reason for Study: Palpitations
EKG- Treatment ONCE
08/23/24 10:36
Complete Blood Count/With Diff Urgent
Comprehensive Metabolic Panel Urgent
TSH Urgent
08/23/24 12:08
ASA Classification Routine
Propofol [Diprivan] 40 mg IV NOW STA
08/23/24 12:54
Electrocardiogram (*1) Urgent
Reason for Study: Other
Other Reason for Exam: post cardioversion
08/23/24 12:55
EKG- Treatment ONCE
08/23/24 13:01
EKG- Treatment ONCE
08/23/24 14:04
Metoprolol Xl [Toprol Xl] 25 mg PO NOW STA
Abnormal Lab Results
08/23/24
10:36
MCH 32.3 H pg
(27.0-31.0)
Glucose 132 H mg/dl
(70-99)
Total Bilirubin 1.6 H mg/dl
(0.2-1.3)
08/23/24 10:36
08/23/24 10:36
Vital Signs
Initial and Last Documented VS:
Initial Vital Signs
Temp Pulse Resp BP Pulse Ox
97.3 F 150 18 146/83 99
08/23/24 10:26 08/23/24 10:26 08/23/24 10:26 08/23/24 10:26 08/23/24 10:26
Last Documented Vital Signs
Temp Pulse Resp BP Pulse Ox
97.9 F 90 19 125/66 98
08/23/24 12:58 08/23/24 14:16 08/23/24 14:15 08/23/24 14:16 08/23/24 14:00
Lillilt;Allen Proctor, DO - Last Filed: 08/23/24 15:23>
Orders/Labs/Results
Orders:
Orders
08/23/24 10:19
ECG [Electrocardiogram (*1)] Urgent
Reason for Study: Palpitations
EKG- Treatment ONCE
08/23/24 10:36
Complete Blood Count/With Diff Urgent
Comprehensive Metabolic Panel Urgent
TSH Urgent
08/23/24 12:08
ASA Classification Routine
Propofol [Diprivan] 40 mg IV NOW STA
08/23/24 12:54
Electrocardiogram (*1) Urgent
Reason for Study: Other
Other Reason for Exam: post cardioversion
08/23/24 12:55
EKG- Treatment ONCE
08/23/24 13:01
EKG- Treatment ONCE
08/23/24 14:04
Metoprolol Xl [Toprol Xl] 25 mg PO NOW STA
Abnormal Lab Results
08/23/24
10:36
MCH 32.3 H pg
(27.0-31.0)
Glucose 132 H mg/dl
(70-99)
Total Bilirubin 1.6 H mg/dl
(0.2-1.3)
08/23/24 10:36
08/23/24 10:36
Vital Signs
Initial and Last Documented VS:
Initial Vital Signs
Temp Pulse Resp BP Pulse Ox
97.3 F 150 18 146/83 99
08/23/24 10:26 08/23/24 10:26 08/23/24 10:26 08/23/24 10:26 08/23/24 10:26
Last Documented Vital Signs
Temp Pulse Resp BP Pulse Ox
97.9 F 90 19 125/66 98
08/23/24 12:58 08/23/24 14:16 08/23/24 14:15 08/23/24 14:16 08/23/24 14:00
Procedures
<LUIS Joyner - Last Filed: 08/23/24 14:55>
Cardioversion
Indication:: Afib
Performed by:: DR Proctor
Synchronized?: Yes
Energy Used: 150 joules
Number of attempts: 1
Successful?: Yes
ASA Risk Score: Class III
Any reaction or bad outcome to prior sedation/anesthesia?: No history of a reaction
Sedation level to be attained: moderate
Chart and allergies reviewed: Yes
Patient reassessed prior to sedation: Yes
Time out completed at (validating right patient & procedure): 12:47
History of difficult intubation: No
Airway free of obstruction: Yes
Patient has a gag reflex: Yes
Patient is able to open mouth: Yes
Patient has no dentures: Not applicable (dentures removed)
Patient has no loose teeth: Not applicable
Medication administered by Provider during Moderate Sedation: IV Propofol (mg)
Total dose administered: 50
Time drug administered: 12:48
Start Time: 12:48
Stop Time: 12:58
<Allen Proctor DO - Last Filed: 08/23/24 15:23>
Moderate Sedation
ASA Risk Score: Class II
Chart and allergies reviewed: Yes
Consent for anesthesia obtained: Yes
Time out completed (validating right patient & procedure): Yes
Moderate Sedation Start Time(when first medication is given): 12:48
History of difficult intubation: No
Airway free of obstruction: Yes
Patient has a gag reflex: Yes
Patient is able to open mouth: Yes
Patient has no dentures: Yes
Patient has no loose teeth: Yes
Medication administered by Provider during Moderate Sedation: IV Propofol (mg)
Total dose administered: 50
Time drug administered: 12:48
Moderate Sedation Procedure End Time: 12:58
<LUIS Joyner - Last Filed: 08/23/24 14:55>
MDM/Problems Addressed
Differential Diagnosis Includes:
not limited to: rapid atrial fib
MDM/Problems Addressed:
Patient is a 74-year-old female with A-fib on Eliquis presented from cardiology office. She normally is in normal sinus rhythm went to cardiology today for routine appointment and found to be in A-fib with a send to the ER for cardioversion. She
did take Eliquis today and has not skipped her Eliquis dose. She does admit that she felt mildly shaky yesterday and shaky today however no chest pain or shortness of breath. Patient presents in A-fib in the 140s. She denies any recent illness
fever chills. Case discussed with ED physician. Moderate sedation was used patient tolerated procedure well and converted with 150 J to normal sinus rhythm Pt was monitored here and remained awake alert no acute distress stable for discharge home.
As discussed with patient's senior software qa engineer DR Arreola pt should discontinue her amlodipine and start Toprol XL 25 mg. He does request that patient be given a dose in the ER which was ordered and she may start tomorrow. He did send a prescription
to patient's pharmacy.
<LUIS Joyner - Last Filed: 08/23/24 14:55>
*Critical Care Note
Total Time (30-74mins, 75-104mins- exclusive of procedures): Not Applicable
ED Attending Note
<LUIS Joyner - Last Filed: 08/23/24 14:55>
-
Portions of this chart may have been created with voice recognition software.� Occasional wrong word or��sound alike� substitutions may have occurred due to the inherent limitations of voice recognition software.
<Allen Proctor DO - Last Filed: 08/23/24 15:23>
ED Attending Note
Patient seen and examined by attending physician: Yes
ED Attending Note:
I have reviewed and agree with history and treatment plan by Aleyda Mcgovern. My exam revealed 74-year-old female with rapid atrial fibrillation. Sedation and cardioversion completed by myself and Aleyda Mcgovern successfully. Patient stable for
discharge and cardiology follow-up.
Discharge Plan
Departure
Patient Disposition: Home (Routine Discharge)
Date of Disposition: 08/23/24
Time of Disposition: 14:03
Patient with high blood pressure during this ER visit?: Yes
Condition: Fair
Covid-19: Not Applicable
Discharge Problem:
Atrial fibrillation, rapid
Instructions: Atrial Fibrillation (DC), MODERATE SEDATION ADULT, BLOOD PRESSURE
Prescriptions:
No Action
acetaminophen 325 mg Tablet
650 mg PO Q4HPRN PRN (Reason: mild pain,headache,temp >101F ) Qty: 0 0RF
pantoprazole 40 mg Tablet,Delayed Release (Dr/Ec)
40 mg PO DAILY Qty: 30 0RF
vitamin B complex Tablet
1 tab PO BID Qty: 0 0RF
jrfyvgcebmwg-qidgdxdi-cvwyjz Tablet
1 tab PO BID Qty: 0 0RF
Patient Comments:
Does not take
cholecalciferol (vitamin D3) [Vitamin D3] 50 mcg (2,000 unit) Capsule
50 mcg PO BID Qty: 0 0RF
Eliquis 5 mg Tablet
5 mg PO BID Qty: 60 1RF
amiodarone [Pacerone] 200 mg Tablet
200 mg PO BID Qty: 60 1RF
Rx Instructions:
200mg BID x 1 week, then 200mg daily
cyclobenzaprine 10 mg Tablet
5 mg PO .tid prn Qty: 20 0RF
furosemide 20 mg Tablet
20 mg PO DAILY Qty: 0 0RF
metoprolol tartrate 25 mg Tablet
25 mg PO BID Qty: 60 1RF
gabapentin 100 mg capsule
100 mg PO .TID prn Qty: 20 0RF
Referrals:
Josef Arreola MD [Active] -
Guadalupe Alcazar MD [Family Provider] -
Activity Restrictions/Additional Instructions:
As discussed continue your Eliquis. Your senior software qa engineer sent over a new prescription for Toprol XL 25 mg once daily. You were given a dose here in the ER and do not need to take any more of today's dose. Stop amlodipine. Return if any worsening of
symptoms
Interventions
Interventions:
*Risk Screen - Suicide Last Done: 08/23/24 10:28
*General Assessment Last Done: 08/23/24 10:26
*Neglect/Abuse Screening Last Done: 08/23/24 12:40
ED- Fall Risk Assessment Last Done: 08/23/24 11:05
*ED COVID-19 Vaccine History Last Done: 08/23/24 10:26
*Nursing Disposition Last Done: 08/23/24 14:24
ED- Cardiac Assessment Last Done: 08/23/24 11:05
ED- Pulmonary Assessment Last Done: 08/23/24 11:05
Discharge Date and Time
Discharge Date/Time: 08/23/24 14:24
Print Language: SAMOAN
[2024-08-23] MEDS: DIPRIVAN 40 MG IV (13:06)
[2024-08-23] MEDS: TOPROL XL 25 MG PO (14:16)
== END 2024-08-23 14:24 | disposition home or self-care (01) ==
LOC: EMR 10:18
PROVIDERS: Emergency Medicine; EMERGENCY PHYSICIAN Emergency Medicine; FAMILY PHYSICIAN Family Medicine
DX: I48.91 Unspecified atrial fibrillation (principal); Z79.01 Long term (current) use of anticoagulants; R03.0 Elevated blood-pressure reading, without diagnosis of hypertension
CPT/HCPCS: 99285; 92960; 96374; 99152; 80053; 84443; 85025; 93005

== ENCOUNTER → 2024-09-02 14:00 | Outpatient (REF) | payer OTHER, SELFPAY | LOC: HWRCS 14:00 | PROVIDERS: ATTENDING PHYSICIAN Internal Medicine; FAMILY PHYSICIAN Family Medicine | DX: Z98.890 Other specified postprocedural states (principal); I50.21 Acute systolic (congestive) heart failure | CPT/HCPCS: 93306 ==

== ENCOUNTER 2024-09-25 13:42 | Emergency (ER) | payer OTHER, SELFPAY ==
[2024-09-25] VITALS (21 sets, daily range): BP systolic 114–144; BP diastolic 58–100; BMI 21.6
[2024-09-25 14:13] LABS: % Basophils 0.7 % (0-2); % Eosinophils 1.6 % (0-6); % Immature Granulocytes 0.3 % (0-0.5); % Lymphocytes 25.6 % (20.5-51.1); % Monocytes 8.5 % (1.7-9.3); % Neutrophils 63.3 % (42.2-75.2); Absolute Basophils 0.1 10^3/uL (0-0.2); Absolute Eosinophils 0.1 10^3/uL (0-0.7); Absolute Lymphocytes 1.9 10^3/uL (1.2-3.4); Absolute Monocytes 0.6 10^3/uL (0.1-0.6); Absolute Neutrophils 4.6 10^3/uL (1.4-6.5); Hemoglobin 13.8 g/dL (12.0-16.0); Mean Corp Hgb Conc. 34.5 g/dL (33.0-37.0); Mean Corpuscular Hgb 32.2 pg (27.0-31.0); Mean Corpuscular Volume 93.2 fL (81.0-99.0); Mean Platelet Volume 9.1 fL (7.4-10.4); Nucleated Red Blood Cells % 0 %; Platelet Count 336 10^3/uL (130-400); Red Blood Cell Count 4.29 10^6/uL (4.20-5.40); Red Cell Dist. Width 12.5 % (11.5-14.5); White Blood Cell Count 7.3 10^3/uL (4.8-10.8)
[2024-09-25 14:27] LABS: Blood Urea Nitrogen 21 mg/dl (7-17); Calcium 9.7 mg/dl (8.4-10.2); Carbon Dioxide 28 mmol/L (22-30); Chloride 99 mmol/L (98-107); Estimated Creatinine Clearance 63 ml/min; Glucose 97 mg/dl (70-99); Sodium 135 mmol/L (135-145); eGFR > 60.00
--- NOTE | 2024-09-25 14:36 | ED.GENMED ---
History of Present Illness
General
Chief Complaint: Cardiac Symptoms
Source: patient and spouse
Time Seen by Provider: 09/25/24 14:22
History of Present Illness
History of Present Illness:
This patient is a 74-year-old female presents emergency department after going for a walk, returning home, and then having a bowel movement. Shortly after, she started to note that her heart was beating fast which continues. She had a brief period
of lightheadedness which is now fully resolved but the palpitations continue. She denies associated chest pain or pressure, nausea, vomiting, diaphoresis, dyspnea, back pain, headache, bleeding, or other symptoms. Patient is fully compliant with
all her medications including her DOAC. Patient was cardioverted for atrial fibrillation approximately 1 month ago.
Past History
Past History
ED Past Medical History: Other (afib, raynauds, hf, htn)
ED Past Surgical History: Cardiac (pacer, mvr (MV repair), atrial appendage) and Orthopedic (Lumbar surgery)
Social History
Tobacco: Non-smoker
Alcohol: None
Personal:
Living: with family
Employment: Employed
Phy Exam
Physical Exam
Physical Exam:
GENERAL: Alert , in no apparent distress
EYE: pupils equal and reactive
NECK: Supple, no significant adenopathy.
ENT: o/p clr, mmm.
CARDIAC: irreg irreg
LUNGS: Clear breath sounds bilaterally, no acute respiratory distress, no wheezes/rales/rhonchi
ABDOMEN: Soft, without focal tenderness, no r/g, no cvat
NEUROLOGICAL: Alert and oriented, no focal neuro deficits
SKIN: Warm and dry, skin intact.
MUSCULOSKELETAL: No edema, well perfused.
PSYCH: Normal and appropriate interaction.
Course
Orders/Labs/Results
Orders:
Orders
09/25/24 13:47
Electrocardiogram (*1) Urgent
Reason for Study: Chest Pain
EKG- Treatment ONCE
09/25/24 14:01
Basic Metabolic Panel Urgent
Complete Blood Count/With Diff Urgent
09/25/24 14:36
Diltiazem HCl [Cardizem] 10 mg IV NOW STA
09/25/24 16:09
Propofol [Diprivan] 20 ml .ROUTE .STK-MED
09/25/24 16:27
Electrocardiogram (*1) Urgent
Reason for Study: Atrial Fibrillation
EKG- Treatment ONCE
Abnormal Lab Results
09/25/24
14:01
MCH 32.2 H pg
(27.0-31.0)
BUN 21 H mg/dl
(7-17)
09/25/24 14:01
09/25/24 14:01
Vital Signs
Initial and Last Documented VS:
Initial Vital Signs
Temp Pulse Resp BP Pulse Ox
97.5 F 139 16 144/100 98
09/25/24 13:43 09/25/24 13:43 09/25/24 13:43 09/25/24 13:43 09/25/24 13:43
Last Documented Vital Signs
Temp Pulse Resp BP Pulse Ox
97.9 F 86 17 125/62 100
09/25/24 16:39 09/25/24 17:20 09/25/24 17:20 09/25/24 17:20 09/25/24 17:20
Procedures
Cardioversion
Indication:: Afib
Performed by:: Manuelito Billy
Synchronized?: Yes
Energy Used: 200 joules
Number of attempts: 1
Successful?: Yes
ASA Risk Score: Class II
Any reaction or bad outcome to prior sedation/anesthesia?: No history of a reaction
Sedation level to be attained: moderate
Chart and allergies reviewed: Yes
Patient reassessed prior to sedation: Yes
Time out completed at (validating right patient & procedure): 16:24
History of difficult intubation: No
Airway free of obstruction: Yes
Patient has a gag reflex: Yes
Patient is able to open mouth: Yes
Patient has no dentures: Yes
Patient has no loose teeth: Yes
Medication administered by Provider during Moderate Sedation: IV Propofol (mg)
Total dose administered: 40
Time drug administered: 16:24
Start Time: 16:24
Stop Time: 16:39
*Critical Care Note
Total Time (30-74mins, 75-104mins- exclusive of procedures): Not Applicable
Update Note
Update Note:
Patient presents to the Emergency Department with palpitations
Number and Complexity of Problems Addressed at the Encounter
� Chronic conditions affecting care:
� Acute Exacerbation and/or Progression of Chronic Illness:
� Differential Diagnosis includes:but not limited to svt, afib, aflutter, electrolyte abnl, etc etc
Amount and/or Complexity of Data to be Reviewed and Analyzed
� I performed an independent evaluation of and my interpretation is:
EKG: read by me, tachycardic, a flutter/fib, nonspec st/t but no stemi
CT:
Xrays:
Laboratory Studies: Generally unremarkable
Other:
� Review of other/old records reveals:
� Clinical information was obtained by an independent historian: Partner who is bedside
� Prescriptions/Medications Considered but not given:
� Further testing considered but not performed:
Risk of Complications and/or Morbidity or Mortality of Patient Management
� Social determinants of health affecting care:
� Discussion with other providers (PCP, Hospitalists, Consultants, etc):
� Escalation of care including admission/observation vs risk of discharge considered: Case discussed with cardiology, Dr. Mckinney as well as patient� My original intention was to try to rate control her with IV medications here
however this was not entirely successful, therefore we proceeded with cardioversion given cardiology recommendation. They are aware that we did this cardioversion and they will have scheduled follow-up for patient to talk about ablation versus
antiarrhythmic. Cardioversion successful, repeat ECG normal sinus rhythm, patient asymptomatic.
ED Attending Note
-
Portions of this chart may have been created with voice recognition software.� Occasional wrong word or��sound alike� substitutions may have occurred due to the inherent limitations of voice recognition software.
Discharge Plan
Departure
Patient Disposition: Home (Routine Discharge)
Date of Disposition: 09/25/24
Time of Disposition: 17:16
Patient with high blood pressure during this ER visit?: Yes
Condition: Good
Discharge Problem:
Atrial fibrillation
Instructions: Atrial fibrillation, MODERATE SEDATION ADULT, BLOOD PRESSURE
Prescriptions:
No Action
acetaminophen 325 mg Tablet
650 mg PO Q4HPRN PRN (Reason: mild pain,headache,temp >101F ) Qty: 0 0RF
pantoprazole 40 mg Tablet,Delayed Release (Dr/Ec)
40 mg PO DAILY Qty: 30 0RF
vitamin B complex Tablet
1 tab PO BID Qty: 0 0RF
dkiswadnwmhq-wndguerv-ljkjcf Tablet
1 tab PO BID Qty: 0 0RF
Patient Comments:
Does not take
cholecalciferol (vitamin D3) [Vitamin D3] 50 mcg (2,000 unit) Capsule
50 mcg PO BID Qty: 0 0RF
Eliquis 5 mg Tablet
5 mg PO BID Qty: 60 1RF
amiodarone [Pacerone] 200 mg Tablet
200 mg PO BID Qty: 60 1RF
Rx Instructions:
200mg BID x 1 week, then 200mg daily
cyclobenzaprine 10 mg Tablet
5 mg PO .tid prn Qty: 20 0RF
furosemide 20 mg Tablet
20 mg PO DAILY Qty: 0 0RF
metoprolol tartrate 25 mg Tablet
25 mg PO BID Qty: 60 1RF
gabapentin 100 mg capsule
100 mg PO .TID prn Qty: 20 0RF
Referrals:
Guadalupe Alcazar MD [Family Provider] -
Activity Restrictions/Additional Instructions:
PLEASE CONTACT YOUR CELL POURER THIS WEEK FOR CLOSE FOLLOW-UP. IT IS VERY IMPORTANT THAT YOU CONTINUE YOUR MEDICATIONS USUAL INCLUDING YOUR BLOOD THINNING MEDICATION. IF YOU DEVELOP CHEST PAIN, DIZZINESS, BLEEDING, PALPITATIONS, OR OTHER
WORRISOME SIGNS, PLEASE RETURN TO THE ER IMMEDIATELY.
Interventions
Interventions:
*Risk Screen - Suicide Last Done: 09/25/24 13:43
*General Assessment Last Done: 09/25/24 13:55
*Neglect/Abuse Screening Last Done: 09/25/24 13:43
ED- Fall Risk Assessment Last Done: 09/25/24 13:55
*ED COVID-19 Vaccine History Last Done: 09/25/24 13:55
*Nursing Disposition Last Done: 09/25/24 17:34
ED- Pulmonary Assessment Last Done: 09/25/24 13:55
ED- Cardiac Assessment Last Done: 09/25/24 13:55
Discharge Date and Time
Discharge Date/Time: 09/25/24 17:33
Print Language: CAMBODIAN
[2024-09-25] MEDS: CARDIZEM 10 MG IV (14:39)
== END 2024-09-25 17:33 | disposition home or self-care (01) ==
LOC: EMR 13:42
PROVIDERS: Emergency Medicine; EMERGENCY PHYSICIAN Emergency Medicine; FAMILY PHYSICIAN Family Medicine
DX: I48.91 Unspecified atrial fibrillation (principal); R42 Dizziness and giddiness; I10 Essential (primary) hypertension; I73.00 Raynaud's syndrome without gangrene; Z79.899 Other long term (current) drug therapy; Z79.01 Long term (current) use of anticoagulants
CPT/HCPCS: 92960; 99285; 99152; 96374; 80048; 85025; 93005

== ENCOUNTER → 2025-04-10 09:48 | Outpatient (REF) | payer OTHER, SELFPAY | LOC: HWRCS 09:48 | PROVIDERS: ATTENDING PHYSICIAN Thoracic Surgery (Cardiothoracic Vascular Surgery) | DX: Z98.890 Other specified postprocedural states (principal) | CPT/HCPCS: 93306 ==